=== PATIENT | male | born 1990 | race Caucasian/White ===

== ENCOUNTER 2017-11-17 15:43 | Inpatient (IN) | payer OTHER ==
[2017-11-17] MEDS ORDERED: ACETAMINOPHEN 325 MG TAB PO ×2 (17:00→18:30)
[2017-11-17] MEDS ORDERED: HYDROmorphONE 1 MG/ML SYG (17:33)
[2017-11-17] MEDS: HYDROmorphONE 2 MG/ML SYG IV (17:35)
[2017-11-17 17:37] LABS: ADD MAN DIFF? NO
[2017-11-17 17:38] LABS: WHITE BLOOD COUNT 7.6 10^3/ul (4.8-10.8)
[2017-11-17 17:38] LABS: BASOPHILS % 0.5 % (0.0-2.0); EOSINOPHILS # 0.5 10^3/ul (0.0-0.5); EOSINOPHILS % 6.8 % (0.0-7.0); HEMATOCRIT 37.5 % (42.0-52.0); HEMOGLOBIN 12.3 g/dl (14.0-18.0); LYMPHOCYTES # 1.5 10^3/ul (0.8-2.9); MEAN CORPUSCULAR HEMOGLOBIN 27.3 pg (29.0-33.0); MEAN CORPUSCULAR HGB CONC 32.8 g/dl (32.0-37.0); MEAN CORPUSCULAR VOLUME 83.1 fl (82.0-101.0); MEAN PLATELET VOLUME 9.5 fl (7.4-10.4); MONOCYTE # 0.3 10^3/ul (0.3-0.9); MONOCYTES % 4.2 % (0.0-11.0); NEUTROPHIL # 5.3 10^3/ul (1.6-7.5); PLATELET COUNT 381 10^3/UL (140-415); RED BLOOD COUNT 4.51 10^6/ul (4.70-6.10); RED CELL DISTRIBUTION WIDTH 13.4 % (11.5-14.5)
[2017-11-17 17:57] LABS: LACTIC ACID 1.8 mmol/L (0.5-2.0)
[2017-11-17 17:58] LABS: ALANINE AMINOTRANSFERASE 30 IU/L (13-69); ALBUMIN/GLOBULIN RATIO 0.63; ALKALINE PHOSPHATASE 146 IU/L (42-121); ANION GAP 13 (8-16); ASPARTATE AMINO TRANSFERASE 24 IU/L (15-46); BILIRUBIN,INDIRECT 0.5 mg/dl (0-1.1); BILIRUBIN,TOTAL 0.5 mg/dl (0.2-1.3); BLOOD UREA NITROGEN 10 mg/dl (7-20); CALCIUM 8.3 mg/dl (8.4-10.2); CARBON DIOXIDE 24 mmol/L (21-31); CHLORIDE 106 mmol/L (97-110); CREATININE 0.74 mg/dl (0.61-1.24); GLUCOSE 174 mg/dl (70-220); POTASSIUM 4.1 mmol/L (3.5-5.1); SODIUM 139 mmol/L (135-144); TOTAL PROTEIN 7.7 g/dl (6.1-8.1)
[2017-11-17 17:59] LABS: INR 1.25; PARTIAL THROMBOPLASTIN TIME 34.1 Sec (25.0-35.0); PROTIME 15.9 Sec (11.9-14.9); PT RATIO 1.2
[2017-11-17 18:11] LABS: TROPONIN-I < 0.012 ng/ml (0.000-0.120)
[2017-11-17] MEDS ORDERED: ONDANSETRON 4 MG INJ IV (18:30)
[2017-11-17] MEDS ORDERED: VANCOMYCIN IV PER PHARMACY XX (18:30)
[2017-11-17] MEDS ORDERED: ZOLPIDEM 5 MG TAB PO (18:30)
[2017-11-17] MEDS ORDERED: NACL 0.9% 3 ML SYG IV (18:30)
[2017-11-17] MEDS ORDERED: MAGNESIUM HYDROXIDE 30ML CUP PO (18:30)
[2017-11-17] MEDS: PIPER-TAZO 3.375 GM IV (PMX) 100 ML IVPB (19:27)
[2017-11-17] MEDS: VANCOMYCIN 1.5 GM in SOD CHLORIDE 0.9% 250 ML IVPB (20:02)
[2017-11-17] MEDS: APIXABAN 5 MG TABLET PO (21:16)
[2017-11-17 21:53] LABS: ERYTHROCYTE SEDIMENTATION RATE 47 mm/Hr (0-15)
[2017-11-17 21:55] LABS: LACTIC ACID 1.3 mmol/L (0.5-2.0)
[2017-11-17] MEDS ORDERED: ALBUTEROL/IPRATROPIUM (NEB) 3 ML AMP HHN (22:30)
[2017-11-17 23:40] LABS: LACTIC ACID 2.1 mmol/L (0.5-2.0)
[2017-11-18] MEDS: PIPER-TAZO 3.375 GM IV (PMX) 100 ML IVPB ×4 (00:18→18:32)
[2017-11-18] MEDS: ONDANSETRON 4 MG INJ IV (02:17)
[2017-11-18] MEDS: GUAIFENESIN/DM 5ML CUP PO (02:39)
[2017-11-18] MEDS: traMADol 50 MG TAB PO ×4 (02:39→21:05)
[2017-11-18] MEDS: VANCOMYCIN 1.25 GM in SOD CHLORIDE 0.9% 250 ML IVPB ×2 (04:33→12:00)
[2017-11-18 06:50] LABS: ADD MAN DIFF? NO
[2017-11-18 06:52] LABS: BASOPHIL # 0.1 10^3/ul (0.0-0.1); BASOPHILS % 0.6 % (0.0-2.0); EOSINOPHILS # 0.7 10^3/ul (0.0-0.5); EOSINOPHILS % 7.3 % (0.0-7.0); HEMATOCRIT 32.1 % (42.0-52.0); HEMOGLOBIN 10.5 g/dl (14.0-18.0); LYMPHOCYTES # 1.6 10^3/ul (0.8-2.9); LYMPHOCYTES % 17.3 % (15.0-51.0); MEAN CORPUSCULAR HEMOGLOBIN 27.1 pg (29.0-33.0); MEAN CORPUSCULAR HGB CONC 32.7 g/dl (32.0-37.0); MEAN CORPUSCULAR VOLUME 82.9 fl (82.0-101.0); MEAN PLATELET VOLUME 9.2 fl (7.4-10.4); MONOCYTE # 0.5 10^3/ul (0.3-0.9); MONOCYTES % 5.7 % (0.0-11.0); NEUTROPHIL # 6.2 10^3/ul (1.6-7.5); NEUTROPHILS % 68.9 % (39.0-77.0); PLATELET COUNT 346 10^3/UL (140-415); RED BLOOD COUNT 3.87 10^6/ul (4.70-6.10); RED CELL DISTRIBUTION WIDTH 13.4 % (11.5-14.5)
[2017-11-18 07:14] LABS: ANION GAP 20 (8-16); BLOOD UREA NITROGEN 7 mg/dl (7-20); CALCIUM 7.2 mg/dl (8.4-10.2); CARBON DIOXIDE 22 mmol/L (21-31); CHLORIDE 106 mmol/L (97-110); CREATININE 0.66 mg/dl (0.61-1.24); GLUCOSE 106 mg/dl (70-220); MAGNESIUM 1.4 mg/dl (1.7-2.5); PHOSPHORUS 3.1 mg/dl (2.5-4.9); POTASSIUM 3.6 mmol/L (3.5-5.1); SODIUM 144 mmol/L (135-144)
[2017-11-18 07:15] LABS: LACTIC ACID 0.8 mmol/L (0.5-2.0)
[2017-11-18 07:47] LABS: HEMOGLOBIN A1C 6.1 % (0-5.9)
[2017-11-18] MEDS: APIXABAN 5 MG TABLET PO ×2 (08:39→21:04)
[2017-11-18] MEDS ORDERED: MAGNESIUM SULFATE 4 GM/100 ML 100 ML IVPB (10:30)
[2017-11-18] MEDS: MAG SULFATE 2GM IN 50 ML IVPB ×2 (10:30→12:51)
[2017-11-18 19:36] LABS: VANCOMYCIN,TROUGH 5.8 ug/ml (10.0-20.0)
[2017-11-18] MEDS: VANCOMYCIN 1.5 GM in SOD CHLORIDE 0.9% 250 ML IVPB (21:04)
[2017-11-19] MEDS: PIPER-TAZO 3.375 GM IV (PMX) 100 ML IVPB ×4 (00:14→18:33)
[2017-11-19] MEDS: traMADol 50 MG TAB PO ×3 (03:16→20:40)
[2017-11-19] MEDS: VANCOMYCIN 1.5 GM in SOD CHLORIDE 0.9% 250 ML IVPB ×3 (04:25→20:40)
[2017-11-19 07:04] LABS: ADD MAN DIFF? NO
[2017-11-19 07:12] LABS: BASOPHILS % 0.3 % (0.0-2.0); EOSINOPHILS # 0.2 10^3/ul (0.0-0.5); EOSINOPHILS % 2.2 % (0.0-7.0); HEMATOCRIT 37.3 % (42.0-52.0); LYMPHOCYTES # 1.5 10^3/ul (0.8-2.9); LYMPHOCYTES % 14.7 % (15.0-51.0); MEAN CORPUSCULAR HEMOGLOBIN 26.4 pg (29.0-33.0); MEAN CORPUSCULAR HGB CONC 32.2 g/dl (32.0-37.0); MEAN CORPUSCULAR VOLUME 82.2 fl (82.0-101.0); MEAN PLATELET VOLUME 9.6 fl (7.4-10.4); MONOCYTE # 0.7 10^3/ul (0.3-0.9); MONOCYTES % 7.4 % (0.0-11.0); NEUTROPHIL # 7.5 10^3/ul (1.6-7.5); NEUTROPHILS % 74.8 % (39.0-77.0); PLATELET COUNT 398 10^3/UL (140-415); RED BLOOD COUNT 4.54 10^6/ul (4.70-6.10); RED CELL DISTRIBUTION WIDTH 13.2 % (11.5-14.5)
[2017-11-19 07:34] LABS: ANION GAP 13 (8-16); BLOOD UREA NITROGEN 8 mg/dl (7-20); CALCIUM 8.3 mg/dl (8.4-10.2); CARBON DIOXIDE 24 mmol/L (21-31); CHLORIDE 103 mmol/L (97-110); CREATININE 0.74 mg/dl (0.61-1.24); GLUCOSE 122 mg/dl (70-220); MAGNESIUM 1.8 mg/dl (1.7-2.5); POTASSIUM 4.1 mmol/L (3.5-5.1); SODIUM 136 mmol/L (135-144)
[2017-11-19] MEDS: APIXABAN 5 MG TABLET PO ×2 (09:00→20:39)
[2017-11-20] MEDS: PIPER-TAZO 3.375 GM IV (PMX) 100 ML IVPB ×4 (00:17→17:40)
[2017-11-20 01:24] LABS: TROPONIN-I < 0.012 ng/ml (0.000-0.120)
[2017-11-20] MEDS: VANCOMYCIN 1.5 GM in SOD CHLORIDE 0.9% 250 ML IVPB ×3 (04:18→20:51)
[2017-11-20 07:17] LABS: ADD MAN DIFF? NO
[2017-11-20 07:33] LABS: BASOPHILS % 0.3 % (0.0-2.0); EOSINOPHILS # 0.7 10^3/ul (0.0-0.5); EOSINOPHILS % 6.9 % (0.0-7.0); HEMATOCRIT 36.4 % (42.0-52.0); HEMOGLOBIN 11.9 g/dl (14.0-18.0); LYMPHOCYTES # 1.4 10^3/ul (0.8-2.9); LYMPHOCYTES % 14.4 % (15.0-51.0); MEAN CORPUSCULAR HEMOGLOBIN 26.8 pg (29.0-33.0); MEAN CORPUSCULAR HGB CONC 32.7 g/dl (32.0-37.0); MEAN PLATELET VOLUME 9.7 fl (7.4-10.4); MONOCYTE # 0.6 10^3/ul (0.3-0.9); MONOCYTES % 6.1 % (0.0-11.0); NEUTROPHIL # 7.1 10^3/ul (1.6-7.5); NEUTROPHILS % 71.8 % (39.0-77.0); PLATELET COUNT 349 10^3/UL (140-415); RED BLOOD COUNT 4.44 10^6/ul (4.70-6.10); RED CELL DISTRIBUTION WIDTH 13.2 % (11.5-14.5)
[2017-11-20 07:33] LABS: WHITE BLOOD COUNT 9.9 10^3/ul (4.8-10.8)
[2017-11-20 07:39] LABS: ALANINE AMINOTRANSFERASE 28 IU/L (13-69); ALBUMIN 2.6 g/dl (3.3-4.9); ALBUMIN/GLOBULIN RATIO 0.66; ALKALINE PHOSPHATASE 141 IU/L (42-121); ANION GAP 15 (8-16); ASPARTATE AMINO TRANSFERASE 26 IU/L (15-46); BILIRUBIN,INDIRECT 0.4 mg/dl (0-1.1); BILIRUBIN,TOTAL 0.4 mg/dl (0.2-1.3); BLOOD UREA NITROGEN 10 mg/dl (7-20); CALCIUM 7.8 mg/dl (8.4-10.2); CARBON DIOXIDE 26 mmol/L (21-31); CHLORIDE 99 mmol/L (97-110); CREATININE 0.69 mg/dl (0.61-1.24); GLUCOSE 110 mg/dl (70-220); POTASSIUM 4.2 mmol/L (3.5-5.1); SODIUM 136 mmol/L (135-144); TOTAL PROTEIN 6.5 g/dl (6.1-8.1)
[2017-11-20 07:52] LABS: TROPONIN-I < 0.012 ng/ml (0.000-0.120)
[2017-11-20 08:15] LABS: CHOLESTEROL 105 mg/dl (100-200)
[2017-11-20 08:15] LABS: CHOL/HDL RATIO 6.1 RATIO; HDL CHOLESTEROL 17 mg/dl (28-63); LDL CHOLESTEROL,CALCULATED 69 mg/dl; TRIGLYCERIDES 93 mg/dl (0-149)
[2017-11-20] MEDS: APIXABAN 5 MG TABLET PO ×2 (09:00→20:51)
[2017-11-20] MEDS: ATENOLOL 25 MG TAB PO ×2 (09:00→20:52)
[2017-11-20] MEDS: morphine 2 MG INJ IV (10:16)
[2017-11-20 11:39] LABS: TROPONIN-I < 0.012 ng/ml (0.000-0.120)
[2017-11-20 11:59] LABS: VANCOMYCIN,TROUGH 16.5 ug/ml (10.0-20.0)
[2017-11-20] MEDS: traMADol 50 MG TAB PO (17:41)
[2017-11-21] MEDS: PIPER-TAZO 3.375 GM IV (PMX) 100 ML IVPB ×4 (00:28→17:13)
[2017-11-21] MEDS: VANCOMYCIN 1.5 GM in SOD CHLORIDE 0.9% 250 ML IVPB ×3 (04:04→21:42)
[2017-11-21] MEDS: ATENOLOL 25 MG TAB PO ×2 (08:49→21:43)
[2017-11-21] MEDS: APIXABAN 5 MG TABLET PO ×2 (08:50→21:42)
[2017-11-21] MEDS: traMADol 50 MG TAB PO (17:13)
[2017-11-22] MEDS: PIPER-TAZO 3.375 GM IV (PMX) 100 ML IVPB ×2 (01:29→06:41)
[2017-11-22] MEDS: VANCOMYCIN 1.5 GM in SOD CHLORIDE 0.9% 250 ML IVPB (05:03)
[2017-11-22] MEDS ORDERED: PROPOFOL 20 ML (09:45)
[2017-11-22] MEDS ORDERED: MIDAZOLAM 1 MG/ML 2 ML INJ (09:45)
[2017-11-22 09:57] LABS: INR 1.43; PROTIME 17.7 Sec (11.9-14.9); PT RATIO 1.4
[2017-11-22 09:58] LABS: PARTIAL THROMBOPLASTIN TIME 38.3 Sec (25.0-35.0)
[2017-11-22 10:14] LABS: ANION GAP 11 (8-16); BLOOD UREA NITROGEN 14 mg/dl (7-20); CARBON DIOXIDE 25 mmol/L (21-31); CHLORIDE 107 mmol/L (97-110); CREATININE 0.75 mg/dl (0.61-1.24); GLUCOSE 111 mg/dl (70-220); POTASSIUM 3.7 mmol/L (3.5-5.1); SODIUM 139 mmol/L (135-144)
[2017-11-22] MEDS: APIXABAN 5 MG TABLET PO ×2 (15:59→21:19)
[2017-11-22] MEDS: LEVOFLOXACIN 500 MG TAB PO (15:59)
[2017-11-22] MEDS: traMADol 50 MG TAB PO (16:00)
[2017-11-22] MEDS: ATENOLOL 25 MG TAB PO ×2 (16:00→21:20)
[2017-11-23 04:27] LABS: VANCOMYCIN,TROUGH 6.9 ug/ml (10.0-20.0)
[2017-11-23] MEDS: LEVOFLOXACIN 500 MG TAB PO (06:51)
[2017-11-23] MEDS: ATENOLOL 25 MG TAB PO ×2 (09:30→20:43)
[2017-11-23] MEDS: APIXABAN 5 MG TABLET PO ×2 (09:31→20:43)
[2017-11-23] MEDS ORDERED: VANCOMYCIN IV PER PHARMACY XX (12:30)
[2017-11-23] MEDS: VANCOMYCIN 1.5 GM in SOD CHLORIDE 0.9% 250 ML IVPB (15:44)
[2017-11-23] MEDS: traMADol 50 MG TAB PO ×2 (15:53→19:04)
[2017-11-23] MEDS: CEFTRIAXONE 2 GM/50 ML (PMX) 50 ML IVPB (19:05)
[2017-11-24] MEDS: VANCOMYCIN 1.5 GM in SOD CHLORIDE 0.9% 250 ML IVPB ×3 (00:01→16:50)
[2017-11-24] MEDS: traMADol 50 MG TAB PO ×3 (00:02→21:14)
[2017-11-24] MEDS: morphine 2 MG INJ IV (01:46)
[2017-11-24] MEDS: LEVOFLOXACIN 500 MG TAB PO (06:21)
[2017-11-24] MEDS: ATENOLOL 25 MG TAB PO ×2 (08:16→21:12)
[2017-11-24] MEDS: APIXABAN 5 MG TABLET PO ×2 (08:16→21:11)
[2017-11-24] MEDS: CEFTRIAXONE 2 GM/50 ML (PMX) 50 ML IVPB (13:48)
[2017-11-24 16:27] LABS: CREATININE 0.69 mg/dl (0.61-1.24)
[2017-11-24 16:27] LABS: BLOOD UREA NITROGEN 11 mg/dl (7-20)
[2017-11-24 16:31] LABS: VANCOMYCIN,TROUGH 14.2 ug/ml (10.0-20.0)
[2017-11-24 17:08] LABS: HIV 1&2 ANTIBODY NEGATIVE (NEGATIVE)
[2017-11-24 21:33] LABS: RAPID PLASMA REAGIN NONREACTIVE (NR)
[2017-11-24] MEDS ORDERED: VANCOMYCIN 1.5 GM in SOD CHLORIDE 0.9% 250 ML IVPB (23:00)
[2017-11-25] MEDS: VANCOMYCIN 1.5 GM in SOD CHLORIDE 0.9% 250 ML IVPB ×3 (01:34→16:04)
[2017-11-25] MEDS: LEVOFLOXACIN 500 MG TAB PO (05:49)
[2017-11-25] MEDS: traMADol 50 MG TAB PO ×2 (05:50→14:31)
[2017-11-25 06:12] LABS: ADD MAN DIFF? NO
[2017-11-25 06:16] LABS: BASOPHILS % 0.3 % (0.0-2.0); EOSINOPHILS # 1.3 10^3/ul (0.0-0.5); HEMATOCRIT 31.1 % (42.0-52.0); LYMPHOCYTES # 1.9 10^3/ul (0.8-2.9); LYMPHOCYTES % 21.2 % (15.0-51.0); MEAN CORPUSCULAR HEMOGLOBIN 26.9 pg (29.0-33.0); MEAN CORPUSCULAR HGB CONC 32.2 g/dl (32.0-37.0); MEAN CORPUSCULAR VOLUME 83.6 fl (82.0-101.0); MEAN PLATELET VOLUME 9.8 fl (7.4-10.4); MONOCYTE # 0.4 10^3/ul (0.3-0.9); MONOCYTES % 4.6 % (0.0-11.0); NEUTROPHIL # 5.3 10^3/ul (1.6-7.5); NEUTROPHILS % 58.5 % (39.0-77.0); PLATELET COUNT 239 10^3/UL (140-415); RED BLOOD COUNT 3.72 10^6/ul (4.70-6.10); RED CELL DISTRIBUTION WIDTH 14.4 % (11.5-14.5)
[2017-11-25 06:16] LABS: WHITE BLOOD COUNT 9.1 10^3/ul (4.8-10.8)
[2017-11-25 07:24] LABS: ALANINE AMINOTRANSFERASE 46 IU/L (13-69); ALBUMIN 2.8 g/dl (3.3-4.9); ALBUMIN/GLOBULIN RATIO 0.65; ALKALINE PHOSPHATASE 136 IU/L (42-121); ANION GAP 11 (8-16); ASPARTATE AMINO TRANSFERASE 42 IU/L (15-46); BILIRUBIN,INDIRECT 0.5 mg/dl (0-1.1); BILIRUBIN,TOTAL 0.5 mg/dl (0.2-1.3); BLOOD UREA NITROGEN 12 mg/dl (7-20); CALCIUM 8.4 mg/dl (8.4-10.2); CARBON DIOXIDE 26 mmol/L (21-31); CHLORIDE 107 mmol/L (97-110); CREATININE 0.78 mg/dl (0.61-1.24); GLUCOSE 98 mg/dl (70-220); POTASSIUM 4.4 mmol/L (3.5-5.1); SODIUM 140 mmol/L (135-144); TOTAL PROTEIN 7.1 g/dl (6.1-8.1)
[2017-11-25] MEDS: APIXABAN 5 MG TABLET PO ×2 (08:11→21:01)
[2017-11-25] MEDS: ATENOLOL 25 MG TAB PO ×2 (08:12→21:06)
[2017-11-25] MEDS: LIDOCAINE 2% JELLY 5 ML TOP (10:46)
[2017-11-25] MEDS: CEFTRIAXONE 2 GM/50 ML (PMX) 50 ML IVPB (14:26)
[2017-11-26] MEDS: VANCOMYCIN 1.5 GM in SOD CHLORIDE 0.9% 250 ML IVPB ×3 (01:56→16:52)
[2017-11-26] MEDS: traMADol 50 MG TAB PO (01:56)
[2017-11-26] MEDS: LEVOFLOXACIN 500 MG TAB PO (05:26)
[2017-11-26] MEDS: ATENOLOL 25 MG TAB PO ×2 (09:14→21:00)
[2017-11-26] MEDS: APIXABAN 5 MG TABLET PO ×2 (09:14→21:06)
[2017-11-26] MEDS: CEFTRIAXONE 2 GM/50 ML (PMX) 50 ML IVPB (13:32)
[2017-11-27] MEDS: VANCOMYCIN 1.5 GM in SOD CHLORIDE 0.9% 250 ML IVPB ×2 (01:27→08:27)
[2017-11-27] MEDS: LEVOFLOXACIN 500 MG TAB PO (05:21)
[2017-11-27 08:21] LABS: BLOOD UREA NITROGEN 12 mg/dl (7-20)
[2017-11-27 08:21] LABS: CREATININE 0.79 mg/dl (0.61-1.24)
[2017-11-27] MEDS: DOCUSATE SODIUM 100 MG CAP PO (08:27)
[2017-11-27] MEDS: APIXABAN 5 MG TABLET PO (08:27)
[2017-11-27] MEDS: ATENOLOL 25 MG TAB PO (08:28)
== END 2017-11-27 12:00 | disposition left against medical advice (07) | DRG 314 ==
LOC: E/R 15:43 → MS4 16:44
PROVIDERS: Internal Medicine
PROC: B24BZZ4 Ultrasonography of Heart with Aorta, Transesophageal (ICD-10-PCS; 2017-11-22 09:00)
PROC: 0HBJXZX Excision of Left Upper Leg Skin, External Approach, Diagnostic (ICD-10-PCS; principal; 2017-11-22 09:20)
DX: T82.6XXA Infection and inflammatory reaction due to cardiac valve prosthesis, initial encounter (principal); I33.0 Acute and subacute infective endocarditis; J18.9 Pneumonia, unspecified organism; I26.99 Other pulmonary embolism without acute cor pulmonale; I42.9 Cardiomyopathy, unspecified; J90 Pleural effusion, not elsewhere classified; E83.42 Hypomagnesemia; E83.51 Hypocalcemia; L98.9 Disorder of the skin and subcutaneous tissue, unspecified; F15.10 Other stimulant abuse, uncomplicated; F12.10 Cannabis abuse, uncomplicated; D64.9 Anemia, unspecified; R21 Rash and other nonspecific skin eruption; I25.10 Atherosclerotic heart disease of native coronary artery without angina pectoris; F17.210 Nicotine dependence, cigarettes, uncomplicated; Y84.8 Other medical procedures as the cause of abnormal reaction of the patient, or of later complication, without mention of misadventure at the time of the procedure; Y92.89 Other specified places as the place of occurrence of the external cause; Z79.02 Long term (current) use of antithrombotics/antiplatelets; Z59.0 Homelessness; Z89.421 Acquired absence of other right toe(s); Z89.021 Acquired absence of right finger(s); Z95.0 Presence of cardiac pacemaker; Z95.2 Presence of prosthetic heart valve
CPT/HCPCS: 36415; 71045; 71250; 73200; 80048; 80053; 80061; 80202; 82565; 83036; 83605; 83735; 84100; 84443; 84484; 84520; 85025; 85610; 85651; 85730; 86592; 86703; 87040; 87081; 87086; 88305; 93005; 93306; 93312; 93320; 93325; 93970; 96365; 96368; 96375; 99285-25

== ENCOUNTER 2017-12-05 21:50 | Inpatient (IN) | payer OTHER ==
[2017-12-06 02:47] LABS: ADD MAN DIFF? NO
[2017-12-06 02:48] LABS: WHITE BLOOD COUNT 7.5 10^3/ul (4.8-10.8)
[2017-12-06 02:48] LABS: BASOPHIL # 0.1 10^3/ul (0.0-0.1); BASOPHILS % 0.7 % (0.0-2.0); EOSINOPHILS # 0.5 10^3/ul (0.0-0.5); EOSINOPHILS % 6.8 % (0.0-7.0); HEMATOCRIT 27.8 % (42.0-52.0); HEMOGLOBIN 8.6 g/dl (14.0-18.0); LYMPHOCYTES # 1.9 10^3/ul (0.8-2.9); LYMPHOCYTES % 25.8 % (15.0-51.0); MEAN CORPUSCULAR HEMOGLOBIN 27.7 pg (29.0-33.0); MEAN CORPUSCULAR HGB CONC 30.9 g/dl (32.0-37.0); MEAN CORPUSCULAR VOLUME 89.4 fl (82.0-101.0); MEAN PLATELET VOLUME 9.2 fl (7.4-10.4); MONOCYTE # 0.5 10^3/ul (0.3-0.9); MONOCYTES % 7.1 % (0.0-11.0); NEUTROPHIL # 4.4 10^3/ul (1.6-7.5); NEUTROPHILS % 58.8 % (39.0-77.0); PLATELET COUNT 267 10^3/UL (140-415); RED BLOOD COUNT 3.11 10^6/ul (4.70-6.10); RED CELL DISTRIBUTION WIDTH 18.8 % (11.5-14.5)
[2017-12-06 03:10] LABS: INR 1.49; PROTIME 18.3 Sec (11.9-14.9); PT RATIO 1.4
[2017-12-06 03:13] LABS: ANION GAP 15 (8-16); BLOOD UREA NITROGEN 15 mg/dl (7-20); CALCIUM 8.9 mg/dl (8.4-10.2); CARBON DIOXIDE 24 mmol/L (21-31); CHLORIDE 110 mmol/L (97-110); CREATININE 0.93 mg/dl (0.61-1.24); GLUCOSE 111 mg/dl (70-220); POTASSIUM 4.9 mmol/L (3.5-5.1); SODIUM 144 mmol/L (135-144)
[2017-12-06 03:22] LABS: B-TYPE NATRIURETIC PEPTIDE 2610 PG/ML (0-125); TROPONIN-I < 0.010 ng/ml (0.000-0.120)
[2017-12-06 07:17] LABS: INR 1.42; PROTIME 17.6 Sec (11.9-14.9); PT RATIO 1.4
[2017-12-06 07:18] LABS: PARTIAL THROMBOPLASTIN TIME 34.3 Sec (25.0-35.0)
[2017-12-06] MEDS: FUROSEMIDE 20 MG INJ IV (08:07)
[2017-12-06] MEDS: PANTOPRAZOLE 40 MG INJ IV ×2 (09:51→18:32)
[2017-12-06 10:56] LABS: AMPHETAMINE/METHAMPHETAMINE Positive (NEGATIVE); BARBITURATES Negative (NEGATIVE); BENZODIAZEPINES Negative (NEGATIVE); CANNABINOIDS Negative (NEGATIVE); COCAINE Negative (NEGATIVE); OPIATES Negative (NEGATIVE)
[2017-12-06 11:28] LABS: HEMATOCRIT 30.7 % (42.0-52.0); HEMOGLOBIN 9.5 g/dl (14.0-18.0)
[2017-12-06 11:49] LABS: INR 1.32; PARTIAL THROMBOPLASTIN TIME 34.9 Sec (25.0-35.0); PROTIME 16.6 Sec (11.9-14.9); PT RATIO 1.3
[2017-12-06] MEDS: IOHEXOL 300MG/ML 150 ML BTL (11:50)
[2017-12-06] MEDS: SOD CHLORIDE 0.9% 100 ML (11:50)
[2017-12-06 11:55] LABS: CREATINE KINASE 64 IU/L (23-200)
[2017-12-06 12:10] LABS: CK INDEX 1.9; TROPONIN-I < 0.010 ng/ml (0.000-0.120)
[2017-12-06 15:21] LABS: CREATINE KINASE 50 IU/L (23-200)
[2017-12-06 15:34] LABS: CK INDEX 2.1; CK-MB 1.06 ng/ml (0.0-2.4); TROPONIN-I < 0.010 ng/ml (0.000-0.120)
[2017-12-06] MEDS: CEFTRIAXONE 1 GM/50 ML (PMX) 50 ML IVPB (18:32)
[2017-12-06] MEDS: LEVOFLOXACIN 500 MG TAB PO (18:38)
[2017-12-06] MEDS: PHYTONADIONE 5 MG in DEXTROSE 5% 50 ML IVPB (19:10)
[2017-12-06] MEDS: METHADONE 10 MG TAB PO (20:26)
[2017-12-07] MEDS: LEVOFLOXACIN 500 MG TAB PO (05:26)
[2017-12-07] MEDS: PANTOPRAZOLE 40 MG INJ IV ×2 (05:26→17:59)
[2017-12-07 06:52] LABS: ADD MAN DIFF? NO
[2017-12-07 06:54] LABS: BASOPHILS % 0.4 % (0.0-2.0); EOSINOPHILS # 1.1 10^3/ul (0.0-0.5); EOSINOPHILS % 13.6 % (0.0-7.0); HEMATOCRIT 29.6 % (42.0-52.0); HEMOGLOBIN 8.9 g/dl (14.0-18.0); LYMPHOCYTES # 1.6 10^3/ul (0.8-2.9); LYMPHOCYTES % 20.4 % (15.0-51.0); MEAN CORPUSCULAR HEMOGLOBIN 27.1 pg (29.0-33.0); MEAN CORPUSCULAR HGB CONC 30.1 g/dl (32.0-37.0); MEAN CORPUSCULAR VOLUME 90.2 fl (82.0-101.0); MEAN PLATELET VOLUME 9.1 fl (7.4-10.4); MONOCYTE # 0.4 10^3/ul (0.3-0.9); MONOCYTES % 5.3 % (0.0-11.0); NEUTROPHIL # 4.7 10^3/ul (1.6-7.5); NEUTROPHILS % 59.7 % (39.0-77.0); PLATELET COUNT 264 10^3/UL (140-415); RED BLOOD COUNT 3.28 10^6/ul (4.70-6.10); RED CELL DISTRIBUTION WIDTH 18.8 % (11.5-14.5)
[2017-12-07 06:54] LABS: WHITE BLOOD COUNT 7.9 10^3/ul (4.8-10.8)
[2017-12-07 07:14] LABS: INR 1.27; PROTIME 16.1 Sec (11.9-14.9); PT RATIO 1.3
[2017-12-07 07:16] LABS: IRON 44 ug/dl (35-150)
[2017-12-07 07:21] LABS: ALANINE AMINOTRANSFERASE 37 IU/L (13-69); ALBUMIN 3.2 g/dl (3.3-4.9); ALBUMIN/GLOBULIN RATIO 0.68; ALKALINE PHOSPHATASE 139 IU/L (42-121); ANION GAP 10 (8-16); ASPARTATE AMINO TRANSFERASE 34 IU/L (15-46); BILIRUBIN,INDIRECT 0.2 mg/dl (0-1.1); BILIRUBIN,TOTAL 0.2 mg/dl (0.2-1.3); BLOOD UREA NITROGEN 13 mg/dl (7-20); CALCIUM 8.6 mg/dl (8.4-10.2); CARBON DIOXIDE 29 mmol/L (21-31); CHLORIDE 109 mmol/L (97-110); CREATININE 0.88 mg/dl (0.61-1.24); GLUCOSE 80 mg/dl (70-220); POTASSIUM 4.1 mmol/L (3.5-5.1); SODIUM 144 mmol/L (135-144); TOTAL PROTEIN 7.9 g/dl (6.1-8.1)
[2017-12-07 07:25] LABS: % IRON SATURATION 16 % SAT (22-52); TOTAL IRON BINDING CAPACITY 272 ug/dl (241-421)
[2017-12-07] MEDS: CEFTRIAXONE 1 GM/50 ML (PMX) 50 ML IVPB (13:01)
[2017-12-07] MEDS ORDERED: VANCOMYCIN IV PER PHARMACY XX (13:30)
[2017-12-07] MEDS: VANCOMYCIN 1.75 GM in SOD CHLORIDE 0.9% 500 ML IVPB (16:11)
[2017-12-07] MEDS: METHADONE 10 MG TAB PO (21:03)
[2017-12-07] MEDS: PERMETHRIN 5% 60 GM CR TOP (21:56)
[2017-12-08] MEDS: VANCOMYCIN 1.5 GM in SOD CHLORIDE 0.9% 250 ML IVPB ×3 (00:31→16:00)
[2017-12-08] MEDS: LEVOFLOXACIN 500 MG TAB PO (05:28)
[2017-12-08] MEDS: PANTOPRAZOLE 40 MG INJ IV ×2 (05:28→17:58)
[2017-12-08] MEDS: METHADONE 10 MG TAB PO (08:22)
[2017-12-08 16:04] LABS: VANCOMYCIN,TROUGH 19.1 ug/ml (10.0-20.0)
[2017-12-08] MEDS: VANCOMYCIN 1.25 GM in SOD CHLORIDE 0.9% 250 ML IVPB (17:58)
[2017-12-09] MEDS: VANCOMYCIN 1.25 GM in SOD CHLORIDE 0.9% 250 ML IVPB ×3 (03:22→17:22)
[2017-12-09] MEDS: LEVOFLOXACIN 500 MG TAB PO (06:21)
[2017-12-09] MEDS: PANTOPRAZOLE 40 MG INJ IV ×2 (06:22→17:22)
[2017-12-09 07:42] LABS: BLOOD UREA NITROGEN 8 mg/dl (7-20)
[2017-12-09] MEDS: METHADONE 10 MG TAB PO (09:08)
[2017-12-09] MEDS ORDERED: FUROSEMIDE 20 MG INJ (13:17)
[2017-12-09] MEDS: FUROSEMIDE 20 MG INJ IV ×2 (13:26→17:23)
[2017-12-10 01:46] LABS: VANCOMYCIN,TROUGH 20.8 ug/ml (10.0-20.0)
[2017-12-10] MEDS: VANCOMYCIN 1.25 GM in SOD CHLORIDE 0.9% 250 ML IVPB (02:03)
[2017-12-10] MEDS: ACETAMINOPHEN 325 MG TAB PO ×2 (04:28→14:43)
[2017-12-10] MEDS: LEVOFLOXACIN 500 MG TAB PO (06:17)
[2017-12-10] MEDS: PANTOPRAZOLE 40 MG INJ IV ×2 (06:18→18:06)
[2017-12-10] MEDS: FUROSEMIDE 20 MG INJ IV ×2 (06:20→18:07)
[2017-12-10] MEDS: METHADONE 10 MG TAB PO (08:23)
[2017-12-10] MEDS: CEFTRIAXONE 1 GM/50 ML (PMX) 50 ML IVPB (10:13)
[2017-12-10] MEDS: VANCOMYCIN 750 MG in SOD CHLORIDE 0.9% 150 ML IVPB ×2 (13:41→21:50)
[2017-12-10] MEDS: SUCRALFATE (100 MG/ML) 10ML CUP PO ×2 (18:07→21:36)
[2017-12-11] MEDS: FUROSEMIDE 20 MG INJ IV ×2 (06:27→18:13)
[2017-12-11] MEDS: PANTOPRAZOLE 40 MG INJ IV ×2 (06:27→18:13)
[2017-12-11] MEDS: SUCRALFATE (100 MG/ML) 10ML CUP PO ×4 (06:28→20:17)
[2017-12-11] MEDS: ACETAMINOPHEN 325 MG TAB PO (06:28)
[2017-12-11] MEDS: VANCOMYCIN 750 MG in SOD CHLORIDE 0.9% 150 ML IVPB ×3 (06:57→22:19)
[2017-12-11 06:58] LABS: BLOOD UREA NITROGEN 10 mg/dl (7-20)
[2017-12-11 06:58] LABS: CREATININE 0.85 mg/dl (0.61-1.24)
[2017-12-11] MEDS: METHADONE 10 MG TAB PO (07:43)
[2017-12-11] MEDS: CEFTRIAXONE 1 GM/50 ML (PMX) 50 ML IVPB (10:31)
[2017-12-11 21:22] LABS: VANCOMYCIN,TROUGH 13.5 ug/ml (10.0-20.0)
[2017-12-12 05:22] LABS: ADD MAN DIFF? NO; BASOPHILS % 0.4 % (0.0-2.0); EOSINOPHILS # 0.7 10^3/ul (0.0-0.5); EOSINOPHILS % 6.8 % (0.0-7.0); HEMATOCRIT 30.5 % (42.0-52.0); HEMOGLOBIN 9.5 g/dl (14.0-18.0); LYMPHOCYTES # 1.9 10^3/ul (0.8-2.9); LYMPHOCYTES % 19.6 % (15.0-51.0); MEAN CORPUSCULAR HEMOGLOBIN 27.1 pg (29.0-33.0); MEAN CORPUSCULAR HGB CONC 31.1 g/dl (32.0-37.0); MEAN CORPUSCULAR VOLUME 86.9 fl (82.0-101.0); MEAN PLATELET VOLUME 9.2 fl (7.4-10.4); MONOCYTE # 0.5 10^3/ul (0.3-0.9); MONOCYTES % 5.6 % (0.0-11.0); NEUTROPHIL # 6.4 10^3/ul (1.6-7.5); NEUTROPHILS % 67.3 % (39.0-77.0); PLATELET COUNT 263 10^3/UL (140-415); RED BLOOD COUNT 3.51 10^6/ul (4.70-6.10); RED CELL DISTRIBUTION WIDTH 17.2 % (11.5-14.5)
[2017-12-12 05:22] LABS: WHITE BLOOD COUNT 9.6 10^3/ul (4.8-10.8)
[2017-12-12] MEDS: PANTOPRAZOLE 40 MG INJ IV ×2 (05:56→18:28)
[2017-12-12] MEDS: VANCOMYCIN 750 MG in SOD CHLORIDE 0.9% 150 ML IVPB ×3 (05:56→22:06)
[2017-12-12] MEDS: FUROSEMIDE 20 MG INJ IV ×2 (05:56→18:28)
[2017-12-12] MEDS: ACETAMINOPHEN 325 MG TAB PO (06:27)
[2017-12-12] MEDS: SUCRALFATE (100 MG/ML) 10ML CUP PO ×4 (08:35→22:52)
[2017-12-12] MEDS: METHADONE 10 MG TAB PO (08:36)
[2017-12-12] MEDS: CEFTRIAXONE 1 GM/50 ML (PMX) 50 ML IVPB (10:20)
[2017-12-12] MEDS: LORAZEPAM 2 MG INJ IV ×2 (13:21→23:12)
[2017-12-13 05:39] LABS: CREATININE 0.88 mg/dl (0.61-1.24)
[2017-12-13 05:39] LABS: BLOOD UREA NITROGEN 10 mg/dl (7-20)
[2017-12-13] MEDS: VANCOMYCIN 750 MG in SOD CHLORIDE 0.9% 150 ML IVPB ×3 (06:02→22:29)
[2017-12-13] MEDS: PANTOPRAZOLE 40 MG INJ IV ×2 (06:02→17:34)
[2017-12-13] MEDS: FUROSEMIDE 20 MG INJ IV ×2 (06:02→17:44)
[2017-12-13] MEDS: LORAZEPAM 2 MG INJ IV ×3 (06:31→20:45)
[2017-12-13] MEDS: SUCRALFATE (100 MG/ML) 10ML CUP PO ×4 (09:49→20:45)
[2017-12-13] MEDS: CEFTRIAXONE 1 GM/50 ML (PMX) 50 ML IVPB (09:49)
[2017-12-13] MEDS: METHADONE 10 MG TAB PO (09:51)
[2017-12-14] MEDS: ACETAMINOPHEN 325 MG TAB PO ×2 (04:20→13:34)
[2017-12-14] MEDS: FUROSEMIDE 20 MG INJ IV ×2 (06:18→17:38)
[2017-12-14] MEDS: VANCOMYCIN 750 MG in SOD CHLORIDE 0.9% 150 ML IVPB ×3 (06:18→22:30)
[2017-12-14] MEDS: PANTOPRAZOLE 40 MG INJ IV ×2 (06:18→17:38)
[2017-12-14] MEDS: SUCRALFATE (100 MG/ML) 10ML CUP PO ×4 (06:19→21:13)
[2017-12-14] MEDS: METHADONE 10 MG TAB PO (09:16)
[2017-12-14] MEDS: CEFTRIAXONE 1 GM/50 ML (PMX) 50 ML IVPB (10:58)
[2017-12-14 21:34] LABS: VANCOMYCIN,TROUGH 12.8 ug/ml (10.0-20.0)
[2017-12-15] MEDS: VANCOMYCIN 750 MG in SOD CHLORIDE 0.9% 150 ML IVPB (06:02)
[2017-12-15] MEDS: SUCRALFATE (100 MG/ML) 10ML CUP PO ×5 (06:02→21:54)
[2017-12-15] MEDS: PANTOPRAZOLE 40 MG INJ IV ×2 (06:02→18:30)
[2017-12-15] MEDS: FUROSEMIDE 20 MG INJ IV ×2 (06:03→18:30)
[2017-12-15] MEDS: LORAZEPAM 2 MG INJ IV (08:44)
[2017-12-15] MEDS: ACETAMINOPHEN 325 MG TAB PO (08:44)
[2017-12-15] MEDS: CEFTRIAXONE 1 GM/50 ML (PMX) 50 ML IVPB (10:39)
[2017-12-15] MEDS: VANCOMYCIN 1 GM 250 ML IVPB ×2 (13:35→21:51)
[2017-12-16] MEDS: SUCRALFATE (100 MG/ML) 10ML CUP PO ×4 (06:17→20:41)
[2017-12-16] MEDS: FUROSEMIDE 20 MG INJ IV ×2 (06:18→17:38)
[2017-12-16] MEDS: PANTOPRAZOLE 40 MG INJ IV ×2 (06:18→17:38)
[2017-12-16] MEDS: VANCOMYCIN 1 GM 250 ML IVPB ×3 (06:18→22:43)
[2017-12-16] MEDS: CEFTRIAXONE 1 GM/50 ML (PMX) 50 ML IVPB (10:25)
[2017-12-17 06:05] LABS: BLOOD UREA NITROGEN 10 mg/dl (7-20)
[2017-12-17] MEDS: FUROSEMIDE 20 MG INJ IV (06:18)
[2017-12-17] MEDS: PANTOPRAZOLE 40 MG INJ IV (06:18)
[2017-12-17] MEDS: VANCOMYCIN 1 GM 250 ML IVPB (06:21)
[2017-12-17] MEDS: SUCRALFATE (100 MG/ML) 10ML CUP PO (08:33)
[2017-12-17] MEDS: CEFTRIAXONE 1 GM/50 ML (PMX) 50 ML IVPB (10:07)
[2017-12-17] MEDS ORDERED: VANCOMYCIN 750 MG in SOD CHLORIDE 0.9% 150 ML IVPB (14:00)
== END 2017-12-17 12:10 | disposition left against medical advice (07) | DRG 306 ==
LOC: E/R 21:50 → MS1 12-10 14:25 → TEL 12-08 16:20
PROC: 0DJ08ZZ Inspection of Upper Intestinal Tract, Via Natural or Artificial Opening Endoscopic (ICD-10-PCS; principal; 2017-12-06 15:30)
DX: I38 Endocarditis, valve unspecified (principal); I50.31 Acute diastolic (congestive) heart failure; D62 Acute posthemorrhagic anemia; K92.0 Hematemesis; F11.20 Opioid dependence, uncomplicated; M25.572 Pain in left ankle and joints of left foot; F12.929 Cannabis use, unspecified with intoxication, unspecified; Z95.2 Presence of prosthetic heart valve; F17.200 Nicotine dependence, unspecified, uncomplicated; Z59.0 Homelessness; K26.9 Duodenal ulcer, unspecified as acute or chronic, without hemorrhage or perforation; K25.9 Gastric ulcer, unspecified as acute or chronic, without hemorrhage or perforation; Z86.718 Personal history of other venous thrombosis and embolism; L30.8 Other specified dermatitis
CPT/HCPCS: 36415; 71045; 73700; 80048; 80053; 80202; 80307; 82550; 82553; 82565; 82728; 83540; 83880; 84484; 84520; 85014; 85018; 85025; 85610; 85730; 87040; 93005; 93970; 99285-25

== ENCOUNTER 2017-12-19 17:39 | Inpatient (IN) | payer OTHER ==
[2017-12-19] MEDS ORDERED: NACL 0.9% 3 ML SYG IV (18:30)
[2017-12-19] MEDS ORDERED: VANCOMYCIN IV PER PHARMACY XX (18:30)
[2017-12-19] MEDS ORDERED: HYDROCODONE/APAP (5/325) TAB PO (18:30)
[2017-12-19] MEDS: CEFTRIAXONE 1 GM/50 ML (PMX) 50 ML IVPB (20:12)
[2017-12-19] MEDS: ENOXAPARIN 80 MG/0.8 ML SYG SC (20:18)
[2017-12-19] MEDS: VANCOMYCIN 1.75 GM in SOD CHLORIDE 0.9% 500 ML IVPB (21:02)
[2017-12-20] MEDS: VANCOMYCIN 1 GM 250 ML IVPB ×3 (03:46→20:36)
[2017-12-20 06:08] LABS: ADD MAN DIFF? NO
[2017-12-20 06:16] LABS: BASOPHIL # 0.1 10^3/ul (0.0-0.1); BASOPHILS % 0.7 % (0.0-2.0); EOSINOPHILS # 0.6 10^3/ul (0.0-0.5); EOSINOPHILS % 6.4 % (0.0-7.0); HEMATOCRIT 30.8 % (42.0-52.0); HEMOGLOBIN 9.7 g/dl (14.0-18.0); LYMPHOCYTES # 1.4 10^3/ul (0.8-2.9); LYMPHOCYTES % 16.5 % (15.0-51.0); MEAN CORPUSCULAR HEMOGLOBIN 26.3 pg (29.0-33.0); MEAN CORPUSCULAR HGB CONC 31.5 g/dl (32.0-37.0); MEAN CORPUSCULAR VOLUME 83.5 fl (82.0-101.0); MEAN PLATELET VOLUME 9.5 fl (7.4-10.4); MONOCYTE # 0.6 10^3/ul (0.3-0.9); MONOCYTES % 6.8 % (0.0-11.0); PLATELET COUNT 253 10^3/UL (140-415); RED BLOOD COUNT 3.69 10^6/ul (4.70-6.10); RED CELL DISTRIBUTION WIDTH 16.6 % (11.5-14.5)
[2017-12-20 06:16] LABS: WHITE BLOOD COUNT 8.7 10^3/ul (4.8-10.8)
[2017-12-20 06:52] LABS: ALANINE AMINOTRANSFERASE 18 IU/L (13-69); ALBUMIN 3.6 g/dl (3.3-4.9); ALBUMIN/GLOBULIN RATIO 0.73; ALKALINE PHOSPHATASE 137 IU/L (42-121); ANION GAP 12 (8-16); ASPARTATE AMINO TRANSFERASE 24 IU/L (15-46); BILIRUBIN,INDIRECT 0.6 mg/dl (0-1.1); BILIRUBIN,TOTAL 0.6 mg/dl (0.2-1.3); BLOOD UREA NITROGEN 6 mg/dl (7-20); CALCIUM 8.9 mg/dl (8.4-10.2); CARBON DIOXIDE 24 mmol/L (21-31); CHLORIDE 111 mmol/L (97-110); CREATININE 0.77 mg/dl (0.61-1.24); GLUCOSE 97 mg/dl (70-220); SODIUM 143 mmol/L (135-144); TOTAL PROTEIN 8.5 g/dl (6.1-8.1)
[2017-12-20] MEDS: ENOXAPARIN 80 MG/0.8 ML SYG SC ×2 (09:20→20:46)
[2017-12-20] MEDS: CEFTRIAXONE 1 GM/50 ML (PMX) 50 ML IVPB (17:32)
[2017-12-20] MEDS: COLLAGENASE 5 GM (UD JAR) TOP (20:37)
[2017-12-21] MEDS: VANCOMYCIN 1 GM 250 ML IVPB ×3 (03:37→20:10)
[2017-12-21] MEDS: PANTOPRAZOLE (EC) 40 MG TAB PO (05:42)
[2017-12-21] MEDS: COLLAGENASE 5 GM (UD JAR) TOP (07:57)
[2017-12-21] MEDS: ENOXAPARIN 80 MG/0.8 ML SYG SC ×2 (07:57→22:22)
[2017-12-21] MEDS: CEFTRIAXONE 1 GM/50 ML (PMX) 50 ML IVPB (17:32)
[2017-12-21] MEDS: METOPROLOL 25 MG TAB PO (20:12)
[2017-12-21 20:20] LABS: TROPONIN-I < 0.010 ng/ml (0.000-0.120)
[2017-12-22 01:16] LABS: TROPONIN-I < 0.010 ng/ml (0.000-0.120)
[2017-12-22] MEDS: VANCOMYCIN 1 GM 250 ML IVPB ×2 (04:07→12:11)
[2017-12-22] MEDS: PANTOPRAZOLE (EC) 40 MG TAB PO (06:29)
[2017-12-22 06:35] LABS: BLOOD UREA NITROGEN 9 mg/dl (7-20)
[2017-12-22 06:35] LABS: CREATININE 0.86 mg/dl (0.61-1.24)
[2017-12-22] MEDS: COLLAGENASE 5 GM (UD JAR) TOP (08:19)
[2017-12-22] MEDS: METOPROLOL 25 MG TAB PO (08:19)
[2017-12-22] MEDS: ENOXAPARIN 80 MG/0.8 ML SYG SC (08:27)
== END 2017-12-22 17:30 | disposition left against medical advice (07) | DRG 288 ==
LOC: TEL 17:39
DX: I33.0 Acute and subacute infective endocarditis (principal); I26.99 Other pulmonary embolism without acute cor pulmonale; F15.90 Other stimulant use, unspecified, uncomplicated; F17.210 Nicotine dependence, cigarettes, uncomplicated; D64.9 Anemia, unspecified; L30.9 Dermatitis, unspecified; K25.7 Chronic gastric ulcer without hemorrhage or perforation; Z91.19 Patient's noncompliance with other medical treatment and regimen; Z95.2 Presence of prosthetic heart valve; Z95.0 Presence of cardiac pacemaker; Z79.82 Long term (current) use of aspirin
CPT/HCPCS: 71045; 80053; 80202; 82565; 84484; 84520; 85025; 87040; 93005; 93308

== ENCOUNTER 2018-07-23 15:19 | Inpatient (IN) | payer OTHER ==
[2018-07-23] MEDS: SODIUM CHLORIDE 0.9% 1L BAG IV* (15:44)
[2018-07-23 16:28] LABS: ADD MAN DIFF? NO
[2018-07-23 16:33] LABS: BASOPHIL # 0.1 10^3/ul (0.0-0.1); BASOPHILS % 0.4 % (0.0-2.0); LYMPHOCYTES # 1.5 10^3/ul (0.8-2.9); LYMPHOCYTES % 6.7 % (15.0-51.0); MEAN CORPUSCULAR HGB CONC 33.3 g/dl (32.0-37.0); MEAN CORPUSCULAR VOLUME 80.9 fl (82.0-101.0); MEAN PLATELET VOLUME 9.1 fl (7.4-10.4); MONOCYTE # 0.8 10^3/ul (0.3-0.9); MONOCYTES % 3.7 % (0.0-11.0); NEUTROPHIL # 19.7 10^3/ul (1.6-7.5); NEUTROPHILS % 88.5 % (39.0-77.0); PLATELET COUNT 188 10^3/UL (140-415); RED BLOOD COUNT 4.08 10^6/ul (4.70-6.10)
[2018-07-23 16:33] LABS: WHITE BLOOD COUNT 22.3 10^3/ul (4.8-10.8)
[2018-07-23 16:53] LABS: ALANINE AMINOTRANSFERASE 7 IU/L (13-69); ALBUMIN 3.7 g/dl (3.3-4.9); ALBUMIN/GLOBULIN RATIO 0.58; ALKALINE PHOSPHATASE 225 IU/L (42-121); ANION GAP 11 (5-13); ASPARTATE AMINO TRANSFERASE 30 IU/L (15-46); BILIRUBIN,INDIRECT 0.8 mg/dl (0-1.1); BILIRUBIN,TOTAL 0.8 mg/dl (0.2-1.3); BLOOD UREA NITROGEN 12 mg/dl (7-20); CALCIUM 8.7 mg/dl (8.4-10.2); CARBON DIOXIDE 21 mmol/L (21-31); CHLORIDE 100 mmol/L (97-110); CREATININE 1.11 mg/dl (0.61-1.24); Estimated GFR > 60 mL/min (>60); GLUCOSE 106 mg/dl (70-220); INR 1.31; POTASSIUM 3.9 mmol/L (3.5-5.1); PROTIME 16.4 Sec (11.9-14.9); PT RATIO 1.3; SODIUM 132 mmol/L (135-144)
[2018-07-23] MEDS: PIPER-TAZO 3.375 GM IV (PMX) 100 ML IVPB ×2 (16:54→23:55)
[2018-07-23 16:55] LABS: PARTIAL THROMBOPLASTIN TIME 43.4 Sec (23.0-35.0)
[2018-07-23 17:05] LABS: TROPONIN-I 0.024 ng/ml (0.000-0.120)
[2018-07-23 17:07] LABS: ETHANOL < 10.0 mg/dl (0-0)
[2018-07-23 17:22] LABS: ADD UMIC YES; UR ASCORBIC ACID NEGATIVE (NEGATIVE); UR BACTERIA FEW /HPF (NONE SEEN); UR BILIRUBIN (Dip) NEGATIVE (NEGATIVE); UR BLOOD (Dip) 3+ mg/dL (NEGATIVE); UR CLARITY CLEAR (CLEAR); UR COLOR AMBER (YELLOW); UR GLUCOSE (Dip) NEGATIVE (NEGATIVE); UR HYALINE CAST FEW /HPF (NONE SEEN); UR KETONES (Dip) NEGATIVE (NEGATIVE); UR LEUKOCYTE ESTERASE (Dip) NEGATIVE Leu/ul (NEGATIVE); UR NITRITE (Dip) NEGATIVE (NEGATIVE); UR RBC 27 /HPF (0-5); UR SPECIFIC GRAVITY (Dip) 1.011 (1.003-1.030); UR TOTAL PROTEIN (Dip) 2+ mg/dl (NEGATIVE); UR UROBILINOGEN (Dip) 2+ mg/dL (NEGATIVE); UR WBC 9 /HPF (0-5)
[2018-07-23 17:34] LABS: BARBITURATES Negative (NEGATIVE); BENZODIAZEPINES Negative (NEGATIVE); CANNABINOIDS Positive (NEGATIVE); COCAINE Negative (NEGATIVE); OPIATES Negative (NEGATIVE)
[2018-07-23] MEDS: VANCOMYCIN 1 GM (PMX) 250 ML IVPB (17:41)
[2018-07-23] MEDS: SOD CHLORIDE 0.9% 2,450 ML IV (17:41)
[2018-07-23 17:45] LABS: AMPHETAMINE/METHAMPHETAMINE POSITIVE (NEGATIVE)
[2018-07-23] MEDS ORDERED: NACL 0.9% 3 ML SYG IV (18:30)
[2018-07-23] MEDS ORDERED: NITROGLYCERIN (SL) 0.4 MG TAB SL (18:30)
[2018-07-23] MEDS ORDERED: hydrALAzine 20 MG INJ IV (18:30)
[2018-07-23] MEDS ORDERED: VANCOMYCIN IV PER PHARMACY XX (18:30)
[2018-07-23 19:14] LABS: INR 1.42; PROTIME 17.5 Sec (11.9-14.9); PT RATIO 1.4
[2018-07-23 19:15] LABS: PARTIAL THROMBOPLASTIN TIME 43.9 Sec (23.0-35.0)
[2018-07-23 19:30] LABS: LACTIC ACID 2.3 mmol/L (0.5-2.0)
[2018-07-23 19:47] LABS: FREE T4 (FREE THYROXINE) 1.17 ng/dl (0.79-2.35)
[2018-07-23] MEDS: HYDROCODONE/APAP (5/325) TAB PO (20:44)
[2018-07-23] MEDS: SOD CHLORIDE 0.45% 1,000 ML IV (20:44)
[2018-07-23 21:20] LABS: LACTIC ACID 3.6 mmol/L (0.5-2.0)
[2018-07-23] MEDS: VANCOMYCIN 500 MG (PMX) 100 ML IVPB (21:36)
[2018-07-23] MEDS: SOD CHLORIDE 0.9% 250 ML IV (22:06)
[2018-07-23] MEDS: SOD CHLORIDE 0.9% 1,000 ML IV (23:05)
[2018-07-24 01:36] LABS: LACTIC ACID 2.3 mmol/L (0.5-2.0)
[2018-07-24] MEDS: VANCOMYCIN 1 GM 250 ML IVPB ×3 (03:05→18:42)
[2018-07-24] MEDS: ACETAMINOPHEN 325 MG TAB PO ×3 (03:52→16:52)
[2018-07-24] MEDS: PIPER-TAZO 3.375 GM IV (PMX) 100 ML IVPB ×4 (05:30→23:24)
[2018-07-24 06:41] LABS: ADD MAN DIFF? NO
[2018-07-24 06:47] LABS: BASOPHIL # 0.1 10^3/ul (0.0-0.1); BASOPHILS % 0.4 % (0.0-2.0); EOSINOPHILS # 0.4 10^3/ul (0.0-0.5); EOSINOPHILS % 2.2 % (0.0-7.0); HEMATOCRIT 31.7 % (42.0-52.0); HEMOGLOBIN 10.3 g/dl (14.0-18.0); LYMPHOCYTES # 1.4 10^3/ul (0.8-2.9); LYMPHOCYTES % 8.4 % (15.0-51.0); MEAN CORPUSCULAR HEMOGLOBIN 26.7 pg (29.0-33.0); MEAN CORPUSCULAR HGB CONC 32.5 g/dl (32.0-37.0); MEAN CORPUSCULAR VOLUME 82.1 fl (82.0-101.0); MEAN PLATELET VOLUME 9.8 fl (7.4-10.4); MONOCYTE # 0.7 10^3/ul (0.3-0.9); MONOCYTES % 4.2 % (0.0-11.0); NEUTROPHILS % 84.2 % (39.0-77.0); PLATELET COUNT 182 10^3/UL (140-415); RED BLOOD COUNT 3.86 10^6/ul (4.70-6.10)
[2018-07-24 06:47] LABS: WHITE BLOOD COUNT 16.6 10^3/ul (4.8-10.8)
[2018-07-24 07:17] LABS: HEMOGLOBIN A1C 5.9 % (0-5.9)
[2018-07-24 07:18] LABS: CHOL/HDL RATIO 6.1 RATIO; HDL CHOLESTEROL 16 mg/dl (28-63); LDL CHOLESTEROL,CALCULATED 67 mg/dl; TRIGLYCERIDES 82 mg/dl (0-149)
[2018-07-24 07:18] LABS: CHOLESTEROL 99 mg/dl (100-200)
[2018-07-24 07:20] LABS: ANION GAP 11 (5-13); BLOOD UREA NITROGEN 12 mg/dl (7-20); CALCIUM 8.2 mg/dl (8.4-10.2); CARBON DIOXIDE 20 mmol/L (21-31); CHLORIDE 104 mmol/L (97-110); CREATININE 0.99 mg/dl (0.61-1.24); Estimated GFR > 60 mL/min (>60); GLUCOSE 114 mg/dl (70-220); MAGNESIUM 1.7 mg/dl (1.7-2.5); PHOSPHORUS 2.9 mg/dl (2.5-4.9); POTASSIUM 3.8 mmol/L (3.5-5.1); SODIUM 135 mmol/L (135-144)
[2018-07-24] MEDS: HYDROCODONE/APAP (5/325) TAB PO (07:55)
[2018-07-24] MEDS: FAMOTIDINE 20 MG INJ IV (08:13)
[2018-07-24] MEDS: SOD CHLORIDE 0.9% 1,000 ML IV ×2 (09:00→10:17)
[2018-07-24] MEDS: SOD CHLORIDE 0.45% 1,000 ML IV (13:21)
[2018-07-24 13:33] LABS: LACTIC ACID 1.1 mmol/L (0.5-2.0)
[2018-07-24] MEDS: GUAIFENESIN 20 MG/ML 5ML CUP PO (16:14)
[2018-07-24 17:13] LABS: VANCOMYCIN,TROUGH 16.8 ug/ml (10.0-20.0)
[2018-07-24] MEDS: IBUPROFEN 600 MG TAB PO (19:31)
[2018-07-24] MEDS: HEPARIN 5,000 UNIT/1 ML VIAL SC (21:11)
[2018-07-25] MEDS: SOD CHLORIDE 0.45% 1,000 ML IV ×2 (00:21→14:17)
[2018-07-25] MEDS: VANCOMYCIN 1 GM 250 ML IVPB ×2 (03:11→10:45)
[2018-07-25] MEDS: PIPER-TAZO 3.375 GM IV (PMX) 100 ML IVPB ×2 (05:26→12:49)
[2018-07-25 06:21] LABS: ADD MAN DIFF? NO
[2018-07-25 06:24] LABS: BASOPHIL # 0.1 10^3/ul (0.0-0.1); BASOPHILS % 0.5 % (0.0-2.0); EOSINOPHILS # 1.1 10^3/ul (0.0-0.5); HEMATOCRIT 31.2 % (42.0-52.0); HEMOGLOBIN 9.7 g/dl (14.0-18.0); LYMPHOCYTES # 1.3 10^3/ul (0.8-2.9); LYMPHOCYTES % 8.6 % (15.0-51.0); MEAN CORPUSCULAR HEMOGLOBIN 26.4 pg (29.0-33.0); MEAN CORPUSCULAR HGB CONC 31.1 g/dl (32.0-37.0); MONOCYTE # 0.7 10^3/ul (0.3-0.9); MONOCYTES % 4.9 % (0.0-11.0); NEUTROPHIL # 11.8 10^3/ul (1.6-7.5); NEUTROPHILS % 78.3 % (39.0-77.0); PLATELET COUNT 150 10^3/UL (140-415); RED BLOOD COUNT 3.67 10^6/ul (4.70-6.10); RED CELL DISTRIBUTION WIDTH 15.1 % (11.5-14.5)
[2018-07-25 06:24] LABS: WHITE BLOOD COUNT 15.1 10^3/ul (4.8-10.8)
[2018-07-25 06:49] LABS: ANION GAP 9 (5-13); BLOOD UREA NITROGEN 17 mg/dl (7-20); CALCIUM 8.2 mg/dl (8.4-10.2); CARBON DIOXIDE 21 mmol/L (21-31); CHLORIDE 107 mmol/L (97-110); CREATININE 1.04 mg/dl (0.61-1.24); Estimated GFR > 60 mL/min (>60); GLUCOSE 114 mg/dl (70-220); POTASSIUM 3.7 mmol/L (3.5-5.1); SODIUM 137 mmol/L (135-144)
[2018-07-25] MEDS: FAMOTIDINE 20 MG INJ IV (08:19)
[2018-07-25] MEDS: HEPARIN 5,000 UNIT/1 ML VIAL SC ×2 (08:26→20:51)
[2018-07-25] MEDS: LORAZEPAM 2 MG INJ IV (12:32)
[2018-07-25 13:21] LABS: AADO2 Arterial 119.1 mmHg (7.0-24.0); Allen Test ACCEPTAB; Arterial Base Excess -3.5 mmol/L (-3.0-3); Arterial Blood Gas Oxygen Sat 96.7 mmHG (95.0-98.0); Arterial COHb 0 % (0.0-3.0); Arterial Fraction of Oxyhgb 96.5 % (93.0-99.0); Arterial HCO3 18.9 mmol/L (22.0-26.0); Arterial MetHb 0.2 % (0.0-1.5); Arterial pCO2 26.5 mmhg (35-45); MODE NASAL CANNULA; Site Left Radial
[2018-07-25 13:38] LABS: HIV 1&2 ANTIBODY NEGATIVE (NEGATIVE)
[2018-07-25] MEDS: AZITHROMYCIN 500MG/NS (PMX) 250 ML IVPB (18:45)
[2018-07-25] MEDS: morphine 2 MG INJ IV (20:35)
[2018-07-25] MEDS: GUAIFENESIN 20 MG/ML 5ML CUP PO (20:36)
[2018-07-25] MEDS: CEFEPIME 1GM/50 ML (PMX) 50 ML IVPB (20:37)
[2018-07-25] MEDS: ONDANSETRON 4 MG INJ IV (20:41)
[2018-07-25] MEDS: SOD CHLORIDE 0.9% 100 ML (23:40)
[2018-07-25] MEDS: IOHEXOL 100 ML (23:41)
[2018-07-26] MEDS: ACETAMINOPHEN 325 MG TAB PO ×2 (00:21→11:17)
[2018-07-26] MEDS: CEPASTAT LOZENGE MT ×2 (01:46→10:16)
[2018-07-26] MEDS: morphine 2 MG INJ IV ×3 (01:46→22:25)
[2018-07-26] MEDS: GUAIFENESIN 20 MG/ML 5ML CUP PO ×3 (01:46→22:25)
[2018-07-26] MEDS: SOD CHLORIDE 0.45% 1,000 ML IV ×2 (03:30→10:53)
[2018-07-26 06:45] LABS: ADD MAN DIFF? NO
[2018-07-26 06:48] LABS: BASOPHIL # 0.1 10^3/ul (0.0-0.1); BASOPHILS % 0.4 % (0.0-2.0); EOSINOPHILS % 7.5 % (0.0-7.0); HEMATOCRIT 30.5 % (42.0-52.0); HEMOGLOBIN 9.8 g/dl (14.0-18.0); LYMPHOCYTES # 1.4 10^3/ul (0.8-2.9); LYMPHOCYTES % 10.1 % (15.0-51.0); MEAN CORPUSCULAR HEMOGLOBIN 26.6 pg (29.0-33.0); MEAN CORPUSCULAR HGB CONC 32.1 g/dl (32.0-37.0); MEAN CORPUSCULAR VOLUME 82.7 fl (82.0-101.0); MEAN PLATELET VOLUME 9.9 fl (7.4-10.4); MONOCYTE # 0.8 10^3/ul (0.3-0.9); MONOCYTES % 5.5 % (0.0-11.0); NEUTROPHIL # 10.4 10^3/ul (1.6-7.5); NEUTROPHILS % 75.5 % (39.0-77.0); PLATELET COUNT 171 10^3/UL (140-415); RED BLOOD COUNT 3.69 10^6/ul (4.70-6.10); RED CELL DISTRIBUTION WIDTH 14.9 % (11.5-14.5)
[2018-07-26 06:48] LABS: WHITE BLOOD COUNT 13.7 10^3/ul (4.8-10.8)
[2018-07-26 07:08] LABS: ANION GAP 9 (5-13); BLOOD UREA NITROGEN 8 mg/dl (7-20); CALCIUM 8.4 mg/dl (8.4-10.2); CARBON DIOXIDE 20 mmol/L (21-31); CHLORIDE 105 mmol/L (97-110); CREATININE 0.75 mg/dl (0.61-1.24); Estimated GFR > 60 mL/min (>60); GLUCOSE 148 mg/dl (70-220); POTASSIUM 3.3 mmol/L (3.5-5.1); SODIUM 134 mmol/L (135-144)
[2018-07-26] MEDS: CEFEPIME 1GM/50 ML (PMX) 50 ML IVPB ×2 (08:08→22:24)
[2018-07-26] MEDS: FAMOTIDINE 20 MG TAB PO (08:10)
[2018-07-26] MEDS: HEPARIN 5,000 UNIT/1 ML VIAL SC ×2 (08:20→23:51)
[2018-07-26] MEDS: ALBUTEROL/IPRATROPIUM (NEB) 3 ML AMP HHN ×2 (09:39→14:14)
[2018-07-26] MEDS: IBUPROFEN 600 MG TAB PO (12:14)
[2018-07-26] MEDS: HYDROCODONE/APAP (5/325) TAB PO (12:15)
[2018-07-26] MEDS: AZITHROMYCIN 500MG/NS (PMX) 250 ML IVPB (17:24)
[2018-07-26] MEDS: ONDANSETRON 4 MG INJ IV (22:25)
[2018-07-27] MEDS: GUAIFENESIN 20 MG/ML 5ML CUP PO ×3 (03:45→22:55)
[2018-07-27] MEDS: SOD CHLORIDE 0.45% 1,000 ML IV ×2 (03:47→17:12)
[2018-07-27] MEDS: morphine 2 MG INJ IV ×3 (03:56→23:32)
[2018-07-27] MEDS: HYDROCODONE/APAP (5/325) TAB PO (04:15)
[2018-07-27 06:21] LABS: ADD MAN DIFF? NO
[2018-07-27 06:26] LABS: WHITE BLOOD COUNT 14.9 10^3/ul (4.8-10.8)
[2018-07-27 06:26] LABS: BASOPHIL # 0.1 10^3/ul (0.0-0.1); BASOPHILS % 0.4 % (0.0-2.0); EOSINOPHILS # 0.6 10^3/ul (0.0-0.5); EOSINOPHILS % 4.2 % (0.0-7.0); HEMATOCRIT 28.8 % (42.0-52.0); HEMOGLOBIN 9.1 g/dl (14.0-18.0); LYMPHOCYTES # 0.7 10^3/ul (0.8-2.9); LYMPHOCYTES % 4.8 % (15.0-51.0); MEAN CORPUSCULAR HEMOGLOBIN 26.6 pg (29.0-33.0); MEAN CORPUSCULAR HGB CONC 31.6 g/dl (32.0-37.0); MEAN CORPUSCULAR VOLUME 84.2 fl (82.0-101.0); MEAN PLATELET VOLUME 10.1 fl (7.4-10.4); MONOCYTE # 0.7 10^3/ul (0.3-0.9); MONOCYTES % 4.6 % (0.0-11.0); NEUTROPHIL # 12.6 10^3/ul (1.6-7.5); NEUTROPHILS % 84.7 % (39.0-77.0); PLATELET COUNT 164 10^3/UL (140-415); RED BLOOD COUNT 3.42 10^6/ul (4.70-6.10); RED CELL DISTRIBUTION WIDTH 14.8 % (11.5-14.5)
[2018-07-27 06:56] LABS: ANION GAP 10 (5-13); BLOOD UREA NITROGEN 11 mg/dl (7-20); CARBON DIOXIDE 20 mmol/L (21-31); CHLORIDE 101 mmol/L (97-110); CREATININE 0.91 mg/dl (0.61-1.24); Estimated GFR > 60 mL/min (>60); GLUCOSE 93 mg/dl (70-220); POTASSIUM 4.3 mmol/L (3.5-5.1); SODIUM 131 mmol/L (135-144)
[2018-07-27] MEDS: FAMOTIDINE 20 MG TAB PO (10:04)
[2018-07-27] MEDS: CEFEPIME 1GM/50 ML (PMX) 50 ML IVPB ×2 (10:04→21:30)
[2018-07-27] MEDS: HEPARIN 5,000 UNIT/1 ML VIAL SC (10:08)
[2018-07-27] MEDS ORDERED: CEPASTAT LOZENGE MT (11:30)
[2018-07-27] MEDS: CEPASTAT LOZENGE MT ×4 (13:38→22:56)
[2018-07-27] MEDS: AZITHROMYCIN 500MG/NS (PMX) 250 ML IVPB (17:12)
[2018-07-28] MEDS: ONDANSETRON 4 MG INJ IV (01:03)
[2018-07-28] MEDS: CEPASTAT LOZENGE MT ×8 (01:03→23:27)
[2018-07-28] MEDS: GUAIFENESIN 20 MG/ML 5ML CUP PO ×5 (03:37→21:13)
[2018-07-28] MEDS: morphine 2 MG INJ IV ×5 (03:41→21:15)
[2018-07-28 06:24] LABS: ADD MAN DIFF? NO
[2018-07-28 06:36] LABS: WHITE BLOOD COUNT 15.5 10^3/ul (4.8-10.8)
[2018-07-28 06:36] LABS: BASOPHIL # 0.1 10^3/ul (0.0-0.1); BASOPHILS % 0.5 % (0.0-2.0); EOSINOPHILS # 0.9 10^3/ul (0.0-0.5); EOSINOPHILS % 5.6 % (0.0-7.0); HEMATOCRIT 30.3 % (42.0-52.0); HEMOGLOBIN 9.7 g/dl (14.0-18.0); LYMPHOCYTES # 1.7 10^3/ul (0.8-2.9); LYMPHOCYTES % 10.9 % (15.0-51.0); MEAN CORPUSCULAR HEMOGLOBIN 26.6 pg (29.0-33.0); MEAN PLATELET VOLUME 9.8 fl (7.4-10.4); MONOCYTES % 6.2 % (0.0-11.0); NEUTROPHIL # 11.8 10^3/ul (1.6-7.5); NEUTROPHILS % 75.7 % (39.0-77.0); PLATELET COUNT 210 10^3/UL (140-415); RED BLOOD COUNT 3.65 10^6/ul (4.70-6.10); RED CELL DISTRIBUTION WIDTH 14.8 % (11.5-14.5)
[2018-07-28 06:50] LABS: ANION GAP 10 (5-13); BLOOD UREA NITROGEN 9 mg/dl (7-20); CALCIUM 8.5 mg/dl (8.4-10.2); CARBON DIOXIDE 23 mmol/L (21-31); CHLORIDE 99 mmol/L (97-110); CREATININE 0.82 mg/dl (0.61-1.24); Estimated GFR > 60 mL/min (>60); GLUCOSE 104 mg/dl (70-220); SODIUM 132 mmol/L (135-144)
[2018-07-28] MEDS: CEFEPIME 1GM/50 ML (PMX) 50 ML IVPB ×2 (08:43→21:13)
[2018-07-28] MEDS: FAMOTIDINE 20 MG TAB PO (08:43)
[2018-07-28] MEDS: SOD CHLORIDE 0.45% 1,000 ML IV ×2 (08:48→22:10)
[2018-07-28] MEDS: AZITHROMYCIN 500MG/NS (PMX) 250 ML IVPB (17:05)
[2018-07-29] MEDS ORDERED: VITAMIN A & D 5 GM OINT PACKET TOP (01:12)
[2018-07-29] MEDS: GUAIFENESIN 20 MG/ML 5ML CUP PO ×4 (01:30→22:33)
[2018-07-29] MEDS: morphine 2 MG INJ IV ×4 (01:30→22:33)
[2018-07-29] MEDS: CEPASTAT LOZENGE MT ×6 (01:30→22:33)
[2018-07-29] MEDS: SOD CHLORIDE 0.45% 1,000 ML IV (01:32)
[2018-07-29 06:21] LABS: ADD MAN DIFF? NO
[2018-07-29 06:41] LABS: BASOPHIL # 0.1 10^3/ul (0.0-0.1); BASOPHILS % 0.6 % (0.0-2.0); EOSINOPHILS # 1.1 10^3/ul (0.0-0.5); EOSINOPHILS % 8.1 % (0.0-7.0); HEMATOCRIT 29.1 % (42.0-52.0); HEMOGLOBIN 9.4 g/dl (14.0-18.0); LYMPHOCYTES # 1.9 10^3/ul (0.8-2.9); LYMPHOCYTES % 13.7 % (15.0-51.0); MEAN CORPUSCULAR HEMOGLOBIN 26.6 pg (29.0-33.0); MEAN CORPUSCULAR HGB CONC 32.3 g/dl (32.0-37.0); MEAN CORPUSCULAR VOLUME 82.4 fl (82.0-101.0); MEAN PLATELET VOLUME 9.7 fl (7.4-10.4); MONOCYTE # 0.9 10^3/ul (0.3-0.9); MONOCYTES % 6.4 % (0.0-11.0); NEUTROPHIL # 9.5 10^3/ul (1.6-7.5); NEUTROPHILS % 69.7 % (39.0-77.0); PLATELET COUNT 240 10^3/UL (140-415); RED BLOOD COUNT 3.53 10^6/ul (4.70-6.10)
[2018-07-29 06:41] LABS: WHITE BLOOD COUNT 13.7 10^3/ul (4.8-10.8)
[2018-07-29 06:59] LABS: ANION GAP 10 (5-13); BLOOD UREA NITROGEN 7 mg/dl (7-20); CALCIUM 8.3 mg/dl (8.4-10.2); CARBON DIOXIDE 24 mmol/L (21-31); CHLORIDE 98 mmol/L (97-110); CREATININE 0.81 mg/dl (0.61-1.24); Estimated GFR > 60 mL/min (>60); GLUCOSE 100 mg/dl (70-220); SODIUM 132 mmol/L (135-144)
[2018-07-29] MEDS: CEFEPIME 1GM/50 ML (PMX) 50 ML IVPB ×2 (08:37→21:04)
[2018-07-29] MEDS: FAMOTIDINE 20 MG TAB PO (08:37)
[2018-07-29] MEDS: AZITHROMYCIN 500MG/NS (PMX) 250 ML IVPB (19:48)
[2018-07-30] MEDS: GUAIFENESIN 20 MG/ML 5ML CUP PO ×3 (04:27→15:47)
[2018-07-30] MEDS: CEPASTAT LOZENGE MT ×4 (04:27→15:47)
[2018-07-30] MEDS: morphine 2 MG INJ IV ×4 (04:27→22:27)
[2018-07-30 06:25] LABS: ADD MAN DIFF? NO
[2018-07-30 06:36] LABS: BASOPHIL # 0.1 10^3/ul (0.0-0.1); BASOPHILS % 0.6 % (0.0-2.0); HEMATOCRIT 29.7 % (42.0-52.0); HEMOGLOBIN 9.3 g/dl (14.0-18.0); LYMPHOCYTES # 1.7 10^3/ul (0.8-2.9); LYMPHOCYTES % 15.3 % (15.0-51.0); MEAN CORPUSCULAR HEMOGLOBIN 26.6 pg (29.0-33.0); MEAN CORPUSCULAR HGB CONC 31.3 g/dl (32.0-37.0); MEAN CORPUSCULAR VOLUME 84.9 fl (82.0-101.0); MEAN PLATELET VOLUME 9.6 fl (7.4-10.4); MONOCYTE # 0.7 10^3/ul (0.3-0.9); NEUTROPHIL # 7.5 10^3/ul (1.6-7.5); NEUTROPHILS % 66.9 % (39.0-77.0); PLATELET COUNT 249 10^3/UL (140-415); RED CELL DISTRIBUTION WIDTH 14.9 % (11.5-14.5)
[2018-07-30 06:36] LABS: WHITE BLOOD COUNT 11.2 10^3/ul (4.8-10.8)
[2018-07-30 07:26] LABS: ANION GAP 7 (5-13); BLOOD UREA NITROGEN 9 mg/dl (7-20); CALCIUM 8.3 mg/dl (8.4-10.2); CARBON DIOXIDE 26 mmol/L (21-31); CHLORIDE 99 mmol/L (97-110); CREATININE 0.75 mg/dl (0.61-1.24); Estimated GFR > 60 mL/min (>60); GLUCOSE 103 mg/dl (70-220); POTASSIUM 3.9 mmol/L (3.5-5.1); SODIUM 132 mmol/L (135-144)
[2018-07-30] MEDS: CEFEPIME 1GM/50 ML (PMX) 50 ML IVPB ×2 (08:16→20:20)
[2018-07-30] MEDS: FAMOTIDINE 20 MG TAB PO (08:16)
[2018-07-30] MEDS: SOD CHLORIDE 0.9% 100 ML (14:52)
[2018-07-30] MEDS: IOHEXOL 350MG/ML 50 ML BTL (14:52)
[2018-07-30] MEDS: IOHEXOL 100 ML (14:52)
[2018-07-31] MEDS: LEVOFLOXACIN 750 MG TABLET PO (05:41)
[2018-07-31 06:20] LABS: SODIUM,URINE RANDOM 20 mmol/L (30-90)
[2018-07-31 07:02] LABS: ADD MAN DIFF? NO
[2018-07-31] MEDS: GUAIFENESIN 20 MG/ML 5ML CUP PO ×3 (07:03→20:19)
[2018-07-31] MEDS: morphine LIQ (10 MG/5 ML) CUP PO ×3 (07:04→20:20)
[2018-07-31 07:14] LABS: BASOPHIL # 0.1 10^3/ul (0.0-0.1); BASOPHILS % 0.6 % (0.0-2.0); EOSINOPHILS # 0.9 10^3/ul (0.0-0.5); EOSINOPHILS % 8.7 % (0.0-7.0); HEMATOCRIT 29.2 % (42.0-52.0); HEMOGLOBIN 9.3 g/dl (14.0-18.0); LYMPHOCYTES # 1.5 10^3/ul (0.8-2.9); MEAN CORPUSCULAR HEMOGLOBIN 26.2 pg (29.0-33.0); MEAN CORPUSCULAR HGB CONC 31.8 g/dl (32.0-37.0); MEAN CORPUSCULAR VOLUME 82.3 fl (82.0-101.0); MEAN PLATELET VOLUME 9.3 fl (7.4-10.4); MONOCYTE # 0.7 10^3/ul (0.3-0.9); MONOCYTES % 6.1 % (0.0-11.0); NEUTROPHIL # 7.5 10^3/ul (1.6-7.5); NEUTROPHILS % 68.7 % (39.0-77.0); PLATELET COUNT 272 10^3/UL (140-415); RED BLOOD COUNT 3.55 10^6/ul (4.70-6.10); RED CELL DISTRIBUTION WIDTH 15.1 % (11.5-14.5)
[2018-07-31 07:14] LABS: WHITE BLOOD COUNT 10.9 10^3/ul (4.8-10.8)
[2018-07-31 07:37] LABS: ANION GAP 8 (5-13); BLOOD UREA NITROGEN 9 mg/dl (7-20); CALCIUM 8.4 mg/dl (8.4-10.2); CARBON DIOXIDE 25 mmol/L (21-31); CHLORIDE 104 mmol/L (97-110); CREATININE 0.68 mg/dl (0.61-1.24); Estimated GFR > 60 mL/min (>60); GLUCOSE 103 mg/dl (70-220); SODIUM 137 mmol/L (135-144)
[2018-07-31] MEDS: CEFEPIME 1GM/50 ML (PMX) 50 ML IVPB ×2 (08:10→20:19)
[2018-07-31] MEDS: FAMOTIDINE 20 MG TAB PO (08:12)
[2018-07-31] MEDS ORDERED: LIDOCAINE 2% (SDV) 5 ML INJ (12:19)
[2018-07-31] MEDS ORDERED: ETOMIDATE 20 MG INJ (12:19)
[2018-07-31] MEDS: LEVALBUTEROL (NEB) 0.63 MG/3 ML AMP HHN (13:18)
[2018-07-31] MEDS: IPRATROPIUM (NEB) 0.5 MG/2.5 ML AMP HHN (13:18)
[2018-07-31] MEDS: CEPASTAT LOZENGE MT (20:24)
[2018-08-01] MEDS: CEPASTAT LOZENGE MT ×2 (05:29→09:06)
[2018-08-01] MEDS: LEVOFLOXACIN 750 MG TABLET PO (05:29)
[2018-08-01] MEDS: morphine LIQ (10 MG/5 ML) CUP PO ×3 (05:30→20:05)
[2018-08-01] MEDS: CEFEPIME 1GM/50 ML (PMX) 50 ML IVPB (09:01)
[2018-08-01 09:03] LABS: ADD MAN DIFF? NO
[2018-08-01] MEDS: FAMOTIDINE 20 MG TAB PO (09:03)
[2018-08-01 09:06] LABS: BASOPHIL # 0.1 10^3/ul (0.0-0.1); BASOPHILS % 0.5 % (0.0-2.0); EOSINOPHILS # 0.6 10^3/ul (0.0-0.5); EOSINOPHILS % 5.2 % (0.0-7.0); HEMATOCRIT 28.2 % (42.0-52.0); HEMOGLOBIN 9.1 g/dl (14.0-18.0); LYMPHOCYTES # 1.5 10^3/ul (0.8-2.9); LYMPHOCYTES % 12.4 % (15.0-51.0); MEAN CORPUSCULAR HEMOGLOBIN 26.4 pg (29.0-33.0); MEAN CORPUSCULAR HGB CONC 32.3 g/dl (32.0-37.0); MEAN CORPUSCULAR VOLUME 81.7 fl (82.0-101.0); MEAN PLATELET VOLUME 8.8 fl (7.4-10.4); MONOCYTE # 0.7 10^3/ul (0.3-0.9); MONOCYTES % 5.3 % (0.0-11.0); NEUTROPHIL # 9.2 10^3/ul (1.6-7.5); NEUTROPHILS % 74.9 % (39.0-77.0); PLATELET COUNT 256 10^3/UL (140-415); RED BLOOD COUNT 3.45 10^6/ul (4.70-6.10); RED CELL DISTRIBUTION WIDTH 15.4 % (11.5-14.5)
[2018-08-01 09:06] LABS: WHITE BLOOD COUNT 12.3 10^3/ul (4.8-10.8)
[2018-08-01] MEDS: HYDROCODONE/APAP (5/325) TAB PO (09:06)
[2018-08-01 09:27] LABS: ANION GAP 7 (5-13); BLOOD UREA NITROGEN 8 mg/dl (7-20); CALCIUM 8.4 mg/dl (8.4-10.2); CARBON DIOXIDE 25 mmol/L (21-31); CHLORIDE 99 mmol/L (97-110); CREATININE 0.66 mg/dl (0.61-1.24); Estimated GFR > 60 mL/min (>60); GLUCOSE 99 mg/dl (70-220); MAGNESIUM 1.5 mg/dl (1.7-2.5); PHOSPHORUS 3.8 mg/dl (2.5-4.9); POTASSIUM 3.7 mmol/L (3.5-5.1); SODIUM 131 mmol/L (135-144)
[2018-08-01] MEDS: LEVALBUTEROL (NEB) 0.63 MG/3 ML AMP HHN (09:44)
[2018-08-01] MEDS: CEFTRIAXONE 1 GM/50 ML (PMX) 50 ML IVPB (13:40)
[2018-08-01] MEDS: ALBUTEROL/IPRATROPIUM (NEB) 3 ML AMP HHN (19:19)
[2018-08-01] MEDS: GUAIFENESIN 20 MG/ML 5ML CUP PO (20:03)
[2018-08-02] MEDS: GUAIFENESIN 20 MG/ML 5ML CUP PO ×3 (00:19→14:22)
[2018-08-02] MEDS: morphine LIQ (10 MG/5 ML) CUP PO ×3 (00:21→17:50)
[2018-08-02] MEDS: LEVALBUTEROL (NEB) 0.63 MG/3 ML AMP HHN ×6 (01:00→21:00)
[2018-08-02] MEDS: LEVOFLOXACIN 750 MG TABLET PO (06:36)
[2018-08-02] MEDS: FAMOTIDINE 20 MG TAB PO (08:29)
[2018-08-02 09:54] LABS: ANION GAP 8 (5-13); BLOOD UREA NITROGEN 8 mg/dl (7-20); CALCIUM 8.7 mg/dl (8.4-10.2); CARBON DIOXIDE 28 mmol/L (21-31); CHLORIDE 102 mmol/L (97-110); CREATININE 0.72 mg/dl (0.61-1.24); Estimated GFR > 60 mL/min (>60); GLUCOSE 123 mg/dl (70-220); SODIUM 138 mmol/L (135-144)
[2018-08-02 13:04] LABS: AADO2 Arterial 47.9 mmHg (7.0-24.0); Allen Test ACCEPTAB; Arterial Base Excess 4.1 mmol/L (-3.0-3); Arterial Blood Gas Oxygen Sat 88.7 mmHG (95.0-98.0); Arterial COHb 0.2 % (0.0-3.0); Arterial Fraction of Oxyhgb 88.4 % (93.0-99.0); Arterial HCO3 27.9 mmol/L (22.0-26.0); Arterial MetHb 0.1 % (0.0-1.5); MODE ROOM AIR; Site Right Radial
[2018-08-02] MEDS: CEFTRIAXONE 1 GM/50 ML (PMX) 50 ML IVPB (14:13)
[2018-08-02] MEDS: ONDANSETRON 4 MG INJ IV (14:22)
[2018-08-03] MEDS: LEVALBUTEROL (NEB) 0.63 MG/3 ML AMP HHN ×6 (00:33→21:44)
[2018-08-03] MEDS: GUAIFENESIN 20 MG/ML 5ML CUP PO ×4 (01:12→21:02)
[2018-08-03] MEDS: morphine LIQ (10 MG/5 ML) CUP PO ×3 (01:12→19:44)
[2018-08-03 05:17] LABS: ADD MAN DIFF? NO
[2018-08-03 05:20] LABS: WHITE BLOOD COUNT 9.8 10^3/ul (4.8-10.8)
[2018-08-03 05:20] LABS: BASOPHIL # 0.1 10^3/ul (0.0-0.1); BASOPHILS % 0.6 % (0.0-2.0); EOSINOPHILS # 0.8 10^3/ul (0.0-0.5); EOSINOPHILS % 7.7 % (0.0-7.0); HEMATOCRIT 30.4 % (42.0-52.0); HEMOGLOBIN 9.5 g/dl (14.0-18.0); LYMPHOCYTES # 1.6 10^3/ul (0.8-2.9); LYMPHOCYTES % 16.5 % (15.0-51.0); MEAN CORPUSCULAR HGB CONC 31.3 g/dl (32.0-37.0); MEAN CORPUSCULAR VOLUME 86.4 fl (82.0-101.0); MEAN PLATELET VOLUME 8.9 fl (7.4-10.4); MONOCYTE # 0.4 10^3/ul (0.3-0.9); MONOCYTES % 4.5 % (0.0-11.0); NEUTROPHIL # 6.8 10^3/ul (1.6-7.5); NEUTROPHILS % 69.3 % (39.0-77.0); PLATELET COUNT 258 10^3/UL (140-415); RED BLOOD COUNT 3.52 10^6/ul (4.70-6.10); RED CELL DISTRIBUTION WIDTH 15.9 % (11.5-14.5)
[2018-08-03] MEDS: LEVOFLOXACIN 750 MG TABLET PO (05:49)
[2018-08-03 06:09] LABS: ANION GAP 8 (5-13); BLOOD UREA NITROGEN 11 mg/dl (7-20); CALCIUM 8.5 mg/dl (8.4-10.2); CARBON DIOXIDE 29 mmol/L (21-31); CHLORIDE 101 mmol/L (97-110); CREATININE 0.92 mg/dl (0.61-1.24); Estimated GFR > 60 mL/min (>60); GLUCOSE 98 mg/dl (70-220); MAGNESIUM 1.8 mg/dl (1.7-2.5); PHOSPHORUS 4.9 mg/dl (2.5-4.9); POTASSIUM 4.2 mmol/L (3.5-5.1); SODIUM 138 mmol/L (135-144)
[2018-08-03] MEDS: FAMOTIDINE 20 MG TAB PO (08:39)
[2018-08-03] MEDS: CEFTRIAXONE 1 GM/50 ML (PMX) 50 ML IVPB (13:53)
[2018-08-03] MEDS: VORICONAZOLE 200 MG TAB PO ×2 (15:07→21:02)
[2018-08-04] MEDS: GUAIFENESIN 20 MG/ML 5ML CUP PO ×4 (01:33→18:01)
[2018-08-04] MEDS: LEVALBUTEROL (NEB) 0.63 MG/3 ML AMP HHN ×6 (01:47→20:00)
[2018-08-04 05:57] LABS: ADD MAN DIFF? NO
[2018-08-04 06:06] LABS: BASOPHIL # 0.1 10^3/ul (0.0-0.1); BASOPHILS % 0.5 % (0.0-2.0); EOSINOPHILS # 0.7 10^3/ul (0.0-0.5); EOSINOPHILS % 7.4 % (0.0-7.0); HEMATOCRIT 31.7 % (42.0-52.0); HEMOGLOBIN 9.9 g/dl (14.0-18.0); LYMPHOCYTES # 1.4 10^3/ul (0.8-2.9); LYMPHOCYTES % 14.4 % (15.0-51.0); MEAN CORPUSCULAR HEMOGLOBIN 26.9 pg (29.0-33.0); MEAN CORPUSCULAR HGB CONC 31.2 g/dl (32.0-37.0); MEAN CORPUSCULAR VOLUME 86.1 fl (82.0-101.0); MEAN PLATELET VOLUME 9.1 fl (7.4-10.4); MONOCYTE # 0.5 10^3/ul (0.3-0.9); MONOCYTES % 4.8 % (0.0-11.0); NEUTROPHIL # 7.2 10^3/ul (1.6-7.5); NEUTROPHILS % 71.7 % (39.0-77.0); PLATELET COUNT 268 10^3/UL (140-415); RED BLOOD COUNT 3.68 10^6/ul (4.70-6.10); RED CELL DISTRIBUTION WIDTH 15.6 % (11.5-14.5)
[2018-08-04] MEDS: LEVOFLOXACIN 750 MG TABLET PO (06:15)
[2018-08-04] MEDS: morphine LIQ (10 MG/5 ML) CUP PO ×3 (06:15→18:02)
[2018-08-04 07:10] LABS: ANION GAP 9 (5-13); BLOOD UREA NITROGEN 13 mg/dl (7-20); CARBON DIOXIDE 30 mmol/L (21-31); CHLORIDE 101 mmol/L (97-110); CREATININE 0.83 mg/dl (0.61-1.24); Estimated GFR > 60 mL/min (>60); GLUCOSE 113 mg/dl (70-220); POTASSIUM 4.4 mmol/L (3.5-5.1); SODIUM 140 mmol/L (135-144)
[2018-08-04] MEDS: VORICONAZOLE 200 MG TAB PO ×2 (08:38→20:09)
[2018-08-04] MEDS: FAMOTIDINE 20 MG TAB PO (08:38)
[2018-08-04] MEDS: CEFTRIAXONE 1 GM/50 ML (PMX) 50 ML IVPB (12:33)
[2018-08-05] MEDS: morphine LIQ (10 MG/5 ML) CUP PO ×5 (00:10→23:40)
[2018-08-05] MEDS: GUAIFENESIN 20 MG/ML 5ML CUP PO ×5 (00:10→23:41)
[2018-08-05] MEDS: LEVALBUTEROL (NEB) 0.63 MG/3 ML AMP HHN ×6 (01:30→20:31)
[2018-08-05] MEDS: LEVOFLOXACIN 750 MG TABLET PO (06:07)
[2018-08-05 06:30] LABS: ADD MAN DIFF? NO
[2018-08-05 06:41] LABS: WHITE BLOOD COUNT 9.5 10^3/ul (4.8-10.8)
[2018-08-05 06:42] LABS: BASOPHIL # 0.1 10^3/ul (0.0-0.1); BASOPHILS % 0.7 % (0.0-2.0); EOSINOPHILS # 0.7 10^3/ul (0.0-0.5); EOSINOPHILS % 7.5 % (0.0-7.0); HEMATOCRIT 29.6 % (42.0-52.0); HEMOGLOBIN 9.4 g/dl (14.0-18.0); LYMPHOCYTES # 1.5 10^3/ul (0.8-2.9); LYMPHOCYTES % 15.5 % (15.0-51.0); MEAN CORPUSCULAR HEMOGLOBIN 26.9 pg (29.0-33.0); MEAN CORPUSCULAR HGB CONC 31.8 g/dl (32.0-37.0); MEAN CORPUSCULAR VOLUME 84.6 fl (82.0-101.0); MEAN PLATELET VOLUME 8.8 fl (7.4-10.4); MONOCYTE # 0.5 10^3/ul (0.3-0.9); MONOCYTES % 5.5 % (0.0-11.0); NEUTROPHIL # 6.7 10^3/ul (1.6-7.5); NEUTROPHILS % 69.9 % (39.0-77.0); PLATELET COUNT 256 10^3/UL (140-415); RED CELL DISTRIBUTION WIDTH 15.8 % (11.5-14.5)
[2018-08-05 07:42] LABS: ANION GAP 9 (5-13); BLOOD UREA NITROGEN 12 mg/dl (7-20); CALCIUM 8.8 mg/dl (8.4-10.2); CARBON DIOXIDE 29 mmol/L (21-31); CHLORIDE 100 mmol/L (97-110); CREATININE 0.85 mg/dl (0.61-1.24); Estimated GFR > 60 mL/min (>60); GLUCOSE 97 mg/dl (70-220); POTASSIUM 3.8 mmol/L (3.5-5.1); SODIUM 138 mmol/L (135-144)
[2018-08-05] MEDS: FAMOTIDINE 20 MG TAB PO (08:28)
[2018-08-05] MEDS: VORICONAZOLE 200 MG TAB PO ×2 (08:28→20:56)
[2018-08-05] MEDS: CEFTRIAXONE 1 GM/50 ML (PMX) 50 ML IVPB (13:24)
[2018-08-06] MEDS: LEVALBUTEROL (NEB) 0.63 MG/3 ML AMP HHN ×6 (00:45→21:52)
[2018-08-06] MEDS: GUAIFENESIN 20 MG/ML 5ML CUP PO ×4 (05:32→20:19)
[2018-08-06] MEDS: morphine LIQ (10 MG/5 ML) CUP PO ×4 (05:33→20:19)
[2018-08-06] MEDS: LEVOFLOXACIN 750 MG TABLET PO (05:35)
[2018-08-06 05:55] LABS: ADD MAN DIFF? NO
[2018-08-06 05:57] LABS: BASOPHIL # 0.1 10^3/ul (0.0-0.1); BASOPHILS % 0.9 % (0.0-2.0); EOSINOPHILS # 0.9 10^3/ul (0.0-0.5); EOSINOPHILS % 9.6 % (0.0-7.0); HEMATOCRIT 30.7 % (42.0-52.0); HEMOGLOBIN 9.8 g/dl (14.0-18.0); LYMPHOCYTES # 1.3 10^3/ul (0.8-2.9); LYMPHOCYTES % 14.8 % (15.0-51.0); MEAN CORPUSCULAR HEMOGLOBIN 27.1 pg (29.0-33.0); MEAN CORPUSCULAR HGB CONC 31.9 g/dl (32.0-37.0); MEAN CORPUSCULAR VOLUME 84.8 fl (82.0-101.0); MEAN PLATELET VOLUME 9.2 fl (7.4-10.4); MONOCYTE # 0.4 10^3/ul (0.3-0.9); MONOCYTES % 4.8 % (0.0-11.0); NEUTROPHIL # 6.2 10^3/ul (1.6-7.5); NEUTROPHILS % 69.1 % (39.0-77.0); PLATELET COUNT 282 10^3/UL (140-415); RED BLOOD COUNT 3.62 10^6/ul (4.70-6.10)
[2018-08-06 06:25] LABS: ANION GAP 9 (5-13); BLOOD UREA NITROGEN 13 mg/dl (7-20); CALCIUM 9.1 mg/dl (8.4-10.2); CARBON DIOXIDE 27 mmol/L (21-31); CHLORIDE 103 mmol/L (97-110); CREATININE 0.79 mg/dl (0.61-1.24); Estimated GFR > 60 mL/min (>60); GLUCOSE 97 mg/dl (70-220); POTASSIUM 4.3 mmol/L (3.5-5.1); SODIUM 139 mmol/L (135-144)
[2018-08-06] MEDS: FAMOTIDINE 20 MG TAB PO (08:42)
[2018-08-06] MEDS: VORICONAZOLE 200 MG TAB PO ×2 (08:42→20:18)
[2018-08-06] MEDS: CEFTRIAXONE 1 GM/50 ML (PMX) 50 ML IVPB (13:09)
[2018-08-06] MEDS: IBUPROFEN 600 MG TAB PO (20:18)
[2018-08-07] MEDS: GUAIFENESIN 20 MG/ML 5ML CUP PO ×3 (00:50→13:21)
[2018-08-07] MEDS: HYDROCODONE/APAP (5/325) TAB PO (00:50)
[2018-08-07] MEDS: LEVALBUTEROL (NEB) 0.63 MG/3 ML AMP HHN ×6 (01:29→20:29)
[2018-08-07 05:28] LABS: ADD MAN DIFF? NO
[2018-08-07 05:32] LABS: WHITE BLOOD COUNT 8.6 10^3/ul (4.8-10.8)
[2018-08-07 05:32] LABS: BASOPHIL # 0.1 10^3/ul (0.0-0.1); BASOPHILS % 0.9 % (0.0-2.0); EOSINOPHILS # 0.9 10^3/ul (0.0-0.5); EOSINOPHILS % 10.8 % (0.0-7.0); HEMOGLOBIN 9.2 g/dl (14.0-18.0); LYMPHOCYTES # 1.3 10^3/ul (0.8-2.9); LYMPHOCYTES % 14.7 % (15.0-51.0); MEAN CORPUSCULAR HEMOGLOBIN 26.8 pg (29.0-33.0); MEAN CORPUSCULAR HGB CONC 31.7 g/dl (32.0-37.0); MEAN CORPUSCULAR VOLUME 84.5 fl (82.0-101.0); MONOCYTE # 0.6 10^3/ul (0.3-0.9); MONOCYTES % 6.6 % (0.0-11.0); NEUTROPHIL # 5.7 10^3/ul (1.6-7.5); NEUTROPHILS % 66.1 % (39.0-77.0); PLATELET COUNT 260 10^3/UL (140-415); RED BLOOD COUNT 3.43 10^6/ul (4.70-6.10); RED CELL DISTRIBUTION WIDTH 15.6 % (11.5-14.5)
[2018-08-07] MEDS: IBUPROFEN 600 MG TAB PO (05:34)
[2018-08-07] MEDS: LEVOFLOXACIN 750 MG TABLET PO (05:34)
[2018-08-07 05:50] LABS: ANION GAP 8 (5-13); BLOOD UREA NITROGEN 13 mg/dl (7-20); CALCIUM 8.9 mg/dl (8.4-10.2); CARBON DIOXIDE 29 mmol/L (21-31); CHLORIDE 103 mmol/L (97-110); CREATININE 0.92 mg/dl (0.61-1.24); Estimated GFR > 60 mL/min (>60); GLUCOSE 97 mg/dl (70-220); POTASSIUM 3.7 mmol/L (3.5-5.1); SODIUM 140 mmol/L (135-144)
[2018-08-07] MEDS: FAMOTIDINE 20 MG TAB PO (09:08)
[2018-08-07] MEDS: VORICONAZOLE 200 MG TAB PO ×2 (09:08→20:20)
[2018-08-07] MEDS: CEFTRIAXONE 1 GM/50 ML (PMX) 50 ML IVPB (13:21)
[2018-08-07] MEDS: morphine LIQ (10 MG/5 ML) CUP PO (13:22)
[2018-08-07] MEDS: IOHEXOL 100 ML (17:52)
[2018-08-07] MEDS: SOD CHLORIDE 0.9% 100 ML (17:53)
[2018-08-07] MEDS: ONDANSETRON 4 MG INJ IV (20:18)
[2018-08-07 22:47] LABS: CRYPTOCOCCAL ANTIGEN - SOURCE SERUM
[2018-08-08] MEDS: GUAIFENESIN 20 MG/ML 5ML CUP PO ×4 (00:24→23:03)
[2018-08-08] MEDS: morphine LIQ (10 MG/5 ML) CUP PO ×4 (00:25→23:04)
[2018-08-08] MEDS: LEVALBUTEROL (NEB) 0.63 MG/3 ML AMP HHN ×6 (00:34→20:33)
[2018-08-08] MEDS: LEVOFLOXACIN 750 MG TABLET PO (05:45)
[2018-08-08] MEDS: FAMOTIDINE 20 MG TAB PO (09:03)
[2018-08-08] MEDS: VORICONAZOLE 200 MG TAB PO ×2 (09:03→21:22)
[2018-08-08] MEDS: CEFTRIAXONE 1 GM/50 ML (PMX) 50 ML IVPB (12:47)
[2018-08-08] MEDS ORDERED: CEPASTAT LOZENGE MT (16:30)
[2018-08-08] MEDS: CEPASTAT LOZENGE MT (18:18)
[2018-08-09] MEDS: LEVALBUTEROL (NEB) 0.63 MG/3 ML AMP HHN ×6 (01:05→20:56)
[2018-08-09] MEDS: morphine LIQ (10 MG/5 ML) CUP PO ×4 (04:53→22:17)
[2018-08-09] MEDS: GUAIFENESIN 20 MG/ML 5ML CUP PO ×3 (04:53→20:04)
[2018-08-09] MEDS: LEVOFLOXACIN 750 MG TABLET PO (05:09)
[2018-08-09] MEDS: FAMOTIDINE 20 MG TAB PO (08:55)
[2018-08-09] MEDS: VORICONAZOLE 200 MG TAB PO ×2 (08:55→20:04)
[2018-08-09] MEDS: CEFTRIAXONE 1 GM/50 ML (PMX) 50 ML IVPB (13:21)
[2018-08-09] MEDS: CEPASTAT LOZENGE MT ×2 (13:24→22:16)
[2018-08-09] MEDS: DOCUSATE SODIUM 100 MG CAP PO (20:04)
[2018-08-09] MEDS: HYDROCODONE/APAP (5/325) TAB PO (20:05)
[2018-08-10] MEDS: LEVALBUTEROL (NEB) 0.63 MG/3 ML AMP HHN ×6 (00:01→20:37)
[2018-08-10] MEDS: GUAIFENESIN 20 MG/ML 5ML CUP PO ×4 (03:54→21:07)
[2018-08-10] MEDS: morphine LIQ (10 MG/5 ML) CUP PO ×4 (03:54→21:05)
[2018-08-10] MEDS: LEVOFLOXACIN 750 MG TABLET PO (05:35)
[2018-08-10 06:00] LABS: ADD MAN DIFF? NO
[2018-08-10 06:09] LABS: BASOPHIL # 0.1 10^3/ul (0.0-0.1); BASOPHILS % 1.2 % (0.0-2.0); EOSINOPHILS # 0.8 10^3/ul (0.0-0.5); EOSINOPHILS % 11.2 % (0.0-7.0); HEMATOCRIT 31.1 % (42.0-52.0); HEMOGLOBIN 9.8 g/dl (14.0-18.0); LYMPHOCYTES # 1.4 10^3/ul (0.8-2.9); LYMPHOCYTES % 18.5 % (15.0-51.0); MEAN CORPUSCULAR HEMOGLOBIN 26.7 pg (29.0-33.0); MEAN CORPUSCULAR HGB CONC 31.5 g/dl (32.0-37.0); MEAN CORPUSCULAR VOLUME 84.7 fl (82.0-101.0); MEAN PLATELET VOLUME 9.2 fl (7.4-10.4); MONOCYTE # 0.5 10^3/ul (0.3-0.9); MONOCYTES % 6.2 % (0.0-11.0); NEUTROPHIL # 4.5 10^3/ul (1.6-7.5); NEUTROPHILS % 62.4 % (39.0-77.0); PLATELET COUNT 286 10^3/UL (140-415); RED BLOOD COUNT 3.67 10^6/ul (4.70-6.10); RED CELL DISTRIBUTION WIDTH 15.9 % (11.5-14.5)
[2018-08-10 06:09] LABS: WHITE BLOOD COUNT 7.3 10^3/ul (4.8-10.8)
[2018-08-10 06:53] LABS: PHOSPHORUS 5.2 mg/dl (2.5-4.9)
[2018-08-10 06:53] LABS: ANION GAP 9 (5-13); BLOOD UREA NITROGEN 11 mg/dl (7-20); CALCIUM 9.1 mg/dl (8.4-10.2); CARBON DIOXIDE 28 mmol/L (21-31); CHLORIDE 102 mmol/L (97-110); CREATININE 0.76 mg/dl (0.61-1.24); Estimated GFR > 60 mL/min (>60); GLUCOSE 92 mg/dl (70-220); MAGNESIUM 1.8 mg/dl (1.7-2.5); SODIUM 139 mmol/L (135-144)
[2018-08-10] MEDS: FAMOTIDINE 20 MG TAB PO (09:10)
[2018-08-10] MEDS: VORICONAZOLE 200 MG TAB PO ×2 (09:10→21:04)
[2018-08-10] MEDS: MAGNESIUM HYDROXIDE 30ML CUP PO (09:14)
[2018-08-10] MEDS: CEFTRIAXONE 1 GM/50 ML (PMX) 50 ML IVPB (13:35)
[2018-08-11] MEDS: LEVALBUTEROL (NEB) 0.63 MG/3 ML AMP HHN ×6 (02:08→20:26)
[2018-08-11] MEDS: GUAIFENESIN 20 MG/ML 5ML CUP PO ×3 (02:45→21:15)
[2018-08-11] MEDS: morphine LIQ (10 MG/5 ML) CUP PO ×4 (02:46→21:16)
[2018-08-11] MEDS: LEVOFLOXACIN 750 MG TABLET PO (05:51)
[2018-08-11] MEDS: ONDANSETRON 4 MG INJ IV (08:15)
[2018-08-11] MEDS: FAMOTIDINE 20 MG TAB PO (08:18)
[2018-08-11] MEDS: VORICONAZOLE 200 MG TAB PO ×2 (08:30→21:11)
[2018-08-11] MEDS: CEFTRIAXONE 1 GM/50 ML (PMX) 50 ML IVPB (13:24)
[2018-08-11] MEDS: DOCUSATE SODIUM 100 MG CAP PO (13:34)
[2018-08-11] MEDS: HYDROCODONE/APAP (5/325) TAB PO (13:34)
[2018-08-12] MEDS: DOCUSATE SODIUM 100 MG CAP PO (01:33)
[2018-08-12] MEDS: morphine LIQ (10 MG/5 ML) CUP PO ×3 (01:33→15:13)
[2018-08-12] MEDS: LEVALBUTEROL (NEB) 0.63 MG/3 ML AMP HHN ×6 (01:47→21:25)
[2018-08-12] MEDS: LEVOFLOXACIN 750 MG TABLET PO (05:37)
[2018-08-12] MEDS: GUAIFENESIN 20 MG/ML 5ML CUP PO ×3 (05:38→20:54)
[2018-08-12] MEDS: MAGNESIUM HYDROXIDE 30ML CUP PO (05:41)
[2018-08-12] MEDS: VORICONAZOLE 200 MG TAB PO ×2 (09:05→20:51)
[2018-08-12] MEDS: FAMOTIDINE 20 MG TAB PO (09:05)
[2018-08-12] MEDS: CEFTRIAXONE 1 GM/50 ML (PMX) 50 ML IVPB (13:05)
[2018-08-12] MEDS: HYDROCODONE/APAP (5/325) TAB PO (20:53)
[2018-08-13] MEDS: LEVALBUTEROL (NEB) 0.63 MG/3 ML AMP HHN ×6 (00:37→21:23)
[2018-08-13] MEDS: GUAIFENESIN 20 MG/ML 5ML CUP PO (02:02)
[2018-08-13] MEDS: HYDROCODONE/APAP (5/325) TAB PO (02:02)
[2018-08-13] MEDS: LEVOFLOXACIN 750 MG TABLET PO (05:50)
[2018-08-13] MEDS: morphine LIQ (10 MG/5 ML) CUP PO ×2 (05:51→13:02)
[2018-08-13] MEDS: VORICONAZOLE 200 MG TAB PO ×2 (08:23→21:46)
[2018-08-13] MEDS: FAMOTIDINE 20 MG TAB PO (08:23)
[2018-08-13] MEDS: ONDANSETRON 4 MG INJ IV ×2 (09:05→19:24)
[2018-08-13] MEDS: CEFTRIAXONE 1 GM/50 ML (PMX) 50 ML IVPB (13:48)
[2018-08-13] MEDS ORDERED: HEPARIN 1000 UNITS/ML 10 ML INJ IV (14:30)
[2018-08-13 15:33] LABS: INR 1.34; PROTIME 16.7 Sec (11.9-14.9); PT RATIO 1.3
[2018-08-13 15:34] LABS: PARTIAL THROMBOPLASTIN TIME 46.8 Sec (23.0-35.0)
[2018-08-13] MEDS: HEPARIN 1000 UNITS/ML 10 ML INJ IV (15:56)
[2018-08-13] MEDS: HEPARIN 25000 UNITS/250 ML 250 ML IV (15:59)
[2018-08-14] MEDS: LEVALBUTEROL (NEB) 0.63 MG/3 ML AMP HHN ×6 (01:38→21:26)
[2018-08-14 03:44] LABS: PARTIAL THROMBOPLASTIN TIME 59.2 Sec (23.0-35.0)
[2018-08-14] MEDS: GUAIFENESIN 20 MG/ML 5ML CUP PO (03:58)
[2018-08-14] MEDS: morphine LIQ (10 MG/5 ML) CUP PO (06:17)
[2018-08-14] MEDS: HEPARIN 25000 UNITS/250 ML 250 ML IV (09:12)
[2018-08-14] MEDS: FAMOTIDINE 20 MG TAB PO (09:24)
[2018-08-14] MEDS: VORICONAZOLE 200 MG TAB PO ×2 (09:24→22:14)
[2018-08-14] MEDS: HYDROCODONE/APAP (5/325) TAB PO (09:25)
[2018-08-14 10:42] LABS: PARTIAL THROMBOPLASTIN TIME 65.9 Sec (23.0-35.0)
[2018-08-14] MEDS: CEFTRIAXONE 1 GM/50 ML (PMX) 50 ML IVPB (13:43)
[2018-08-14] MEDS: APIXABAN 5 MG TABLET PO (22:15)
[2018-08-15] MEDS: LEVALBUTEROL (NEB) 0.63 MG/3 ML AMP HHN ×6 (01:00→20:25)
[2018-08-15] MEDS: GUAIFENESIN 20 MG/ML 5ML CUP PO (09:13)
[2018-08-15] MEDS: morphine LIQ (10 MG/5 ML) CUP PO ×2 (09:13→23:24)
[2018-08-15] MEDS: VORICONAZOLE 200 MG TAB PO (09:13)
[2018-08-15] MEDS: FAMOTIDINE 20 MG TAB PO (09:13)
[2018-08-15] MEDS: APIXABAN 5 MG TABLET PO ×2 (09:58→20:50)
[2018-08-15 11:28] LABS: ADD MAN DIFF? NO
[2018-08-15 11:30] LABS: WHITE BLOOD COUNT 6.2 10^3/ul (4.8-10.8)
[2018-08-15 11:30] LABS: BASOPHIL # 0.1 10^3/ul (0.0-0.1); BASOPHILS % 1.1 % (0.0-2.0); EOSINOPHILS # 0.6 10^3/ul (0.0-0.5); EOSINOPHILS % 9.6 % (0.0-7.0); HEMATOCRIT 31.1 % (42.0-52.0); HEMOGLOBIN 9.8 g/dl (14.0-18.0); LYMPHOCYTES # 1.3 10^3/ul (0.8-2.9); LYMPHOCYTES % 21.1 % (15.0-51.0); MEAN CORPUSCULAR HEMOGLOBIN 26.8 pg (29.0-33.0); MEAN CORPUSCULAR HGB CONC 31.5 g/dl (32.0-37.0); MEAN PLATELET VOLUME 9.3 fl (7.4-10.4); MONOCYTE # 0.4 10^3/ul (0.3-0.9); NEUTROPHIL # 3.8 10^3/ul (1.6-7.5); NEUTROPHILS % 60.9 % (39.0-77.0); PLATELET COUNT 227 10^3/UL (140-415); RED BLOOD COUNT 3.66 10^6/ul (4.70-6.10); RED CELL DISTRIBUTION WIDTH 15.5 % (11.5-14.5)
[2018-08-15 11:58] LABS: ANION GAP 7 (5-13); BLOOD UREA NITROGEN 13 mg/dl (7-20); CARBON DIOXIDE 28 mmol/L (21-31); CHLORIDE 108 mmol/L (97-110); CREATININE 0.94 mg/dl (0.61-1.24); Estimated GFR > 60 mL/min (>60); GLUCOSE 95 mg/dl (70-220); MAGNESIUM 1.9 mg/dl (1.7-2.5); PHOSPHORUS 4.3 mg/dl (2.5-4.9); POTASSIUM 3.9 mmol/L (3.5-5.1); SODIUM 143 mmol/L (135-144)
[2018-08-16] MEDS: LEVALBUTEROL (NEB) 0.63 MG/3 ML AMP HHN ×5 (00:45→17:43)
[2018-08-16] MEDS ORDERED: FLUCONAZOLE 100 MG TAB PO (09:00)
[2018-08-16] MEDS: FAMOTIDINE 20 MG TAB PO (09:05)
[2018-08-16] MEDS: APIXABAN 5 MG TABLET PO (09:06)
[2018-08-16] MEDS: LEVOFLOXACIN 500 MG TAB PO (11:19)
[2018-08-16] MEDS: DOXYCYCLINE 100 MG TAB PO (11:19)
[2018-08-17] MEDS ORDERED: BENAZEPRIL 10 MG TAB PO (09:00)
== END 2018-08-16 18:40 | disposition home or self-care (01) | DRG 853 ==
LOC: TEL 07-26 19:27 → E/R 15:19 → 2NE 08-01 18:49 → TEL 18:14
PROC: B24BZZ4 Ultrasonography of Heart with Aorta, Transesophageal (ICD-10-PCS; 2018-07-31 12:00)
PROC: 06H03DZ Insertion of Intraluminal Device into Inferior Vena Cava, Percutaneous Approach (ICD-10-PCS; principal; 2018-07-31 12:05)
DX: A41.9 Sepsis, unspecified organism (principal); J18.9 Pneumonia, unspecified organism; I26.90 Septic pulmonary embolism without acute cor pulmonale; R65.20 Severe sepsis without septic shock; D64.9 Anemia, unspecified; R09.02 Hypoxemia; I25.10 Atherosclerotic heart disease of native coronary artery without angina pectoris; Z95.0 Presence of cardiac pacemaker; Z59.0 Homelessness; Z86.711 Personal history of pulmonary embolism; Z95.2 Presence of prosthetic heart valve
CPT/HCPCS: 36415; 36600; 71045; 71046; 71250; 71275; 75825; 75940; 80048; 80053; 80061; 80202; 80307; 81001; 82540; 82803; 83036; 83605; 83735; 84100; 84155; 84300; 84439; 84443; 84484; 85025; 85610; 85730; 86606; 86635; 86641; 86703; 87040; 87070; 87081; 87086; 93005; 93306; 93312; 93970; 94640; 96365; 96367; 99285-25

== ENCOUNTER 2018-10-07 10:07 | Inpatient (IN) | payer OTHER ==
[2018-10-07] MEDS: SOD CHLORIDE 0.9% 1,000 ML IV ×2 (10:53→12:00)
[2018-10-07 10:58] LABS: ADD MAN DIFF? NO
[2018-10-07 10:59] LABS: WHITE BLOOD COUNT 8.8 10^3/ul (4.8-10.8)
[2018-10-07 10:59] LABS: BASOPHILS % 0.3 % (0.0-2.0); EOSINOPHILS % 0.5 % (0.0-7.0); HEMATOCRIT 35.6 % (42.0-52.0); HEMOGLOBIN 11.5 g/dl (14.0-18.0); LYMPHOCYTES # 0.7 10^3/ul (0.8-2.9); LYMPHOCYTES % 7.6 % (15.0-51.0); MEAN CORPUSCULAR HEMOGLOBIN 26.7 pg (29.0-33.0); MEAN CORPUSCULAR HGB CONC 32.3 g/dl (32.0-37.0); MEAN CORPUSCULAR VOLUME 82.6 fl (82.0-101.0); MEAN PLATELET VOLUME 9.2 fl (7.4-10.4); MONOCYTE # 0.2 10^3/ul (0.3-0.9); MONOCYTES % 1.9 % (0.0-11.0); NEUTROPHIL # 7.8 10^3/ul (1.6-7.5); NEUTROPHILS % 89.1 % (39.0-77.0); PLATELET COUNT 228 10^3/UL (140-415); RED BLOOD COUNT 4.31 10^6/ul (4.70-6.10); RED CELL DISTRIBUTION WIDTH 15.3 % (11.5-14.5)
[2018-10-07] MEDS: LORAZEPAM 2 MG INJ IV ×2 (11:13→12:01)
[2018-10-07 11:17] LABS: ANION GAP 13 (5-13); BLOOD UREA NITROGEN 20 mg/dl (7-20); CARBON DIOXIDE 18 mmol/L (21-31); CHLORIDE 105 mmol/L (97-110); CREATININE 1.16 mg/dl (0.61-1.24); Estimated GFR > 60 mL/min (>60); GLUCOSE 93 mg/dl (70-220); POTASSIUM 4.3 mmol/L (3.5-5.1); SODIUM 136 mmol/L (135-144)
[2018-10-07 11:29] LABS: TROPONIN-I 0.081 ng/ml (0.000-0.120)
[2018-10-07] MEDS: CEFTRIAXONE 1 GM/50 ML (PMX) 50 ML IVPB (12:00)
[2018-10-07] MEDS: HYDROmorphONE 0.5 MG/0.5 ML SYG IV (12:01)
[2018-10-07] MEDS: CEFEPIME 1GM/50 ML (PMX) 50 ML IVPB (13:21)
[2018-10-07] MEDS: SODIUM CHLORIDE 0.9% 1L BAG IV* (13:21)
[2018-10-07] MEDS: VANCOMYCIN 1 GM (PMX) 250 ML IVPB (13:39)
[2018-10-07] MEDS: LEVALBUTEROL (NEB) 1.25 MG/0.5 ML AMP INH (13:57)
[2018-10-07] MEDS: IBUPROFEN 800 MG TAB PO (14:16)
[2018-10-07] MEDS ORDERED: NACL 0.9% 3 ML SYG IV (15:00)
[2018-10-07] MEDS ORDERED: VANCOMYCIN IV PER PHARMACY XX (15:00)
[2018-10-07] MEDS ORDERED: SOD CHLORIDE 0.9% 1,000 ML IV (15:13)
[2018-10-07] MEDS: OXYCODONE/ACETAMINOPHEN (5/325) TAB PO (15:27)
[2018-10-07] MEDS ORDERED: ONDANSETRON 4 MG INJ IV (15:30)
[2018-10-07] MEDS ORDERED: ACETAMINOPHEN 325 MG TAB PO (15:30)
[2018-10-07 20:10] LABS: TROPONIN-I 0.416 ng/ml (0.000-0.120)
[2018-10-07] MEDS: SOD CHLORIDE 0.9% 100 ML (20:48)
[2018-10-07] MEDS: IOHEXOL 300MG/ML 150 ML BTL (20:48)
[2018-10-07] MEDS: MEROPENEM 1 GM/50ML(PMX) 50 ML IVPB (20:49)
[2018-10-07] MEDS ORDERED: MEROPENEM 1 GM/50ML(PMX) 50 ML IVPB (22:00)
[2018-10-07] MEDS: VANCOMYCIN HCL 1.5 GM in SOD CHLORIDE 0.9% 250 ML IVPB (22:04)
[2018-10-08] MEDS: MEROPENEM 1 GM/50ML(PMX) 50 ML IVPB (04:39)
[2018-10-08 05:52] LABS: WHITE BLOOD COUNT 17.1 10^3/ul (4.8-10.8)
[2018-10-08 05:52] LABS: ABNORMAL IP MESSAGE 1; HEMATOCRIT 39.6 % (42.0-52.0); HEMOGLOBIN 11.9 g/dl (14.0-18.0); MEAN CORPUSCULAR HEMOGLOBIN 26.4 pg (29.0-33.0); MEAN CORPUSCULAR HGB CONC 30.1 g/dl (32.0-37.0); MEAN PLATELET VOLUME 10.3 fl (7.4-10.4); PLATELET COUNT 199 10^3/UL (140-415); POSITIVE DIFF @See below; RED CELL DISTRIBUTION WIDTH 16.2 % (11.5-14.5)
[2018-10-08 05:57] LABS: HEMOGLOBIN A1C 5.7 % (0-5.9)
[2018-10-08 06:10] LABS: ALANINE AMINOTRANSFERASE 36 IU/L (13-69); ALBUMIN 3.5 g/dl (3.3-4.9); ALBUMIN/GLOBULIN RATIO 0.64; ALKALINE PHOSPHATASE 175 IU/L (42-121); ANION GAP 17 (5-13); ASPARTATE AMINO TRANSFERASE 136 IU/L (15-46); BILIRUBIN,INDIRECT 0.7 mg/dl (0-1.1); BILIRUBIN,TOTAL 0.9 mg/dl (0.2-1.3); BLOOD UREA NITROGEN 32 mg/dl (7-20); CALCIUM 8.3 mg/dl (8.4-10.2); CARBON DIOXIDE 14 mmol/L (21-31); CHLORIDE 107 mmol/L (97-110); CREATININE 2.48 mg/dl (0.61-1.24); Estimated GFR 31 mL/min (>60); GLUCOSE 89 mg/dl (70-220); POTASSIUM 4.8 mmol/L (3.5-5.1); SODIUM 138 mmol/L (135-144); TOTAL PROTEIN 8.9 g/dl (6.1-8.1)
[2018-10-08 06:13] LABS: ADD MAN DIFF? YES
[2018-10-08 06:15] LABS: TROPONIN-I 0.225 ng/ml (0.000-0.120)
[2018-10-08 07:43] LABS: AADO2 Arterial 170.6 mmHg (7.0-24.0); Arterial Base Excess -12.3 mmol/L (-3.0-3); Arterial Blood Gas Oxygen Sat 93.9 mmHG (95.0-98.0); Arterial COHb 0.9 % (0.0-3.0); Arterial Fraction of Oxyhgb 92.8 % (93.0-99.0); Arterial HCO3 12.4 mmol/L (22.0-26.0); Arterial MetHb 0.3 % (0.0-1.5); Arterial pCO2 26.1 mmhg (35-45); MODE NASAL CANNULA; Site LB
[2018-10-08] MEDS: OXYCODONE/ACETAMINOPHEN (5/325) TAB PO (09:22)
[2018-10-08 09:34] LABS: ANISOCYTOSIS 1+ (0-0); BAND NEUTROPHILS % (M) 59 % (0-4); BURR CELLS 1+ (0-0); HYPOCHROMASIA 1+ (0-0); LYMPHOCYTES #M 0.3 10^3/ul (0.8-2.9); LYMPHOCYTES % (M) 2 % (15-51); METAMYELOCYTES #M 0.5 10^3/ul (0.0-0.0); METAMYELOCYTES %M 3 % (0-0); MICROCYTOSIS 1+ (0-0); MONOCYTE #M 0.1 10^3/ul (0.3-0.9); MONOCYTES % (M) 1 % (0-11); PLATELET ESTIMATE NORMAL; POIKILOCYTOSIS 1+ (0-0); POLYCHROMASIA 1+ (0-0); SEG NEUT #M 7.7 10^3/ul (1.6-7.5); SEGMENTED NEUTROPHILS (M) % 35 % (39-77); SMUDGE%M 6 % (0-0)
[2018-10-08] MEDS: SOD CHLORIDE 0.9% 500 ML IV (13:20)
[2018-10-08 14:27] LABS: ADD UMIC YES; UR ASCORBIC ACID NEGATIVE (NEGATIVE); UR BILIRUBIN (Dip) NEGATIVE (NEGATIVE); UR BLOOD (Dip) 3+ mg/dL (NEGATIVE); UR CLARITY CLOUDY (CLEAR); UR COLOR AMBER (YELLOW); UR GLUCOSE (Dip) NEGATIVE (NEGATIVE); UR KETONES (Dip) NEGATIVE (NEGATIVE); UR LEUKOCYTE ESTERASE (Dip) TRACE Leu/ul (NEGATIVE); UR MUCUS FEW /HPF (NONE SEEN); UR NITRITE (Dip) NEGATIVE (NEGATIVE); UR RBC 34 /HPF (0-5); UR SPECIFIC GRAVITY (Dip) 1.041 (1.003-1.030); UR SQUAMOUS EPITHELIAL CELL FEW /HPF (FEW); UR TOTAL PROTEIN (Dip) 3+ mg/dl (NEGATIVE); UR UROBILINOGEN (Dip) 1+ mg/dL (NEGATIVE); UR WBC 13 /HPF (0-5)
[2018-10-08] MEDS: IOHEXOL 14.3 MG(I)/ML (ADULT) BTL PO (14:32)
[2018-10-08] MEDS: morphine 2 MG INJ IV ×3 (14:33→22:26)
[2018-10-08 14:51] LABS: SODIUM,URINE RANDOM 17 mmol/L (30-90)
[2018-10-08 14:55] LABS: CREATININE,URINE RANDOM 170.74 mg/dl (20-370)
[2018-10-08 16:46] LABS: CREATININE,URINE RANDOM 170.31 mg/dl (20-370)
[2018-10-08] MEDS: PIPER-TAZO 3.375 GM IV (PMX) 100 ML IVPB ×2 (18:34→23:37)
[2018-10-08] MEDS: ENOXAPARIN 40 MG/0.4 ML SYG SC (18:40)
[2018-10-08] MEDS: SOD CHLORIDE 0.9% 1,000 ML IV (20:07)
[2018-10-08] MEDS: VANCOMYCIN HCL 1.5 GM in SOD CHLORIDE 0.9% 250 ML IVPB (22:25)
[2018-10-09 05:11] LABS: ADD MAN DIFF? NO
[2018-10-09 05:18] LABS: WHITE BLOOD COUNT 13.9 10^3/ul (4.8-10.8)
[2018-10-09 05:18] LABS: ABNORMAL IP MESSAGE 1; BASOPHIL # 0.1 10^3/ul (0.0-0.1); BASOPHILS % 0.6 % (0.0-2.0); EOSINOPHILS # 1.1 10^3/ul (0.0-0.5); EOSINOPHILS % 7.6 % (0.0-7.0); HEMATOCRIT 34.6 % (42.0-52.0); HEMOGLOBIN 10.8 g/dl (14.0-18.0); LYMPHOCYTES % 7.1 % (15.0-51.0); MEAN CORPUSCULAR HEMOGLOBIN 26.6 pg (29.0-33.0); MEAN CORPUSCULAR HGB CONC 31.2 g/dl (32.0-37.0); MEAN CORPUSCULAR VOLUME 85.2 fl (82.0-101.0); MEAN PLATELET VOLUME 10.5 fl (7.4-10.4); MONOCYTE # 0.5 10^3/ul (0.3-0.9); MONOCYTES % 3.3 % (0.0-11.0); NEUTROPHIL # 10.4 10^3/ul (1.6-7.5); NEUTROPHILS % 74.6 % (39.0-77.0); PLATELET COUNT 165 10^3/UL (140-415); POSITIVE DIFF @See below; RED BLOOD COUNT 4.06 10^6/ul (4.70-6.10); RED CELL DISTRIBUTION WIDTH 15.9 % (11.5-14.5)
[2018-10-09 05:49] LABS: ANION GAP 12 (5-13); BLOOD UREA NITROGEN 51 mg/dl (7-20); CALCIUM 7.6 mg/dl (8.4-10.2); CARBON DIOXIDE 17 mmol/L (21-31); CHLORIDE 105 mmol/L (97-110); CREATININE 3.04 mg/dl (0.61-1.24); Estimated GFR 24 mL/min (>60); GLUCOSE 87 mg/dl (70-220); POTASSIUM 5.1 mmol/L (3.5-5.1); SODIUM 134 mmol/L (135-144)
[2018-10-09 05:51] LABS: MAGNESIUM 1.7 mg/dl (1.7-2.5)
[2018-10-09 05:51] LABS: PHOSPHORUS 6.2 mg/dl (2.5-4.9)
[2018-10-09] MEDS: PIPER-TAZO 3.375 GM IV (PMX) 100 ML IVPB ×3 (06:24→21:03)
[2018-10-09] MEDS: morphine 2 MG INJ IV ×4 (06:25→21:55)
[2018-10-09] MEDS: FUROSEMIDE 40 MG INJ IV (08:30)
[2018-10-09] MEDS: ENOXAPARIN 40 MG/0.4 ML SYG SC (08:40)
[2018-10-09 13:01] LABS: PROCALCITONIN 251.64 ng/mL (0.00-0.10)
[2018-10-09 16:47] LABS: CREATININE, RANDOM URINE 167 mg/dL (20-320); MICROALBUMIN 199.4 mg/dL; MICROALBUMIN/CREATININE RATIO 1194 (<30)
[2018-10-10 05:42] LABS: ADD MAN DIFF? NO
[2018-10-10 05:47] LABS: BASOPHIL # 0.1 10^3/ul (0.0-0.1); BASOPHILS % 0.5 % (0.0-2.0); EOSINOPHILS # 0.6 10^3/ul (0.0-0.5); EOSINOPHILS % 4.8 % (0.0-7.0); HEMATOCRIT 32.6 % (42.0-52.0); HEMOGLOBIN 10.3 g/dl (14.0-18.0); LYMPHOCYTES # 1.1 10^3/ul (0.8-2.9); MEAN CORPUSCULAR HEMOGLOBIN 26.3 pg (29.0-33.0); MEAN CORPUSCULAR HGB CONC 31.6 g/dl (32.0-37.0); MEAN CORPUSCULAR VOLUME 83.2 fl (82.0-101.0); MEAN PLATELET VOLUME 10.1 fl (7.4-10.4); MONOCYTE # 0.5 10^3/ul (0.3-0.9); NEUTROPHIL # 10.2 10^3/ul (1.6-7.5); NEUTROPHILS % 80.6 % (39.0-77.0); NUCLEATED RED BLOOD CELLS% 0.2 /100WBC (0.0-0.0); PLATELET COUNT 160 10^3/UL (140-415); POSITIVE DIFF @See below; RED BLOOD COUNT 3.92 10^6/ul (4.70-6.10); RED CELL DISTRIBUTION WIDTH 15.8 % (11.5-14.5)
[2018-10-10 05:47] LABS: WHITE BLOOD COUNT 12.6 10^3/ul (4.8-10.8)
[2018-10-10] MEDS: PIPER-TAZO 3.375 GM IV (PMX) 100 ML IVPB ×3 (05:58→21:56)
[2018-10-10 06:27] LABS: ANION GAP 11 (5-13); BLOOD UREA NITROGEN 51 mg/dl (7-20); CALCIUM 8.5 mg/dl (8.4-10.2); CARBON DIOXIDE 18 mmol/L (21-31); CHLORIDE 105 mmol/L (97-110); CREATININE 2.59 mg/dl (0.61-1.24); Estimated GFR 29 mL/min (>60); GLUCOSE 97 mg/dl (70-220); PHOSPHORUS 5.1 mg/dl (2.5-4.9); POTASSIUM 4.3 mmol/L (3.5-5.1); SODIUM 134 mmol/L (135-144)
[2018-10-10] MEDS: morphine 2 MG INJ IV ×2 (06:29→12:00)
[2018-10-10] MEDS: FUROSEMIDE 20 MG TAB PO (08:30)
[2018-10-10] MEDS: ENOXAPARIN 40 MG/0.4 ML SYG SC (08:34)
[2018-10-10 09:49] LABS: ANISOCYTOSIS 1+ (0-0); BAND NEUTROPHILS #M 2.6 10^3/ul (0.0-0.6); BAND NEUTROPHILS % (M) 21 % (0-4); BASOPHIL #M 0.1 10^3/ul (0.0-0.0); BASOPHILS % (M) 1 % (0-2); EOSINOPHILS % (M) 1 % (0-7); ERYTHROBLAST% (NRBC) (M) 1 % (0-0); GIANT THROMBO% (M) 1 % (0-0); LYMPHOCYTES #M 0.8 10^3/ul (0.8-2.9); LYMPHOCYTES % (M) 7 % (15-51); MONOCYTE #M 0.3 10^3/ul (0.3-0.9); MONOCYTES % (M) 3 % (0-11); PLATELET ESTIMATE NORMAL; POIKILOCYTOSIS 1+ (0-0); POLYCHROMASIA 1+ (0-0); SEG NEUT #M 8.8 10^3/ul (1.6-7.5); SEGMENTED NEUTROPHILS (M) % 67 % (39-77); SMUDGE%M 3 % (0-0)
[2018-10-10] MEDS: OXYCODONE/ACETAMINOPHEN (5/325) TAB PO (10:05)
[2018-10-10] MEDS: ALBUTEROL/IPRATROPIUM (NEB) 3 ML AMP HHN (12:03)
[2018-10-11] MEDS: morphine 2 MG INJ IV ×5 (01:04→23:09)
[2018-10-11] MEDS: PIPER-TAZO 3.375 GM IV (PMX) 100 ML IVPB (05:00)
[2018-10-11 05:43] LABS: ADD MAN DIFF? NO
[2018-10-11 05:47] LABS: BASOPHIL # 0.1 10^3/ul (0.0-0.1); BASOPHILS % 0.6 % (0.0-2.0); EOSINOPHILS # 0.6 10^3/ul (0.0-0.5); EOSINOPHILS % 4.9 % (0.0-7.0); HEMATOCRIT 34.8 % (42.0-52.0); HEMOGLOBIN 10.9 g/dl (14.0-18.0); LYMPHOCYTES # 1.4 10^3/ul (0.8-2.9); LYMPHOCYTES % 11.3 % (15.0-51.0); MEAN CORPUSCULAR HGB CONC 31.3 g/dl (32.0-37.0); MEAN CORPUSCULAR VOLUME 82.9 fl (82.0-101.0); MEAN PLATELET VOLUME 10.4 fl (7.4-10.4); MONOCYTE # 0.8 10^3/ul (0.3-0.9); MONOCYTES % 6.6 % (0.0-11.0); NEUTROPHIL # 9.5 10^3/ul (1.6-7.5); NEUTROPHILS % 75.6 % (39.0-77.0); NUCLEATED RED BLOOD CELLS # 0.1 10^3/ul (0.0-0.0); NUCLEATED RED BLOOD CELLS% 0.6 /100WBC (0.0-0.0); PLATELET COUNT 151 10^3/UL (140-415); RED CELL DISTRIBUTION WIDTH 15.7 % (11.5-14.5)
[2018-10-11 05:47] LABS: WHITE BLOOD COUNT 12.6 10^3/ul (4.8-10.8)
[2018-10-11 06:15] LABS: VANCOMYCIN,RANDOM 10.2 ug/ml
[2018-10-11 06:29] LABS: ALANINE AMINOTRANSFERASE 63 IU/L (13-69); ALBUMIN 3.2 g/dl (3.3-4.9); ALBUMIN/GLOBULIN RATIO 0.58; ALKALINE PHOSPHATASE 185 IU/L (42-121); ANION GAP 9 (5-13); ASPARTATE AMINO TRANSFERASE 101 IU/L (15-46); BILIRUBIN,INDIRECT 0.7 mg/dl (0-1.1); BILIRUBIN,TOTAL 1.7 mg/dl (0.2-1.3); BLOOD UREA NITROGEN 42 mg/dl (7-20); CALCIUM 8.5 mg/dl (8.4-10.2); CARBON DIOXIDE 20 mmol/L (21-31); CHLORIDE 109 mmol/L (97-110); CREATININE 1.96 mg/dl (0.61-1.24); Estimated GFR 40 mL/min (>60); GLUCOSE 113 mg/dl (70-220); SODIUM 138 mmol/L (135-144); TOTAL PROTEIN 8.7 g/dl (6.1-8.1)
[2018-10-11 06:49] LABS: POTASSIUM 4.2 mmol/L (3.5-5.1)
[2018-10-11 07:15] LABS: PHOSPHORUS 4.4 mg/dl (2.5-4.9)
[2018-10-11 07:15] LABS: MAGNESIUM 2.1 mg/dl (1.7-2.5)
[2018-10-11] MEDS: FUROSEMIDE 20 MG TAB PO (08:05)
[2018-10-11] MEDS: LEVOFLOXACIN 500 MG TAB PO (08:05)
[2018-10-11] MEDS: ENOXAPARIN 40 MG/0.4 ML SYG SC (08:19)
[2018-10-11] MEDS: ALBUTEROL/IPRATROPIUM (NEB) 3 ML AMP HHN (10:57)
[2018-10-11] MEDS: VANCOMYCIN HCL 1.5 GM in SOD CHLORIDE 0.9% 250 ML IVPB (12:20)
[2018-10-12] MEDS: morphine 2 MG INJ IV ×4 (03:27→21:45)
[2018-10-12] MEDS: LEVOFLOXACIN 500 MG TAB PO (05:28)
[2018-10-12 06:15] LABS: ADD MAN DIFF? NO
[2018-10-12 06:21] LABS: WHITE BLOOD COUNT 11.3 10^3/ul (4.8-10.8)
[2018-10-12 06:21] LABS: BASOPHIL # 0.1 10^3/ul (0.0-0.1); BASOPHILS % 0.6 % (0.0-2.0); EOSINOPHILS # 0.5 10^3/ul (0.0-0.5); EOSINOPHILS % 4.1 % (0.0-7.0); HEMATOCRIT 34.1 % (42.0-52.0); HEMOGLOBIN 10.9 g/dl (14.0-18.0); LYMPHOCYTES # 1.5 10^3/ul (0.8-2.9); LYMPHOCYTES % 13.6 % (15.0-51.0); MEAN CORPUSCULAR HEMOGLOBIN 26.3 pg (29.0-33.0); MEAN CORPUSCULAR VOLUME 82.2 fl (82.0-101.0); MEAN PLATELET VOLUME 10.4 fl (7.4-10.4); MONOCYTE # 1.2 10^3/ul (0.3-0.9); MONOCYTES % 10.3 % (0.0-11.0); NEUTROPHIL # 7.6 10^3/ul (1.6-7.5); NEUTROPHILS % 67.2 % (39.0-77.0); NUCLEATED RED BLOOD CELLS # 0.2 10^3/ul (0.0-0.0); NUCLEATED RED BLOOD CELLS% 1.4 /100WBC (0.0-0.0); PLATELET COUNT 158 10^3/UL (140-415); RED BLOOD COUNT 4.15 10^6/ul (4.70-6.10); RED CELL DISTRIBUTION WIDTH 15.7 % (11.5-14.5)
[2018-10-12 06:50] LABS: ANION GAP 7 (5-13); BLOOD UREA NITROGEN 31 mg/dl (7-20); CALCIUM 8.5 mg/dl (8.4-10.2); CARBON DIOXIDE 22 mmol/L (21-31); CHLORIDE 104 mmol/L (97-110); CREATININE 1.46 mg/dl (0.61-1.24); Estimated GFR 57 mL/min (>60); GLUCOSE 104 mg/dl (70-220); SODIUM 133 mmol/L (135-144)
[2018-10-12] MEDS: FUROSEMIDE 20 MG TAB PO (09:05)
[2018-10-12] MEDS: VANCOMYCIN HCL 1.5 GM in SOD CHLORIDE 0.9% 250 ML IVPB (12:44)
[2018-10-13] MEDS: LEVOFLOXACIN 500 MG TAB PO (06:02)
[2018-10-13] MEDS: morphine 2 MG INJ IV ×2 (08:31→17:28)
[2018-10-13] MEDS: FUROSEMIDE 20 MG TAB PO (08:36)
[2018-10-13] MEDS: CEFTRIAXONE 2 GM/50 ML (PMX) 50 ML IVPB (12:18)
[2018-10-13] MEDS: ALBUTEROL/IPRATROPIUM (NEB) 3 ML AMP HHN (22:32)
[2018-10-13] MEDS: ACETYLCYSTEINE 20% 4 ML VIAL NEB (22:32)
[2018-10-13] MEDS: GUAIFENESIN/DM 5ML CUP PO (23:58)
[2018-10-14] MEDS: ALBUTEROL/IPRATROPIUM (NEB) 3 ML AMP HHN ×5 (01:40→19:44)
[2018-10-14] MEDS: ACETYLCYSTEINE 20% 4 ML VIAL NEB ×5 (01:40→19:44)
[2018-10-14] MEDS: morphine 2 MG INJ IV ×3 (02:06→19:01)
[2018-10-14] MEDS: LEVOFLOXACIN 500 MG TAB PO (06:05)
[2018-10-14 06:13] LABS: WHITE BLOOD COUNT 16.6 10^3/ul (4.8-10.8)
[2018-10-14 06:13] LABS: ABNORMAL IP MESSAGE 1; HEMATOCRIT 35.9 % (42.0-52.0); HEMOGLOBIN 11.7 g/dl (14.0-18.0); MEAN CORPUSCULAR HEMOGLOBIN 26.3 pg (29.0-33.0); MEAN CORPUSCULAR HGB CONC 32.6 g/dl (32.0-37.0); MEAN CORPUSCULAR VOLUME 80.7 fl (82.0-101.0); MEAN PLATELET VOLUME 9.8 fl (7.4-10.4); NUCLEATED RED BLOOD CELLS% 0.2 /100WBC (0.0-0.0); PLATELET COUNT 218 10^3/UL (140-415); POSITIVE DIFF @See below; RED BLOOD COUNT 4.45 10^6/ul (4.70-6.10); RED CELL DISTRIBUTION WIDTH 15.4 % (11.5-14.5)
[2018-10-14] MEDS ORDERED: ALBUTEROL/IPRATROPIUM (NEB) 3 ML AMP HHN ×2 (06:30→08:00)
[2018-10-14 06:31] LABS: ADD MAN DIFF? YES
[2018-10-14 06:34] LABS: ANION GAP 10 (5-13); BLOOD UREA NITROGEN 19 mg/dl (7-20); CALCIUM 8.4 mg/dl (8.4-10.2); CARBON DIOXIDE 21 mmol/L (21-31); CHLORIDE 103 mmol/L (97-110); CREATININE 1.08 mg/dl (0.61-1.24); Estimated GFR > 60 mL/min (>60); GLUCOSE 93 mg/dl (70-220); MAGNESIUM 1.6 mg/dl (1.7-2.5); POTASSIUM 4.1 mmol/L (3.5-5.1); SODIUM 134 mmol/L (135-144)
[2018-10-14 07:09] LABS: PROCALCITONIN 2.45 ng/mL (0.00-0.10)
[2018-10-14] MEDS: FUROSEMIDE 20 MG TAB PO (08:30)
[2018-10-14] MEDS: GUAIFENESIN/DM 5ML CUP PO ×3 (10:39→22:15)
[2018-10-14] MEDS: MAGNESIUM SULFATE 2 GM/50 ML 50 ML IVPB (10:40)
[2018-10-14 10:53] LABS: ANISOCYTOSIS 1+ (0-0); BAND NEUTROPHILS #M 2.8 10^3/ul (0.0-0.6); BAND NEUTROPHILS % (M) 17 % (0-4); EOSINOPHILS % (M) 2 % (0-7); ERYTHROBLAST% (NRBC) (M) 1 % (0-0); LYMPHOCYTES #M 1.1 10^3/ul (0.8-2.9); LYMPHOCYTES % (M) 7 % (15-51); METAMYELOCYTES #M 0.3 10^3/ul (0.0-0.0); METAMYELOCYTES %M 2 % (0-0); MONOCYTE #M 0.9 10^3/ul (0.3-0.9); MONOCYTES % (M) 6 % (0-11); MYELOCYTES #M 0.1 10^3/ul (0.0-0.0); MYELOCYTES % (M) 1 % (0-0); PLATELET ESTIMATE NORMAL; POIKILOCYTOSIS 1+ (0-0); POLYCHROMASIA 1+ (0-0); REACTIVE LYMPHOCYTES #M 0.1 10^3/ul (0.0-0.0); REACTIVE LYMPHOCYTES% (M) 1 % (0-0); SEG NEUT #M 11.1 10^3/ul (1.6-7.5); SEGMENTED NEUTROPHILS (M) % 64 % (39-77); SMUDGE%M 6 % (0-0)
[2018-10-14 12:18] LABS: MYCOPLASMA PNEUMONIAE AB (IGG) 4.07
[2018-10-14] MEDS: CEFTRIAXONE 2 GM/50 ML (PMX) 50 ML IVPB (12:53)
[2018-10-14] MEDS: OXYCODONE/ACETAMINOPHEN (5/325) TAB PO (22:15)
[2018-10-15] MEDS: ALBUTEROL/IPRATROPIUM (NEB) 3 ML AMP HHN ×3 (01:23→14:42)
[2018-10-15] MEDS: ACETYLCYSTEINE 20% 4 ML VIAL NEB ×3 (01:23→14:00)
[2018-10-15 05:38] LABS: ADD MAN DIFF? NO
[2018-10-15] MEDS: LEVOFLOXACIN 500 MG TAB PO (05:48)
[2018-10-15] MEDS: morphine 2 MG INJ IV ×3 (05:48→20:05)
[2018-10-15 05:57] LABS: WHITE BLOOD COUNT 16.6 10^3/ul (4.8-10.8)
[2018-10-15 05:57] LABS: BASOPHIL # 0.1 10^3/ul (0.0-0.1); BASOPHILS % 0.5 % (0.0-2.0); EOSINOPHILS # 0.2 10^3/ul (0.0-0.5); EOSINOPHILS % 1.1 % (0.0-7.0); HEMATOCRIT 34.8 % (42.0-52.0); HEMOGLOBIN 11.2 g/dl (14.0-18.0); MEAN CORPUSCULAR HGB CONC 32.2 g/dl (32.0-37.0); MEAN CORPUSCULAR VOLUME 80.9 fl (82.0-101.0); MEAN PLATELET VOLUME 9.5 fl (7.4-10.4); MONOCYTE # 0.9 10^3/ul (0.3-0.9); MONOCYTES % 5.5 % (0.0-11.0); NEUTROPHILS % 78.4 % (39.0-77.0); NUCLEATED RED BLOOD CELLS% 0.1 /100WBC (0.0-0.0); PLATELET COUNT 231 10^3/UL (140-415); RED CELL DISTRIBUTION WIDTH 15.7 % (11.5-14.5)
[2018-10-15 06:23] LABS: PHOSPHORUS 5.4 mg/dl (2.5-4.9)
[2018-10-15] MEDS: FUROSEMIDE 20 MG TAB PO (09:04)
[2018-10-15 10:07] LABS: ANION GAP 8 (5-13); BLOOD UREA NITROGEN 19 mg/dl (7-20); CALCIUM 8.5 mg/dl (8.4-10.2); CARBON DIOXIDE 23 mmol/L (21-31); CHLORIDE 105 mmol/L (97-110); CREATININE 1.14 mg/dl (0.61-1.24); Estimated GFR > 60 mL/min (>60); GLUCOSE 91 mg/dl (70-220); POTASSIUM 4.6 mmol/L (3.5-5.1); SODIUM 136 mmol/L (135-144)
[2018-10-15] MEDS: CEFTRIAXONE 2 GM/50 ML (PMX) 50 ML IVPB (11:05)
[2018-10-15] MEDS: GUAIFENESIN/DM 5ML CUP PO ×2 (14:21→21:54)
[2018-10-15] MEDS: CEPASTAT LOZENGE MT ×2 (14:21→21:54)
[2018-10-15] MEDS: OXYCODONE/ACETAMINOPHEN (5/325) TAB PO (23:24)
[2018-10-16] MEDS: morphine 2 MG INJ IV ×5 (01:45→21:17)
[2018-10-16 06:40] LABS: ADD MAN DIFF? NO
[2018-10-16] MEDS: LEVOFLOXACIN 500 MG TAB PO (06:47)
[2018-10-16 06:49] LABS: BASOPHIL # 0.1 10^3/ul (0.0-0.1); BASOPHILS % 0.5 % (0.0-2.0); EOSINOPHILS # 0.2 10^3/ul (0.0-0.5); HEMOGLOBIN 11.3 g/dl (14.0-18.0); LYMPHOCYTES # 2.2 10^3/ul (0.8-2.9); LYMPHOCYTES % 11.5 % (15.0-51.0); MEAN CORPUSCULAR HEMOGLOBIN 26.5 pg (29.0-33.0); MEAN CORPUSCULAR HGB CONC 32.3 g/dl (32.0-37.0); MEAN CORPUSCULAR VOLUME 82.2 fl (82.0-101.0); MEAN PLATELET VOLUME 9.3 fl (7.4-10.4); MONOCYTE # 0.9 10^3/ul (0.3-0.9); MONOCYTES % 4.7 % (0.0-11.0); NEUTROPHIL # 15.3 10^3/ul (1.6-7.5); NEUTROPHILS % 80.6 % (39.0-77.0); PLATELET COUNT 265 10^3/UL (140-415); RED BLOOD COUNT 4.26 10^6/ul (4.70-6.10); RED CELL DISTRIBUTION WIDTH 15.5 % (11.5-14.5)
[2018-10-16 07:15] LABS: ALANINE AMINOTRANSFERASE 30 IU/L (13-69); ALBUMIN 3.1 g/dl (3.3-4.9); ALBUMIN/GLOBULIN RATIO 0.55; ALKALINE PHOSPHATASE 262 IU/L (42-121); ANION GAP 7 (5-13); ASPARTATE AMINO TRANSFERASE 42 IU/L (15-46); BILIRUBIN,INDIRECT 0.8 mg/dl (0-1.1); BILIRUBIN,TOTAL 0.8 mg/dl (0.2-1.3); BLOOD UREA NITROGEN 17 mg/dl (7-20); CALCIUM 8.4 mg/dl (8.4-10.2); CARBON DIOXIDE 26 mmol/L (21-31); CHLORIDE 102 mmol/L (97-110); CREATININE 1.18 mg/dl (0.61-1.24); Estimated GFR > 60 mL/min (>60); GLUCOSE 100 mg/dl (70-220); POTASSIUM 4.7 mmol/L (3.5-5.1); SODIUM 135 mmol/L (135-144); TOTAL PROTEIN 8.7 g/dl (6.1-8.1)
[2018-10-16] MEDS: FUROSEMIDE 20 MG TAB PO (08:42)
[2018-10-16] MEDS: GUAIFENESIN/DM 5ML CUP PO ×3 (10:59→21:17)
[2018-10-16] MEDS: CEPASTAT LOZENGE MT ×3 (10:59→19:40)
[2018-10-16] MEDS: CEFTRIAXONE 2 GM/50 ML (PMX) 50 ML IVPB (11:01)
[2018-10-16 12:07] LABS: PROCALCITONIN 1.07 ng/mL (0.00-0.10)
[2018-10-16 16:07] LABS: ADD UMIC YES; UR ASCORBIC ACID NEGATIVE (NEGATIVE); UR BACTERIA FEW /HPF (NONE SEEN); UR BILIRUBIN (Dip) NEGATIVE (NEGATIVE); UR BLOOD (Dip) 3+ mg/dL (NEGATIVE); UR CLARITY CLEAR (CLEAR); UR COLOR YELLOW (YELLOW); UR GLUCOSE (Dip) NEGATIVE (NEGATIVE); UR KETONES (Dip) NEGATIVE (NEGATIVE); UR LEUKOCYTE ESTERASE (Dip) TRACE Leu/ul (NEGATIVE); UR NITRITE (Dip) NEGATIVE (NEGATIVE); UR RBC 25 /HPF (0-5); UR SPECIFIC GRAVITY (Dip) 1.006 (1.003-1.030); UR TOTAL PROTEIN (Dip) NEGATIVE (NEGATIVE); UR UROBILINOGEN (Dip) NEGATIVE (NEGATIVE); UR WBC 9 /HPF (0-5)
[2018-10-16] MEDS: ALBUTEROL/IPRATROPIUM (NEB) 3 ML AMP HHN ×2 (16:19→21:49)
[2018-10-16 17:10] LABS: HEMATOCRIT 33.5 % (42.0-52.0); HEMOGLOBIN 10.6 g/dl (14.0-18.0)
[2018-10-17] MEDS: ALBUTEROL/IPRATROPIUM (NEB) 3 ML AMP HHN ×6 (00:33→20:04)
[2018-10-17] MEDS: GUAIFENESIN/DM 5ML CUP PO ×5 (02:16→17:34)
[2018-10-17] MEDS: CEPASTAT LOZENGE MT ×5 (02:20→23:38)
[2018-10-17] MEDS: morphine 2 MG INJ IV ×5 (03:04→21:29)
[2018-10-17 06:08] LABS: ADD MAN DIFF? NO
[2018-10-17 06:12] LABS: BASOPHIL # 0.1 10^3/ul (0.0-0.1); BASOPHILS % 0.4 % (0.0-2.0); EOSINOPHILS # 0.1 10^3/ul (0.0-0.5); EOSINOPHILS % 0.4 % (0.0-7.0); HEMATOCRIT 33.2 % (42.0-52.0); HEMOGLOBIN 10.7 g/dl (14.0-18.0); LYMPHOCYTES # 1.7 10^3/ul (0.8-2.9); LYMPHOCYTES % 8.6 % (15.0-51.0); MEAN CORPUSCULAR HEMOGLOBIN 26.2 pg (29.0-33.0); MEAN CORPUSCULAR HGB CONC 32.2 g/dl (32.0-37.0); MEAN CORPUSCULAR VOLUME 81.4 fl (82.0-101.0); MEAN PLATELET VOLUME 9.3 fl (7.4-10.4); MONOCYTE # 0.9 10^3/ul (0.3-0.9); MONOCYTES % 4.6 % (0.0-11.0); NEUTROPHIL # 17.1 10^3/ul (1.6-7.5); NEUTROPHILS % 84.8 % (39.0-77.0); PLATELET COUNT 268 10^3/UL (140-415); RED BLOOD COUNT 4.08 10^6/ul (4.70-6.10); RED CELL DISTRIBUTION WIDTH 15.1 % (11.5-14.5)
[2018-10-17 06:12] LABS: WHITE BLOOD COUNT 20.1 10^3/ul (4.8-10.8)
[2018-10-17 06:38] LABS: ANION GAP 8 (5-13); BLOOD UREA NITROGEN 24 mg/dl (7-20); CALCIUM 8.2 mg/dl (8.4-10.2); CARBON DIOXIDE 27 mmol/L (21-31); CHLORIDE 99 mmol/L (97-110); CREATININE 1.18 mg/dl (0.61-1.24); Estimated GFR > 60 mL/min (>60); GLUCOSE 113 mg/dl (70-220); POTASSIUM 4.6 mmol/L (3.5-5.1); SODIUM 134 mmol/L (135-144)
[2018-10-17] MEDS: FUROSEMIDE 20 MG TAB PO (10:00)
[2018-10-17] MEDS: FLUCONAZOLE 200 MG TAB PO (11:48)
[2018-10-17] MEDS: CEFTRIAXONE 2 GM/50 ML (PMX) 50 ML IVPB (11:48)
[2018-10-17] MEDS: SENNA TAB PO (21:29)
[2018-10-17 22:08] LABS: RAPID PLASMA REAGIN NONREACTIVE (NR)
[2018-10-18] MEDS: ALBUTEROL/IPRATROPIUM (NEB) 3 ML AMP HHN ×6 (00:55→20:44)
[2018-10-18] MEDS: GUAIFENESIN/DM 5ML CUP PO ×4 (02:19→20:27)
[2018-10-18] MEDS: morphine 2 MG INJ IV ×4 (02:19→20:27)
[2018-10-18 05:37] LABS: ADD MAN DIFF? NO
[2018-10-18 05:44] LABS: WHITE BLOOD COUNT 12.9 10^3/ul (4.8-10.8)
[2018-10-18 05:44] LABS: BASOPHIL # 0.1 10^3/ul (0.0-0.1); BASOPHILS % 0.6 % (0.0-2.0); EOSINOPHILS # 0.4 10^3/ul (0.0-0.5); EOSINOPHILS % 3.2 % (0.0-7.0); HEMATOCRIT 29.8 % (42.0-52.0); HEMOGLOBIN 9.5 g/dl (14.0-18.0); LYMPHOCYTES # 1.9 10^3/ul (0.8-2.9); MEAN CORPUSCULAR HEMOGLOBIN 26.2 pg (29.0-33.0); MEAN CORPUSCULAR HGB CONC 31.9 g/dl (32.0-37.0); MEAN CORPUSCULAR VOLUME 82.3 fl (82.0-101.0); MEAN PLATELET VOLUME 9.4 fl (7.4-10.4); MONOCYTE # 0.6 10^3/ul (0.3-0.9); NEUTROPHIL # 9.7 10^3/ul (1.6-7.5); NEUTROPHILS % 75.3 % (39.0-77.0); PLATELET COUNT 262 10^3/UL (140-415); RED BLOOD COUNT 3.62 10^6/ul (4.70-6.10); RED CELL DISTRIBUTION WIDTH 14.8 % (11.5-14.5)
[2018-10-18 06:07] LABS: GAMMA GLUTAMYL TRANSPEPTIDASE 80 IU/L (0-50)
[2018-10-18 06:15] LABS: ALANINE AMINOTRANSFERASE 23 IU/L (13-69); ALBUMIN/GLOBULIN RATIO 0.56; ALKALINE PHOSPHATASE 221 IU/L (42-121); ANION GAP 7 (5-13); ASPARTATE AMINO TRANSFERASE 43 IU/L (15-46); BILIRUBIN,INDIRECT 0.6 mg/dl (0-1.1); BILIRUBIN,TOTAL 0.6 mg/dl (0.2-1.3); BLOOD UREA NITROGEN 23 mg/dl (7-20); CALCIUM 8.3 mg/dl (8.4-10.2); CARBON DIOXIDE 28 mmol/L (21-31); CHLORIDE 100 mmol/L (97-110); CREATININE 1.09 mg/dl (0.61-1.24); Estimated GFR > 60 mL/min (>60); GLUCOSE 117 mg/dl (70-220); SODIUM 135 mmol/L (135-144); TOTAL PROTEIN 8.3 g/dl (6.1-8.1)
[2018-10-18 06:40] LABS: PROCALCITONIN 1.04 ng/mL (0.00-0.10)
[2018-10-18] MEDS: FLUCONAZOLE 200 MG TAB PO (09:15)
[2018-10-18] MEDS: SENNA TAB PO ×2 (09:15→20:27)
[2018-10-18] MEDS: FUROSEMIDE 20 MG TAB PO (09:15)
[2018-10-18] MEDS: CEPASTAT LOZENGE MT ×2 (12:20→16:28)
[2018-10-18] MEDS: CEFTRIAXONE 2 GM/50 ML (PMX) 50 ML IVPB (12:20)
[2018-10-18] MEDS: SOD CHLORIDE 0.9% 100 ML (15:59)
[2018-10-18] MEDS: IOHEXOL 100 ML (16:00)
[2018-10-18] MEDS: ENOXAPARIN 80 MG/0.8 ML SYG SC (18:55)
[2018-10-19] MEDS: ALBUTEROL/IPRATROPIUM (NEB) 3 ML AMP HHN ×6 (01:43→21:38)
[2018-10-19] MEDS: CEPASTAT LOZENGE MT (02:10)
[2018-10-19] MEDS: GUAIFENESIN/DM 5ML CUP PO ×5 (02:10→22:29)
[2018-10-19] MEDS: morphine 2 MG INJ IV ×5 (02:11→22:29)
[2018-10-19 06:00] LABS: ADD MAN DIFF? NO
[2018-10-19 06:10] LABS: BASOPHIL # 0.1 10^3/ul (0.0-0.1); BASOPHILS % 0.6 % (0.0-2.0); EOSINOPHILS # 0.3 10^3/ul (0.0-0.5); EOSINOPHILS % 2.2 % (0.0-7.0); HEMATOCRIT 31.2 % (42.0-52.0); HEMOGLOBIN 10.1 g/dl (14.0-18.0); LYMPHOCYTES # 1.8 10^3/ul (0.8-2.9); LYMPHOCYTES % 14.9 % (15.0-51.0); MEAN CORPUSCULAR HEMOGLOBIN 26.4 pg (29.0-33.0); MEAN CORPUSCULAR HGB CONC 32.4 g/dl (32.0-37.0); MEAN CORPUSCULAR VOLUME 81.5 fl (82.0-101.0); MEAN PLATELET VOLUME 9.3 fl (7.4-10.4); MONOCYTE # 0.7 10^3/ul (0.3-0.9); MONOCYTES % 5.9 % (0.0-11.0); NEUTROPHIL # 9.1 10^3/ul (1.6-7.5); NEUTROPHILS % 75.7 % (39.0-77.0); PLATELET COUNT 306 10^3/UL (140-415); RED BLOOD COUNT 3.83 10^6/ul (4.70-6.10)
[2018-10-19 06:29] LABS: ANION GAP 7 (5-13); BLOOD UREA NITROGEN 18 mg/dl (7-20); CALCIUM 8.5 mg/dl (8.4-10.2); CARBON DIOXIDE 28 mmol/L (21-31); CHLORIDE 100 mmol/L (97-110); CREATININE 1.05 mg/dl (0.61-1.24); Estimated GFR > 60 mL/min (>60); GLUCOSE 107 mg/dl (70-220); SODIUM 135 mmol/L (135-144)
[2018-10-19 07:05] LABS: PHOSPHORUS 4.6 mg/dl (2.5-4.9)
[2018-10-19 07:05] LABS: MAGNESIUM 1.8 mg/dl (1.7-2.5)
[2018-10-19] MEDS: APIXABAN 5 MG TABLET PO ×2 (08:38→20:30)
[2018-10-19] MEDS: FLUCONAZOLE 200 MG TAB PO (08:38)
[2018-10-19] MEDS: SENNA TAB PO ×2 (08:39→20:36)
[2018-10-19] MEDS: FUROSEMIDE 20 MG TAB PO (08:39)
[2018-10-19] MEDS: CEFTRIAXONE 2 GM/50 ML (PMX) 50 ML IVPB (11:56)
[2018-10-19] MEDS: OXYCODONE/ACETAMINOPHEN (5/325) TAB PO (20:31)
[2018-10-20] MEDS: ALBUTEROL/IPRATROPIUM (NEB) 3 ML AMP HHN ×6 (01:49→19:36)
[2018-10-20] MEDS: GUAIFENESIN/DM 5ML CUP PO ×4 (04:12→16:43)
[2018-10-20] MEDS: morphine 2 MG INJ IV ×5 (04:12→20:59)
[2018-10-20 06:36] LABS: ADD MAN DIFF? NO
[2018-10-20 06:49] LABS: WHITE BLOOD COUNT 9.6 10^3/ul (4.8-10.8)
[2018-10-20 06:49] LABS: BASOPHIL # 0.1 10^3/ul (0.0-0.1); BASOPHILS % 0.6 % (0.0-2.0); EOSINOPHILS # 0.4 10^3/ul (0.0-0.5); EOSINOPHILS % 4.5 % (0.0-7.0); HEMATOCRIT 29.4 % (42.0-52.0); HEMOGLOBIN 9.3 g/dl (14.0-18.0); LYMPHOCYTES # 1.5 10^3/ul (0.8-2.9); LYMPHOCYTES % 15.6 % (15.0-51.0); MEAN CORPUSCULAR HEMOGLOBIN 26.4 pg (29.0-33.0); MEAN CORPUSCULAR HGB CONC 31.6 g/dl (32.0-37.0); MEAN CORPUSCULAR VOLUME 83.5 fl (82.0-101.0); MEAN PLATELET VOLUME 9.4 fl (7.4-10.4); MONOCYTE # 0.6 10^3/ul (0.3-0.9); MONOCYTES % 6.3 % (0.0-11.0); NEUTROPHILS % 72.4 % (39.0-77.0); PLATELET COUNT 307 10^3/UL (140-415); RED BLOOD COUNT 3.52 10^6/ul (4.70-6.10); RED CELL DISTRIBUTION WIDTH 14.9 % (11.5-14.5)
[2018-10-20 07:00] LABS: ANION GAP 7 (5-13); BLOOD UREA NITROGEN 18 mg/dl (7-20); CALCIUM 8.3 mg/dl (8.4-10.2); CARBON DIOXIDE 28 mmol/L (21-31); CHLORIDE 101 mmol/L (97-110); CREATININE 1.01 mg/dl (0.61-1.24); Estimated GFR > 60 mL/min (>60); GLUCOSE 142 mg/dl (70-220); POTASSIUM 3.7 mmol/L (3.5-5.1); SODIUM 136 mmol/L (135-144)
[2018-10-20] MEDS: APIXABAN 5 MG TABLET PO ×2 (08:19→20:11)
[2018-10-20] MEDS: FUROSEMIDE 20 MG TAB PO (08:19)
[2018-10-20] MEDS: SENNA TAB PO ×2 (08:19→20:11)
[2018-10-20] MEDS: FLUCONAZOLE 200 MG TAB PO (08:19)
[2018-10-20] MEDS: CEFTRIAXONE 2 GM/50 ML (PMX) 50 ML IVPB (11:55)
[2018-10-20] MEDS: IOHEXOL 14.3 MG(I)/ML (ADULT) BTL PO (12:01)
[2018-10-20] MEDS: SOD CHLORIDE 0.9% 100 ML (14:51)
[2018-10-20] MEDS: IOHEXOL 300MG/ML 150 ML BTL (14:51)
[2018-10-20] MEDS ORDERED: ACETYLCYSTEINE 20% 4 ML VIAL NEB (16:00)
[2018-10-20] MEDS: CEPASTAT LOZENGE MT ×2 (16:07→18:38)
[2018-10-20] MEDS: OXYCODONE/ACETAMINOPHEN (5/325) TAB PO (19:42)
[2018-10-20] MEDS: GUAIFENESIN/CODEINE 5ML CUP PO (20:59)
[2018-10-20] MEDS: IPRATROPIUM (NEB) 0.5 MG/2.5 ML AMP HHN (21:00)
[2018-10-20] MEDS: LEVALBUTEROL (NEB) 1.25 MG/0.5 ML AMP HHN (21:00)
[2018-10-21] MEDS: IPRATROPIUM (NEB) 0.5 MG/2.5 ML AMP HHN ×6 (00:35→20:46)
[2018-10-21] MEDS: LEVALBUTEROL (NEB) 1.25 MG/0.5 ML AMP HHN ×6 (00:35→20:46)
[2018-10-21] MEDS: GUAIFENESIN/CODEINE 5ML CUP PO ×2 (00:56→05:07)
[2018-10-21] MEDS: morphine 2 MG INJ IV ×5 (00:56→21:06)
[2018-10-21 06:12] LABS: ADD MAN DIFF? NO
[2018-10-21 06:19] LABS: BASOPHIL # 0.1 10^3/ul (0.0-0.1); BASOPHILS % 0.9 % (0.0-2.0); EOSINOPHILS # 0.3 10^3/ul (0.0-0.5); HEMATOCRIT 28.9 % (42.0-52.0); HEMOGLOBIN 9.1 g/dl (14.0-18.0); LYMPHOCYTES # 1.7 10^3/ul (0.8-2.9); LYMPHOCYTES % 19.4 % (15.0-51.0); MEAN CORPUSCULAR HEMOGLOBIN 26.5 pg (29.0-33.0); MEAN CORPUSCULAR HGB CONC 31.5 g/dl (32.0-37.0); MEAN CORPUSCULAR VOLUME 84.3 fl (82.0-101.0); MEAN PLATELET VOLUME 9.4 fl (7.4-10.4); MONOCYTE # 0.6 10^3/ul (0.3-0.9); MONOCYTES % 6.2 % (0.0-11.0); NEUTROPHIL # 6.2 10^3/ul (1.6-7.5); NEUTROPHILS % 69.8 % (39.0-77.0); PLATELET COUNT 318 10^3/UL (140-415); RED BLOOD COUNT 3.43 10^6/ul (4.70-6.10); RED CELL DISTRIBUTION WIDTH 15.1 % (11.5-14.5)
[2018-10-21 06:19] LABS: WHITE BLOOD COUNT 8.9 10^3/ul (4.8-10.8)
[2018-10-21 06:53] LABS: ANION GAP 6 (5-13); BLOOD UREA NITROGEN 28 mg/dl (7-20); CALCIUM 8.7 mg/dl (8.4-10.2); CARBON DIOXIDE 32 mmol/L (21-31); CHLORIDE 99 mmol/L (97-110); CREATININE 1.15 mg/dl (0.61-1.24); Estimated GFR > 60 mL/min (>60); GLUCOSE 106 mg/dl (70-220); POTASSIUM 4.7 mmol/L (3.5-5.1); SODIUM 137 mmol/L (135-144)
[2018-10-21] MEDS ORDERED: GUAIFENESIN/CODEINE 5ML CUP PO (08:00)
[2018-10-21] MEDS: FLUCONAZOLE 200 MG TAB PO (09:36)
[2018-10-21] MEDS: SENNA TAB PO ×2 (09:36→21:02)
[2018-10-21] MEDS: FUROSEMIDE 20 MG TAB PO (09:37)
[2018-10-21] MEDS: APIXABAN 5 MG TABLET PO (09:37)
[2018-10-21] MEDS: GUAIFENESIN/DM 5ML CUP PO ×3 (09:50→19:42)
[2018-10-21] MEDS: CEPASTAT LOZENGE MT ×5 (09:50→19:43)
[2018-10-21] MEDS: CEFTRIAXONE 2 GM/50 ML (PMX) 50 ML IVPB (11:35)
[2018-10-21] MEDS: OXYCODONE/ACETAMINOPHEN (5/325) TAB PO (12:06)
[2018-10-21] MEDS: METHYLPREDNISOLONE 40 MG INJ IV ×2 (14:20→21:05)
[2018-10-21] MEDS: ONDANSETRON INJ 8 MG in DEXTROSE 5% 50 ML IV (21:03)
[2018-10-22] MEDS: LEVALBUTEROL (NEB) 1.25 MG/0.5 ML AMP HHN ×6 (00:56→20:29)
[2018-10-22] MEDS: IPRATROPIUM (NEB) 0.5 MG/2.5 ML AMP HHN ×6 (00:56→20:29)
[2018-10-22] MEDS: morphine 2 MG INJ IV ×4 (02:04→19:58)
[2018-10-22 05:08] LABS: ADD MAN DIFF? NO
[2018-10-22 05:12] LABS: WHITE BLOOD COUNT 4.8 10^3/ul (4.8-10.8)
[2018-10-22 05:12] LABS: ABNORMAL IP MESSAGE 1; HEMATOCRIT 25.4 % (42.0-52.0); LYMPHOCYTES # 0.5 10^3/ul (0.8-2.9); LYMPHOCYTES % 10.6 % (15.0-51.0); MEAN CORPUSCULAR HEMOGLOBIN 26.2 pg (29.0-33.0); MEAN CORPUSCULAR HGB CONC 31.5 g/dl (32.0-37.0); MEAN CORPUSCULAR VOLUME 83.3 fl (82.0-101.0); MEAN PLATELET VOLUME 9.6 fl (7.4-10.4); MONOCYTE # 0.1 10^3/ul (0.3-0.9); NEUTROPHIL # 4.2 10^3/ul (1.6-7.5); NEUTROPHILS % 87.8 % (39.0-77.0); PLATELET COUNT 297 10^3/UL (140-415); POSITIVE DIFF @See below; RED BLOOD COUNT 3.05 10^6/ul (4.70-6.10); RED CELL DISTRIBUTION WIDTH 14.7 % (11.5-14.5)
[2018-10-22] MEDS: METHYLPREDNISOLONE 40 MG INJ IV ×3 (06:17→21:56)
[2018-10-22 06:50] LABS: PROCALCITONIN 0.62 ng/mL (0.00-0.10)
[2018-10-22] MEDS: SENNA TAB PO ×2 (09:09→21:56)
[2018-10-22] MEDS: FLUCONAZOLE 200 MG TAB PO (09:10)
[2018-10-22] MEDS: FUROSEMIDE 20 MG TAB PO (09:10)
[2018-10-22] MEDS: CEFTRIAXONE 2 GM/50 ML (PMX) 50 ML IVPB (11:59)
[2018-10-22] MEDS: CEPASTAT LOZENGE MT ×2 (14:15→19:11)
[2018-10-22] MEDS: GUAIFENESIN/DM 5ML CUP PO ×2 (14:15→19:10)
[2018-10-22] MEDS: APIXABAN 5 MG TABLET PO (21:56)
[2018-10-23] MEDS: LEVALBUTEROL (NEB) 1.25 MG/0.5 ML AMP HHN ×6 (01:10→21:02)
[2018-10-23] MEDS: IPRATROPIUM (NEB) 0.5 MG/2.5 ML AMP HHN ×6 (01:10→21:02)
[2018-10-23] MEDS: morphine 2 MG INJ IV ×5 (01:45→23:52)
[2018-10-23 06:12] LABS: ADD MAN DIFF? NO
[2018-10-23 06:19] LABS: BASOPHILS % 0.1 % (0.0-2.0); HEMATOCRIT 25.4 % (42.0-52.0); HEMOGLOBIN 7.9 g/dl (14.0-18.0); LYMPHOCYTES # 0.7 10^3/ul (0.8-2.9); LYMPHOCYTES % 5.6 % (15.0-51.0); MEAN CORPUSCULAR HEMOGLOBIN 26.4 pg (29.0-33.0); MEAN CORPUSCULAR HGB CONC 31.1 g/dl (32.0-37.0); MEAN CORPUSCULAR VOLUME 84.9 fl (82.0-101.0); MEAN PLATELET VOLUME 9.8 fl (7.4-10.4); MONOCYTE # 0.2 10^3/ul (0.3-0.9); MONOCYTES % 1.3 % (0.0-11.0); NEUTROPHIL # 11.4 10^3/ul (1.6-7.5); NEUTROPHILS % 91.9 % (39.0-77.0); PLATELET COUNT 353 10^3/UL (140-415); RED BLOOD COUNT 2.99 10^6/ul (4.70-6.10); RED CELL DISTRIBUTION WIDTH 15.2 % (11.5-14.5)
[2018-10-23 06:19] LABS: WHITE BLOOD COUNT 12.5 10^3/ul (4.8-10.8)
[2018-10-23 06:44] LABS: ALANINE AMINOTRANSFERASE 20 IU/L (13-69); ALBUMIN 3.5 g/dl (3.3-4.9); ALBUMIN/GLOBULIN RATIO 0.64; ALKALINE PHOSPHATASE 229 IU/L (42-121); ANION GAP 8 (5-13); ASPARTATE AMINO TRANSFERASE 37 IU/L (15-46); BILIRUBIN,INDIRECT 0.4 mg/dl (0-1.1); BILIRUBIN,TOTAL 0.4 mg/dl (0.2-1.3); BLOOD UREA NITROGEN 35 mg/dl (7-20); CALCIUM 8.8 mg/dl (8.4-10.2); CARBON DIOXIDE 29 mmol/L (21-31); CHLORIDE 99 mmol/L (97-110); CREATININE 0.98 mg/dl (0.61-1.24); Estimated GFR > 60 mL/min (>60); GLUCOSE 165 mg/dl (70-220); SODIUM 136 mmol/L (135-144); TOTAL PROTEIN 8.9 g/dl (6.1-8.1)
[2018-10-23 06:45] LABS: INR 1.37; PT RATIO 1.3
[2018-10-23 06:46] LABS: PARTIAL THROMBOPLASTIN TIME 39.7 Sec (23.0-35.0)
[2018-10-23 06:49] LABS: MAGNESIUM 1.8 mg/dl (1.7-2.5)
[2018-10-23] MEDS: METHYLPREDNISOLONE 40 MG INJ IV ×3 (06:51→21:30)
[2018-10-23 07:24] LABS: LACTATE DEHYDROGENASE 751 IU/L (313-618)
[2018-10-23] MEDS: FUROSEMIDE 20 MG TAB PO (08:12)
[2018-10-23] MEDS: SENNA TAB PO ×2 (08:12→21:00)
[2018-10-23] MEDS: FLUCONAZOLE 200 MG TAB PO (08:12)
[2018-10-23] MEDS: APIXABAN 5 MG TABLET PO (08:12)
[2018-10-23] MEDS: CEFTRIAXONE 2 GM/50 ML (PMX) 50 ML IVPB (11:30)
[2018-10-23] MEDS: HEPARIN 1000 UNITS/ML 10 ML INJ IV (16:53)
[2018-10-23] MEDS: HEPARIN 25000 UNITS/250 ML 250 ML IV (16:56)
[2018-10-23] MEDS: EPOETIN ALFA-EPBX (NON-ESRD 10,000 UNIT/ML VIAL SC (17:39)
[2018-10-23] MEDS: GUAIFENESIN/DM 5ML CUP PO (22:41)
[2018-10-24 00:13] LABS: PARTIAL THROMBOPLASTIN TIME 71.6 Sec (23.0-35.0)
[2018-10-24] MEDS: LEVALBUTEROL (NEB) 1.25 MG/0.5 ML AMP HHN ×6 (01:33→20:52)
[2018-10-24] MEDS: IPRATROPIUM (NEB) 0.5 MG/2.5 ML AMP HHN ×6 (01:33→20:52)
[2018-10-24] MEDS: morphine 2 MG INJ IV ×5 (04:36→22:45)
[2018-10-24 05:53] LABS: ADD MAN DIFF? NO
[2018-10-24 06:01] LABS: BASOPHILS % 0.1 % (0.0-2.0); HEMATOCRIT 25.9 % (42.0-52.0); HEMOGLOBIN 8.1 g/dl (14.0-18.0); LYMPHOCYTES # 0.8 10^3/ul (0.8-2.9); LYMPHOCYTES % 6.1 % (15.0-51.0); MEAN CORPUSCULAR HEMOGLOBIN 26.6 pg (29.0-33.0); MEAN CORPUSCULAR HGB CONC 31.3 g/dl (32.0-37.0); MEAN CORPUSCULAR VOLUME 84.9 fl (82.0-101.0); MEAN PLATELET VOLUME 9.7 fl (7.4-10.4); MONOCYTE # 0.3 10^3/ul (0.3-0.9); NEUTROPHIL # 11.1 10^3/ul (1.6-7.5); NEUTROPHILS % 90.7 % (39.0-77.0); PLATELET COUNT 352 10^3/UL (140-415); RED BLOOD COUNT 3.05 10^6/ul (4.70-6.10); RED CELL DISTRIBUTION WIDTH 15.6 % (11.5-14.5)
[2018-10-24 06:01] LABS: WHITE BLOOD COUNT 12.2 10^3/ul (4.8-10.8)
[2018-10-24] MEDS: METHYLPREDNISOLONE 40 MG INJ IV (06:03)
[2018-10-24 06:27] LABS: PARTIAL THROMBOPLASTIN TIME 45.7 Sec (23.0-35.0)
[2018-10-24 06:34] LABS: ALANINE AMINOTRANSFERASE 26 IU/L (13-69); ALBUMIN 3.3 g/dl (3.3-4.9); ALBUMIN/GLOBULIN RATIO 0.63; ALKALINE PHOSPHATASE 219 IU/L (42-121); ANION GAP 6 (5-13); ASPARTATE AMINO TRANSFERASE 30 IU/L (15-46); BILIRUBIN,INDIRECT 0.3 mg/dl (0-1.1); BILIRUBIN,TOTAL 0.3 mg/dl (0.2-1.3); BLOOD UREA NITROGEN 40 mg/dl (7-20); CALCIUM 8.8 mg/dl (8.4-10.2); CARBON DIOXIDE 29 mmol/L (21-31); CHLORIDE 101 mmol/L (97-110); CREATININE 0.95 mg/dl (0.61-1.24); Estimated GFR > 60 mL/min (>60); GLUCOSE 160 mg/dl (70-220); POTASSIUM 4.3 mmol/L (3.5-5.1); SODIUM 136 mmol/L (135-144); TOTAL PROTEIN 8.5 g/dl (6.1-8.1)
[2018-10-24 06:52] LABS: PROCALCITONIN 0.24 ng/mL (0.00-0.10)
[2018-10-24] MEDS: HEPARIN 25000 UNITS/250 ML 250 ML IV ×3 (06:54→22:43)
[2018-10-24] MEDS: HEPARIN 1000 UNITS/ML 10 ML INJ IV ×2 (06:55→15:24)
[2018-10-24] MEDS: FUROSEMIDE 20 MG TAB PO (09:07)
[2018-10-24] MEDS: FLUCONAZOLE 200 MG TAB PO (09:07)
[2018-10-24] MEDS: SENNA TAB PO ×2 (09:07→20:21)
[2018-10-24 11:23] LABS: HAPTOGLOBIN 134 mg/dL (43-212)
[2018-10-24] MEDS: CEFTRIAXONE 2 GM/50 ML (PMX) 50 ML IVPB (12:26)
[2018-10-24 14:54] LABS: PARTIAL THROMBOPLASTIN TIME 55.8 Sec (23.0-35.0)
[2018-10-24] MEDS ORDERED: HEPARIN 5,000 UNIT/1 ML VIAL IV (15:30)
[2018-10-24 21:48] LABS: PARTIAL THROMBOPLASTIN TIME 71.8 Sec (23.0-35.0)
[2018-10-25] MEDS: LEVALBUTEROL (NEB) 1.25 MG/0.5 ML AMP HHN ×6 (01:17→20:30)
[2018-10-25] MEDS: IPRATROPIUM (NEB) 0.5 MG/2.5 ML AMP HHN ×6 (01:17→20:30)
[2018-10-25] MEDS: morphine 2 MG INJ IV ×4 (05:42→20:24)
[2018-10-25 05:53] LABS: ADD MAN DIFF? NO
[2018-10-25 06:01] LABS: RETICULOCYTE COUNT # 0.088 X10^6 (0.020-0.110); RETICULOCYTE COUNT % 2.9 % (0.5-1.5)
[2018-10-25 06:01] LABS: RETICULOCYTE RBC 3.08
[2018-10-25 06:02] LABS: WHITE BLOOD COUNT 13.9 10^3/ul (4.8-10.8)
[2018-10-25 06:02] LABS: BASOPHILS % 0.1 % (0.0-2.0); HEMATOCRIT 27.1 % (42.0-52.0); HEMOGLOBIN 8.3 g/dl (14.0-18.0); LYMPHOCYTES # 1.5 10^3/ul (0.8-2.9); LYMPHOCYTES % 10.5 % (15.0-51.0); MEAN CORPUSCULAR HEMOGLOBIN 26.1 pg (29.0-33.0); MEAN CORPUSCULAR HGB CONC 30.6 g/dl (32.0-37.0); MEAN CORPUSCULAR VOLUME 85.2 fl (82.0-101.0); MEAN PLATELET VOLUME 9.4 fl (7.4-10.4); MONOCYTE # 1.1 10^3/ul (0.3-0.9); MONOCYTES % 7.5 % (0.0-11.0); NEUTROPHIL # 11.2 10^3/ul (1.6-7.5); NEUTROPHILS % 80.5 % (39.0-77.0); PLATELET COUNT 386 10^3/UL (140-415); RED BLOOD COUNT 3.18 10^6/ul (4.70-6.10); RED CELL DISTRIBUTION WIDTH 15.9 % (11.5-14.5)
[2018-10-25 06:20] LABS: PARTIAL THROMBOPLASTIN TIME 56.3 Sec (23.0-35.0)
[2018-10-25 06:33] LABS: PHOSPHORUS 3.6 mg/dl (2.5-4.9)
[2018-10-25 06:33] LABS: MAGNESIUM 1.6 mg/dl (1.7-2.5)
[2018-10-25 06:41] LABS: ANION GAP 6 (5-13); Estimated GFR > 60 mL/min (>60)
[2018-10-25 06:42] LABS: ALBUMIN/GLOBULIN RATIO 0.66; BILIRUBIN,TOTAL 0.4 mg/dl (0.2-1.3)
[2018-10-25 06:43] LABS: ALANINE AMINOTRANSFERASE 32 IU/L (13-69); ALBUMIN 3.3 g/dl (3.3-4.9); ALKALINE PHOSPHATASE 220 IU/L (42-121); ASPARTATE AMINO TRANSFERASE 26 IU/L (15-46); BILIRUBIN,INDIRECT 0.4 mg/dl (0-1.1); BLOOD UREA NITROGEN 39 mg/dl (7-20); CALCIUM 8.8 mg/dl (8.4-10.2); CARBON DIOXIDE 28 mmol/L (21-31); CHLORIDE 104 mmol/L (97-110); CREATININE 0.93 mg/dl (0.61-1.24); GLUCOSE 120 mg/dl (70-220); POTASSIUM 4.1 mmol/L (3.5-5.1); SODIUM 138 mmol/L (135-144); TOTAL PROTEIN 8.3 g/dl (6.1-8.1)
[2018-10-25] MEDS: HEPARIN 1000 UNITS/ML 10 ML INJ IV (06:44)
[2018-10-25] MEDS: HEPARIN 25000 UNITS/250 ML 250 ML IV ×3 (06:44→22:11)
[2018-10-25] MEDS: predniSONE 10 MG TAB PO (08:10)
[2018-10-25] MEDS: SENNA TAB PO ×2 (08:11→20:24)
[2018-10-25] MEDS: FLUCONAZOLE 200 MG TAB PO (08:11)
[2018-10-25] MEDS: FUROSEMIDE 20 MG TAB PO (08:11)
[2018-10-25] MEDS: CEFTRIAXONE 2 GM/50 ML (PMX) 50 ML IVPB (10:35)
[2018-10-25 15:18] LABS: PARTIAL THROMBOPLASTIN TIME 85.1 Sec (23.0-35.0)
[2018-10-25] MEDS: EPOETIN ALFA-EPBX (NON-ESRD 10,000 UNIT/ML VIAL SC (16:19)
[2018-10-25] MEDS: MAGNESIUM OXIDE 400 MG TAB PO (16:23)
[2018-10-25 21:38] LABS: PARTIAL THROMBOPLASTIN TIME 83.8 Sec (23.0-35.0)
[2018-10-26] MEDS: morphine 2 MG INJ IV ×5 (01:10→21:27)
[2018-10-26] MEDS: LEVALBUTEROL (NEB) 1.25 MG/0.5 ML AMP HHN ×6 (01:40→20:44)
[2018-10-26] MEDS: IPRATROPIUM (NEB) 0.5 MG/2.5 ML AMP HHN ×6 (01:40→20:44)
[2018-10-26 05:55] LABS: ADD MAN DIFF? NO
[2018-10-26 06:16] LABS: BASOPHIL # 0.1 10^3/ul (0.0-0.1); BASOPHILS % 0.4 % (0.0-2.0); EOSINOPHILS # 0.1 10^3/ul (0.0-0.5); EOSINOPHILS % 0.3 % (0.0-7.0); HEMATOCRIT 27.7 % (42.0-52.0); HEMOGLOBIN 8.7 g/dl (14.0-18.0); LYMPHOCYTES # 3.3 10^3/ul (0.8-2.9); LYMPHOCYTES % 21.1 % (15.0-51.0); MEAN CORPUSCULAR HEMOGLOBIN 26.7 pg (29.0-33.0); MEAN CORPUSCULAR HGB CONC 31.4 g/dl (32.0-37.0); MEAN PLATELET VOLUME 9.4 fl (7.4-10.4); MONOCYTE # 1.1 10^3/ul (0.3-0.9); MONOCYTES % 7.4 % (0.0-11.0); NEUTROPHIL # 10.3 10^3/ul (1.6-7.5); NEUTROPHILS % 66.7 % (39.0-77.0); NUCLEATED RED BLOOD CELLS # 0.1 10^3/ul (0.0-0.0); NUCLEATED RED BLOOD CELLS% 0.6 /100WBC (0.0-0.0); PLATELET COUNT 405 10^3/UL (140-415); RED BLOOD COUNT 3.26 10^6/ul (4.70-6.10); RED CELL DISTRIBUTION WIDTH 16.1 % (11.5-14.5)
[2018-10-26 06:16] LABS: WHITE BLOOD COUNT 15.5 10^3/ul (4.8-10.8)
[2018-10-26 06:24] LABS: PARTIAL THROMBOPLASTIN TIME 69.5 Sec (23.0-35.0)
[2018-10-26 06:36] LABS: ALANINE AMINOTRANSFERASE 33 IU/L (13-69); ALBUMIN 3.2 g/dl (3.3-4.9); ALKALINE PHOSPHATASE 193 IU/L (42-121); ANION GAP 7 (5-13); ASPARTATE AMINO TRANSFERASE 29 IU/L (15-46); BILIRUBIN,INDIRECT 0.3 mg/dl (0-1.1); BILIRUBIN,TOTAL 0.3 mg/dl (0.2-1.3); BLOOD UREA NITROGEN 39 mg/dl (7-20); CALCIUM 8.5 mg/dl (8.4-10.2); CARBON DIOXIDE 28 mmol/L (21-31); CHLORIDE 103 mmol/L (97-110); CREATININE 1.04 mg/dl (0.61-1.24); Estimated GFR > 60 mL/min (>60); GLUCOSE 104 mg/dl (70-220); SODIUM 138 mmol/L (135-144); TOTAL PROTEIN 8.5 g/dl (6.1-8.1)
[2018-10-26] MEDS: FUROSEMIDE 20 MG TAB PO (09:58)
[2018-10-26] MEDS: SENNA TAB PO ×2 (09:58→21:26)
[2018-10-26] MEDS: CEPASTAT LOZENGE MT ×3 (09:58→21:26)
[2018-10-26] MEDS: GUAIFENESIN/DM 5ML CUP PO ×3 (09:58→21:26)
[2018-10-26] MEDS: FLUCONAZOLE 200 MG TAB PO (09:58)
[2018-10-26] MEDS: predniSONE 10 MG TAB PO (09:58)
[2018-10-26] MEDS: DOCUSATE SODIUM 100 MG CAP PO (09:58)
[2018-10-26] MEDS: OXYCODONE/ACETAMINOPHEN (5/325) TAB PO ×2 (09:59→16:29)
[2018-10-26] MEDS: CEFTRIAXONE 2 GM/50 ML (PMX) 50 ML IVPB (10:00)
[2018-10-26] MEDS: HEPARIN 25000 UNITS/250 ML 250 ML IV ×2 (11:39→22:27)
[2018-10-27] MEDS: IPRATROPIUM (NEB) 0.5 MG/2.5 ML AMP HHN ×6 (00:53→22:08)
[2018-10-27] MEDS: LEVALBUTEROL (NEB) 1.25 MG/0.5 ML AMP HHN ×6 (00:53→22:08)
[2018-10-27] MEDS: CEPASTAT LOZENGE MT ×4 (00:56→21:12)
[2018-10-27] MEDS: morphine 2 MG INJ IV ×4 (01:29→21:13)
[2018-10-27 06:07] LABS: ADD MAN DIFF? NO
[2018-10-27 06:21] LABS: ABNORMAL IP MESSAGE 1; BASOPHIL # 0.1 10^3/ul (0.0-0.1); BASOPHILS % 0.4 % (0.0-2.0); EOSINOPHILS # 0.1 10^3/ul (0.0-0.5); EOSINOPHILS % 0.5 % (0.0-7.0); HEMATOCRIT 28.4 % (42.0-52.0); LYMPHOCYTES # 3.8 10^3/ul (0.8-2.9); LYMPHOCYTES % 23.6 % (15.0-51.0); MEAN CORPUSCULAR HEMOGLOBIN 26.5 pg (29.0-33.0); MEAN CORPUSCULAR HGB CONC 31.7 g/dl (32.0-37.0); MEAN CORPUSCULAR VOLUME 83.5 fl (82.0-101.0); MEAN PLATELET VOLUME 9.5 fl (7.4-10.4); MONOCYTE # 1.2 10^3/ul (0.3-0.9); MONOCYTES % 7.2 % (0.0-11.0); NEUTROPHIL # 9.9 10^3/ul (1.6-7.5); NUCLEATED RED BLOOD CELLS # 0.2 10^3/ul (0.0-0.0); NUCLEATED RED BLOOD CELLS% 0.9 /100WBC (0.0-0.0); PLATELET COUNT 393 10^3/UL (140-415); POSITIVE DIFF @See below; RED CELL DISTRIBUTION WIDTH 16.4 % (11.5-14.5)
[2018-10-27 06:45] LABS: ALANINE AMINOTRANSFERASE 33 IU/L (13-69); ALBUMIN 3.4 g/dl (3.3-4.9); ALBUMIN/GLOBULIN RATIO 0.68; ALKALINE PHOSPHATASE 168 IU/L (42-121); ANION GAP 10 (5-13); ASPARTATE AMINO TRANSFERASE 25 IU/L (15-46); BILIRUBIN,INDIRECT 0.4 mg/dl (0-1.1); BILIRUBIN,TOTAL 0.4 mg/dl (0.2-1.3); BLOOD UREA NITROGEN 37 mg/dl (7-20); CALCIUM 8.9 mg/dl (8.4-10.2); CARBON DIOXIDE 26 mmol/L (21-31); CHLORIDE 102 mmol/L (97-110); CREATININE 1.12 mg/dl (0.61-1.24); Estimated GFR > 60 mL/min (>60); GLUCOSE 117 mg/dl (70-220); SODIUM 138 mmol/L (135-144); TOTAL PROTEIN 8.4 g/dl (6.1-8.1)
[2018-10-27 06:55] LABS: MAGNESIUM 1.7 mg/dl (1.7-2.5)
[2018-10-27 06:55] LABS: PHOSPHORUS 4.4 mg/dl (2.5-4.9)
[2018-10-27 07:01] LABS: PROCALCITONIN 0.18 ng/mL (0.00-0.10)
[2018-10-27 07:11] LABS: PARTIAL THROMBOPLASTIN TIME 84.2 Sec (23.0-35.0)
[2018-10-27] MEDS: SENNA TAB PO ×2 (08:37→21:12)
[2018-10-27] MEDS: GUAIFENESIN/DM 5ML CUP PO ×3 (08:37→21:12)
[2018-10-27] MEDS: DOCUSATE SODIUM 100 MG CAP PO (08:38)
[2018-10-27] MEDS: FUROSEMIDE 20 MG TAB PO (08:38)
[2018-10-27] MEDS: FLUCONAZOLE 200 MG TAB PO (08:38)
[2018-10-27] MEDS: predniSONE 10 MG TAB PO (08:38)
[2018-10-27] MEDS: HEPARIN 25000 UNITS/250 ML 250 ML IV ×2 (09:33→21:30)
[2018-10-27] MEDS: CEFTRIAXONE 2 GM/50 ML (PMX) 50 ML IVPB (11:00)
[2018-10-28] MEDS: LEVALBUTEROL (NEB) 1.25 MG/0.5 ML AMP HHN ×5 (00:48→21:00)
[2018-10-28] MEDS: IPRATROPIUM (NEB) 0.5 MG/2.5 ML AMP HHN ×5 (00:48→21:00)
[2018-10-28] MEDS: morphine 2 MG INJ IV ×4 (02:53→20:19)
[2018-10-28] MEDS: GUAIFENESIN/DM 5ML CUP PO ×4 (02:53→20:19)
[2018-10-28] MEDS: CEPASTAT LOZENGE MT (02:54)
[2018-10-28 06:40] LABS: PARTIAL THROMBOPLASTIN TIME 86.2 Sec (23.0-35.0)
[2018-10-28] MEDS: FUROSEMIDE 20 MG TAB PO (09:04)
[2018-10-28] MEDS: FLUCONAZOLE 200 MG TAB PO (09:04)
[2018-10-28] MEDS: predniSONE 10 MG TAB PO (09:04)
[2018-10-28] MEDS: SENNA TAB PO ×2 (09:13→20:19)
[2018-10-28] MEDS: HEPARIN 25000 UNITS/250 ML 250 ML IV ×2 (09:21→19:16)
[2018-10-28] MEDS: CEFTRIAXONE 2 GM/50 ML (PMX) 50 ML IVPB (11:29)
[2018-10-28] MEDS: EPOETIN ALFA-EPBX (NON-ESRD 10,000 UNIT/ML VIAL SC (17:23)
[2018-10-29] MEDS: IPRATROPIUM (NEB) 0.5 MG/2.5 ML AMP HHN ×5 (00:24→16:34)
[2018-10-29] MEDS: LEVALBUTEROL (NEB) 1.25 MG/0.5 ML AMP HHN ×5 (00:24→16:34)
[2018-10-29] MEDS: GUAIFENESIN/DM 5ML CUP PO ×4 (00:35→17:13)
[2018-10-29] MEDS: morphine 2 MG INJ IV ×4 (00:35→17:14)
[2018-10-29 06:43] LABS: ADD MAN DIFF? NO
[2018-10-29 06:57] LABS: WHITE BLOOD COUNT 17.7 10^3/ul (4.8-10.8)
[2018-10-29 06:57] LABS: ABNORMAL IP MESSAGE 1; BASOPHILS % 0.2 % (0.0-2.0); EOSINOPHILS # 0.4 10^3/ul (0.0-0.5); EOSINOPHILS % 2.4 % (0.0-7.0); HEMATOCRIT 29.5 % (42.0-52.0); HEMOGLOBIN 9.4 g/dl (14.0-18.0); LYMPHOCYTES # 4.5 10^3/ul (0.8-2.9); LYMPHOCYTES % 25.3 % (15.0-51.0); MEAN CORPUSCULAR HEMOGLOBIN 26.1 pg (29.0-33.0); MEAN CORPUSCULAR HGB CONC 31.9 g/dl (32.0-37.0); MEAN CORPUSCULAR VOLUME 81.9 fl (82.0-101.0); MONOCYTE # 1.5 10^3/ul (0.3-0.9); MONOCYTES % 8.4 % (0.0-11.0); NEUTROPHIL # 9.6 10^3/ul (1.6-7.5); NUCLEATED RED BLOOD CELLS # 0.2 10^3/ul (0.0-0.0); PLATELET COUNT 393 10^3/UL (140-415); POSITIVE DIFF @See below
[2018-10-29 07:23] LABS: PHOSPHORUS 5.3 mg/dl (2.5-4.9)
[2018-10-29 07:23] LABS: MAGNESIUM 1.7 mg/dl (1.7-2.5)
[2018-10-29 07:24] LABS: ANION GAP 8 (5-13); BLOOD UREA NITROGEN 35 mg/dl (7-20); CALCIUM 9.1 mg/dl (8.4-10.2); CARBON DIOXIDE 27 mmol/L (21-31); CHLORIDE 102 mmol/L (97-110); CREATININE 0.97 mg/dl (0.61-1.24); Estimated GFR > 60 mL/min (>60); GLUCOSE 102 mg/dl (70-220); SODIUM 137 mmol/L (135-144)
[2018-10-29] MEDS: HEPARIN 25000 UNITS/250 ML 250 ML IV (08:33)
[2018-10-29 08:54] LABS: PARTIAL THROMBOPLASTIN TIME 93.4 Sec (23.0-35.0)
[2018-10-29] MEDS: SENNA TAB PO (09:21)
[2018-10-29] MEDS: FLUCONAZOLE 200 MG TAB PO (09:21)
[2018-10-29] MEDS: FUROSEMIDE 20 MG TAB PO (09:21)
[2018-10-29 09:48] LABS: ANISOCYTOSIS 1+ (0-0); BAND NEUTROPHILS #M 0.5 10^3/ul (0.0-0.6); BAND NEUTROPHILS % (M) 3 % (0-4); EOSINOPHILS % (M) 5 % (0-7); ERYTHROBLAST% (NRBC) (M) 1 % (0-0); GIANT THROMBO% (M) 1 % (0-0); HYPOCHROMASIA 1+ (0-0); LYMPHOCYTES #M 4.9 10^3/ul (0.8-2.9); LYMPHOCYTES % (M) 28 % (15-51); METAMYELOCYTES #M 0.1 10^3/ul (0.0-0.0); METAMYELOCYTES %M 1 % (0-0); MONOCYTE #M 0.5 10^3/ul (0.3-0.9); MONOCYTES % (M) 3 % (0-11); MYELOCYTES #M 0.5 10^3/ul (0.0-0.0); MYELOCYTES % (M) 3 % (0-0); PLATELET ESTIMATE NORMAL; POIKILOCYTOSIS 1+ (0-0); POLYCHROMASIA 2+ (0-0); SEG NEUT #M 10.2 10^3/ul (1.6-7.5); SEGMENTED NEUTROPHILS (M) % 57 % (39-77); SMUDGE%M 7 % (0-0); TARGET CELLS 1+ (0-0)
[2018-10-29] MEDS: CEFTRIAXONE 2 GM/50 ML (PMX) 50 ML IVPB (10:17)
== END 2018-10-29 20:04 | DRG 871 ==
LOC: E/R 10:07 → 6WM 10-09 15:51 → ICU 15:13
DX: A41.9 Sepsis, unspecified organism (principal); I33.0 Acute and subacute infective endocarditis; I26.90 Septic pulmonary embolism without acute cor pulmonale; N17.0 Acute kidney failure with tubular necrosis; J96.91 Respiratory failure, unspecified with hypoxia; J96.01 Acute respiratory failure with hypoxia; J18.9 Pneumonia, unspecified organism; I50.31 Acute diastolic (congestive) heart failure; I21.A1 Myocardial infarction type 2; I82.220 Acute embolism and thrombosis of inferior vena cava; I76 Septic arterial embolism; T82.6XXA Infection and inflammatory reaction due to cardiac valve prosthesis, initial encounter; E87.1 Hypo-osmolality and hyponatremia; E87.0 Hyperosmolality and hypernatremia; F15.10 Other stimulant abuse, uncomplicated; F19.10 Other psychoactive substance abuse, uncomplicated; Y83.9 Surgical procedure, unspecified as the cause of abnormal reaction of the patient, or of later complication, without mention of misadventure at the time of the procedure; D64.9 Anemia, unspecified; E83.9 Disorder of mineral metabolism, unspecified; R91.8 Other nonspecific abnormal finding of lung field; R59.9 Enlarged lymph nodes, unspecified; I51.7 Cardiomegaly; R65.20 Severe sepsis without septic shock; A49.02 Methicillin resistant Staphylococcus aureus infection, unspecified site; Z87.898 Personal history of other specified conditions; Z72.0 Tobacco use; Z86.59 Personal history of other mental and behavioral disorders; Z95.2 Presence of prosthetic heart valve; Z95.0 Presence of cardiac pacemaker
CPT/HCPCS: 36415; 36600; 71045; 71275; 74176; 74177; 76604; 76700; 76705; 76775; 78806; 80048; 80053; 80202; 81001; 81003; 81240; 82043; 82668; 82803; 82962; 82977; 83010; 83036; 83605; 83615; 83735; 83890; 84100; 84145; 84155; 84300; 84484; 85014; 85018; 85025; 85045; 85384; 85610; 85613; 85730; 86146; 86147; 86592; 86635; 86738; 87040-91; 87070; 87081; 87086; 87449; 93005; 93306; 93970; 94640; 94664; 96374; 96375; 96376; 99285-25